=== PATIENT | female | born 1995 | race Caucasian/White ===

== ENCOUNTER 2016-09-07 18:29 | Emergency (ER) | payer SELFPAY ==
[2016-09-07] MEDS ORDERED: Bupivacaine 0.5% 10 ML SDV INJECT ONE (18:42)
[2016-09-07] MEDS ORDERED: Lidocaine 1% 20 ML MDV INJECT ONE (18:42)
[2016-09-07] MEDS ORDERED: Lidocaine 2% Viscous Solution 15 ML Cup PO ONE (18:42)
[2016-09-07] MEDS ORDERED: Benzocaine 20% Topical Spray UD MUCMEM ONE (18:42)
[2016-09-07 18:49] VITALS: BP 163/100
--- NOTE | 2016-09-07 18:58 | EDM.PDOC ---
ED HPI GENERAL MEDICAL PROBLEM - General Chief Complaint: General Stated Complaint: TOOTH PAIN Time Seen by Provider: 09/07/16 18:40 Source of Information: Reports: Patient History Limitations: Reports: No Limitations - History of Present Illness INITIAL COMMENTS - FREE TEXT/NARRATIVE: History of present illness: []Patient's had months of pain in her upper right molar and was at [facility] today when she developed sudden onset of severe pain. He denies any fevers, swelling biting on anything damaged tooth. Review of systems: As per history of present illness and below otherwise all systems reviewed and negative. Past medical history: As per history of present illness and as reviewed below otherwise noncontributory. Surgical history: As per history of present illness and as reviewed below otherwise noncontributory. Social history: No reported history of drug or alcohol abuse. Family history: As per history of present illness and as reviewed below otherwise noncontributory. Physical exam: General: Well developed, well nourished in NAD HEENT: Atraumatic, normocephalic, pupils reactive, negative for conjunctival pallor or scleral icterus, mucous membranes moist, throat clear, neck supple, nontender, trachea midline. Lungs: Clear to auscultation, breath sounds equal bilaterally, chest nontender. Heart: S1S2, regular, negative for clicks, rubs, or JVD. Abdomen: Soft, nondistended, nontender. Negative for masses or hepatosplenomegaly. Negative for costovertebral tenderness. Pelvis: Stable nontender. Genitourinary: Deferred. Rectal: Deferred. Extremities: Atraumatic, negative for cords or calf pain. Neurovascular unremarkable. Neuro: Awake, alert, oriented. Cranial nerves II through XII unremarkable. Cerebellum unremarkable. Motor and sensory unremarkable throughout. Exam nonfocal. Diagnostics: [] Therapeutics: []Dental balls, lidocaine and bupivacaine nerve block Impression: []Dental pain Plan: []Penicillin and tramadol for pain dental balls for pain follow-up with a dentist STEVE Definitive disposition and diagnosis as appropriate pending reevaluation and review of above. Dental Pain Pain Score (Numeric/FACES): 10 - Related Data Allergies Allergy/AdvReac Type Severity Reaction Status Date / Time sumatriptan [From Imitrex] Allergy Rash Verified 09/07/16 18:46 sumatriptan succinate Allergy Rash Verified 09/07/16 18:46 [From Imitrex] Home Meds: Home Meds Penicillin V Potassium 500 mg PO Q6HR #40 tab 09/07/16 [Rx] traMADol [Ultram] 50 mg PO Q8H PRN #12 tablet 09/07/16 [Rx] Past Medical History - Past Surgical History HEENT Surgical History: Reports: Eye Surgery GI Surgical History: Reports: Appendectomy Social & Family History - Family History Family Medical History: Noncontributory - Tobacco Use Smoking Status *Q: Current Every Day Smoker Years of Tobacco use: 11 Packs/Tins Daily: 0.5 Used Tobacco, but Quit: No Second Hand Smoke Exposure: Yes - Caffeine Use Caffeine Use: Reports: None - Recreational Drug Use Recreational Drug Use: No Recreational Drug Type: Reports: Methamphetamine (Unknown last use) ED ROS GENERAL - Review of Systems Review Of Systems: See Below ED EXAM, GENERAL - Physical Exam Exam: See Below (See history of present illness) Course - Vital Signs Last Recorded V/S: Last Vital Signs Temp 36.0 C 09/07/16 18:46 Pulse 109 H 09/07/16 18:46 Resp 16 09/07/16 18:46 BP 163/100 H 09/07/16 18:46 Pulse Ox 96 09/07/16 18:46 - Orders/Labs/Meds Meds: Medications Discontinued Medications Generic Name Dose Route Start Last Admin Trade Name Freq PRN Reason Stop Dose Admin Benzocaine 2 each 09/07/16 18:42 09/07/16 18:48 Hurricaine One 20% MUCMEM 09/07/16 18:43 2 each ONETIME ONE Administration Bupivacaine HCl 10 ml 09/07/16 18:42 09/07/16 18:48 Sensorcaine-Mpf 0.5% INJECT 09/07/16 18:43 10 ml ONETIME ONE Administration Lidocaine HCl 15 ml 09/07/16 18:42 09/07/16 18:48 Xylocaine 2% Viscous PO 09/07/16 18:43 15 ml ONETIME ONE Administration Lidocaine HCl 20 ml 09/07/16 18:42 09/07/16 18:48 Xylocaine 1% INJECT 09/07/16 18:43 20 ml ONETIME ONE Administration Departure - Departure Time of Disposition: 18:57 Disposition: Home, Self-Care 01 Condition: Good Clinical Impression: Pain, dental Clinical Impression: (Ruled Out): Dental implant pain - Discharge Information Prescriptions: Penicillin V Potassium 500 mg PO Q6HR #40 tab traMADol [Ultram] 50 mg PO Q8H PRN #12 tablet PRN Reason: Pain Referrals: PCP,None [Primary Care Provider] - Forms: ED Department Discharge Additional Instructions: The following information is given to patients seen in the emergency department who are being discharged to home. This information is to outline your options for follow-up care. We provide all patients seen in our emergency department with a follow-up referral. The need for follow-up, as well as the timing and circumstances, are variable depending upon the specifics of your emergency department visit. If you don't have a primary care physician on staff, we will provide you with a referral. We always advise you to contact your personal physician following an emergency department visit to inform them of the circumstance of the visit and for follow-up with them and/or the need for any referrals to a consulting specialist. The emergency department will also refer you to a specialist when appropriate. This referral assures that you have the opportunity for follow-up care with a specialist. All of these measure are taken in an effort to provide you with optimal care, which includes your follow-up. Under all circumstances we always encourage you to contact your private physician who remains a resource for coordinating your care. When calling for follow-up care, please make the office aware that this follow-up is from your recent emergency room visit. If for any reason you are refused follow-up, please contact the [facility] Emergency Department at and asked to speak to the emergency department charge nurse. Link to falls one every 3-4 hours as needed for pain, tramadol for pain take penicillin as directed. Follow-up with a dentist as soon as possible
== END 2016-09-07 19:09 | disposition home or self-care (01) ==
LOC: MW.ED 18:29
DX: K08.89 Other specified disorders of teeth and supporting structures (principal); F17.210 Nicotine dependence, cigarettes, uncomplicated; Z88.8 Allergy status to other drugs, medicaments and biological substances; Z90.49 Acquired absence of other specified parts of digestive tract
CPT/HCPCS: 64400; 99282; A9270; 99283

== ENCOUNTER 2018-12-29 09:48 | Emergency (ER) | payer SELFPAY ==
[2018-12-29] MEDS ORDERED: Ibuprofen 400 MG Tab PO ONE (10:11)
--- NOTE | 2018-12-29 10:12 | EDM.PDOC ---
ED HPI GENERAL MEDICAL PROBLEM - General Chief Complaint: Lower Extremity Injury/Pain Stated Complaint: PT FELL, RIGHT FOOT PAIN Time Seen by Provider: 12/29/18 10:07 Source of Information: Reports: Patient History Limitations: Reports: No Limitations - History of Present Illness INITIAL COMMENTS - FREE TEXT/NARRATIVE: pt. is a 23 y/;o female c/p pain to the right foot after slipping on a hardwood floor w/ wet socks while at home <10 hours ago. States the majority of pain is in the right foot around the pinky toe. Having a hard time ambulating. Has not used any OTC medications. Denies any fevers, chills or body aches. Denies any numbness or tingling of the toes. Right Ankle Pain Score (Numeric/FACES): 5 - Related Data Allergies Allergy/AdvReac Type Severity Reaction Status Date / Time sumatriptan [From Imitrex] Allergy Rash Verified 12/29/18 09:52 sumatriptan succinate Allergy Other Verified 12/29/18 09:52 [From Imitrex] Home Meds: Home Meds . 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: - Infectious Disease History Infectious Disease History: Reports: None - Past Surgical History HEENT Surgical History: Reports: Eye Surgery GI Surgical History: Reports: Appendectomy Social & Family History - Family History Family Medical History: Noncontributory - Tobacco Use Smoking Status *Q: Current Every Day Smoker Years of Tobacco use: 12 Packs/Tins Daily: 0.5 - Caffeine Use Caffeine Use: Reports: Coffee - Recreational Drug Use Recreational Drug Use: No Review of Systems - Review of Systems Review Of Systems: See Below Constitutional: Reports: No Symptoms Eyes: Reports: No Symptoms Mouth/Throat: Reports: No Symptoms Respiratory: Reports: No Symptoms Cardiovascular: Reports: No Symptoms GI/Abdominal: Reports: No Symptoms Musculoskeletal: Reports: Foot Pain (right ) Skin: Reports: No Symptoms Neurological: Reports: No Symptoms. Denies: Paresthesia, Tingling ED EXAM, GENERAL - Physical Exam Exam: See Below Exam Limited By: No Limitations General Appearance: Alert, No Apparent Distress Respiratory/Chest: No Respiratory Distress, Lungs Clear, Normal Breath Sounds Cardiovascular: Normal Peripheral Pulses, Regular Rate, Rhythm, No Edema GI/Abdominal: Soft, Non-Tender Extremities: Other (right foot : diffuse tenderness over right foot/right ankle / pain predomiannltly at lateral aspect of foot. no soft tissue swelling and / or other obvious deformity. tenderness at inferior pole of lateral malleoulus. FROM ) Psychiatric: Normal Affect, Anxious Skin Exam: Warm, Dry Course - Vital Signs Text/Narrative:: Right foot/ankle x-ray ordered. Last Recorded V/S: Last Vital Signs Temp 96.5 F 12/29/18 09:52 Pulse 85 12/29/18 09:52 Resp 18 12/29/18 09:52 BP 129/73 12/29/18 09:52 Pulse Ox 97 12/29/18 09:52 - Orders/Labs/Meds Orders: Active Orders 24 hr Category Date Time Status Ankle Min 3V Rt [CR] Stat Exams 12/29/18 10:07 Taken Foot 2V Rt [CR] Stat Exams 12/29/18 10:06 Taken Meds: Medications Discontinued Medications Generic Name Dose Route Start Last Admin Trade Name Chanoq PRN Reason Stop Dose Admin Ibuprofen 400 mg 12/29/18 10:11 12/29/18 10:21 Motrin PO 12/29/18 10:12 400 mg ONETIME ONE Administration - Re-Assessments/Exams Free Text/Narrative Re-Assessment/Exam: Acute fx seen on X-ray; posterior mold splint applied ; Advised to follow up with orthopedics w/in 1-2 days 12/29/18 11:08 Departure - Departure Time of Disposition: 11:08 Disposition: Home, Self-Care 01 Clinical Impression: Metatarsal fracture - Discharge Information Referrals: PCP,None [Primary Care Provider] - Forms: ED Department Discharge Additional Instructions: Patient advised to follow up with Orthopedics within 1-2 days. Continue to use Crutches until seen by orthopedics. Can use OTC ibuprofen and/or tylenol for pain relief. Avoid weight bearing until told otherwise by orthopedics. Follow up with PCP within 1-2 weeks. - My Orders Last 24 Hours: My Active Orders 12/29/18 10:06 Foot 2V Rt [CR] Stat 12/29/18 10:07 Ankle Min 3V Rt [CR] Stat - Assessment/Plan Last 24 Hours: My Active Orders 12/29/18 10:06 Foot 2V Rt [CR] Stat 12/29/18 10:07 Ankle Min 3V Rt [CR] Stat
--- NOTE | 2018-12-29 11:20 | CR ---
EXAM DATE: 12/29/18 PATIENT'S AGE: 23 Right foot: Two views of the right foot were obtained. Comparison: No previous foot exam. Fracture is identified within the distal right fifth metatarsal shaft. Alignment is close to anatomic is seen on this exam. No additional fracture or other bony abnormality is seen. Impression: 1. Fifth metatarsal fracture. 2. No additional abnormality is appreciated. Diagnostic code #3 Report Signed by Proxy. VALENTINA
--- NOTE | 2018-12-29 11:22 | CR ---
EXAM DATE: 12/29/18 PATIENT'S AGE: 23 Right ankle: Three views of the right ankle were obtained. Comparison: No prior right ankle imaging. Findings: Distal fifth metatarsal shaft fracture is again seen. Ankle mortise is symmetric. No additional fracture or other bony abnormality is seen. Impression: 1. Distal fifth metatarsal fracture is again seen. 2. Right ankle study is otherwise unremarkable. Diagnostic code #3 Report Signed by Proxy. [facility] NETWORKNathan
[2018-12-29 11:25] VITALS: BP 124/72; PULSE 78
== END 2018-12-29 11:24 | disposition home or self-care (01) ==
LOC: MW.ED 09:48
DX: S92.351A Displaced fracture of fifth metatarsal bone, right foot, initial encounter for closed fracture (principal); F17.210 Nicotine dependence, cigarettes, uncomplicated; Z88.8 Allergy status to other drugs, medicaments and biological substances; Z90.49 Acquired absence of other specified parts of digestive tract; W01.10XA Fall on same level from slipping, tripping and stumbling with subsequent striking against unspecified object, initial encounter; Y92.009 Unspecified place in unspecified non-institutional (private) residence as the place of occurrence of the external cause
CPT/HCPCS: 29515; 73610; 73620; 99283; A9270

== ENCOUNTER 2019-06-14 23:21 | Emergency (ER) | payer OTHER ==
--- NOTE | 2019-06-14 23:39 | EDM.PDOC ---
ED HPI GENERAL MEDICAL PROBLEM - General Chief Complaint: Lower Extremity Injury/Pain Stated Complaint: LEFT FOOT PROBLEM Time Seen by Provider: 06/14/19 23:33 Source of Information: Reports: Patient History Limitations: Reports: No Limitations - History of Present Illness INITIAL COMMENTS - FREE TEXT/NARRATIVE: 24-year-old female presents to the emergency room chief complaint of swelling to the left lower foot. Has redness for the past 2 days patient has had this for a couple days and now has pain and some draining. Some redness in the area. Onset: Today Duration: Day(s): (2) Severity: Mild Improves with: Reports: None Associated Symptoms: Reports: No Other Symptoms Left Foot Pain Score (Numeric/FACES): 6 - Related Data Allergies Allergy/AdvReac Type Severity Reaction Status Date / Time sumatriptan [From Imitrex] Allergy Rash Verified 06/14/19 23:35 sumatriptan succinate Allergy Other Verified 06/14/19 23:35 [From Imitrex] Home Meds: Home Meds cephALEXin [Keflex] 500 mg PO Q6HR 10 Days #20 capsule 06/15/19 [Rx] Past Medical History HEENT History: Reports: Other (See Below) Other HEENT History: wears glasses Gastrointestinal History: Reports: None 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: - Infectious Disease History Infectious Disease History: Reports: None - Past Surgical History HEENT Surgical History: Reports: Eye Surgery GI Surgical History: Reports: Appendectomy Social & Family History - Family History Family Medical History: Noncontributory - Caffeine Use Caffeine Use: Reports: Coffee Review of Systems - Review of Systems Review Of Systems: See Below Constitutional: Reports: No Symptoms Eyes: Reports: No Symptoms Ears: Reports: No Symptoms Nose: Reports: No Symptoms Mouth/Throat: Reports: No Symptoms Respiratory: Reports: No Symptoms Cardiovascular: Reports: No Symptoms GI/Abdominal: Reports: No Symptoms Genitourinary: Reports: No Symptoms Musculoskeletal: Reports: No Symptoms Skin: Reports: Lumps (Drainage to the foot) Neurological: Reports: No Symptoms Psychiatric: Reports: No Symptoms ED EXAM, GENERAL - Physical Exam Exam: See Below Exam Limited By: No Limitations General Appearance: Alert, WD/WN, No Apparent Distress Eye Exam: Bilateral Eye: Normal Inspection, PERRL Nose: Normal Inspection, Normal Mucosa Throat/Mouth: Normal Inspection, Normal Lips Head: Atraumatic, Normocephalic Respiratory/Chest: No Respiratory Distress, Lungs Clear Cardiovascular: Normal Peripheral Pulses, Regular Rate, Rhythm GI/Abdominal: Normal Bowel Sounds, Soft, Non-Tender (Female) Exam: Normal External Exam, Normal Speculum Exam Rectal (Female) Exam: Normal Exam Back Exam: Normal Inspection Extremities: Normal Inspection Neurological: Alert, Oriented, CN II-XII Intact, Normal Reflexes, No Motor/ Sensory Deficits Psychiatric: Normal Affect, Normal Mood Skin Exam: Warm, Dry, Intact, Normal Color, No Rash Course - Vital Signs Text/Narrative:: 24-year-old female presents to the emergency room with a chief complaint of swelling to her heel that is been going on for years. Patient states that over the past 2 days something ruptured and she has some discharge from her heel. Patient now states she has pain in the area and cannot walk. ER course: EValuation patient has swelling to heel with some redness. Patient has no evidence of significant cellulitis but is tender in the heel area. Normal CBC and electrolyte panel. : Assessment Probable ruptured cyst We will have the patient follow-up with the music autographer and give the patient antibiotics as well as crutches. Last Recorded V/S: Last Vital Signs Temp 97.2 F 06/14/19 23:32 Pulse 96 06/14/19 23:32 Resp 20 06/14/19 23:32 BP 142/77 H 06/14/19 23:32 Pulse Ox 99 06/14/19 23:32 - Orders/Labs/Meds Labs: Laboratory Tests 06/14/19 06/14/19 Range/Units 23:50 23:50 WBC 9.14 (4.0-11.0) K/uL RBC 4.26 L (4.30-5.90) M/uL Hgb 11.8 L (12.0-16.0) g/dL Hct 37.9 (36.0-46.0) % MCV 89.0 (80.0-98.0) fL MCH 27.7 (27.0-32.0) pg MCHC 31.1 (31.0-37.0) g/dL RDW Std Deviation 48.4 (28.0-62.0) fl RDW Coeff of Brenda 15 (11.0-15.0) % Plt Count 331 (150-400) K/uL MPV 9.20 (7.40-12.00) fL Neut % (Auto) 57.2 (48.0-80.0) % Lymph % (Auto) 35.9 (16.0-40.0) % Becker % (Auto) 5.6 (0.0-15.0) % Eos % (Auto) 1.1 (0.0-7.0) % Baso % (Auto) 0.2 (0.0-1.5) % Neut # (Auto) 5.2 (1.4-5.7) K/uL Lymph # (Auto) 3.3 H (0.6-2.4) K/uL Becker # (Auto) 0.5 (0.0-0.8) K/uL Eos # (Auto) 0.1 (0.0-0.7) K/uL Baso # (Auto) 0.0 (0.0-0.1) K/uL Nucleated RBC % 0.0 /100WBC Nucleated RBCs # 0 K/uL Sodium 138 (136-145) mmol/L Potassium 3.5 (3.5-5.1) mmol/L Chloride 103 (98-107) mmol/L Carbon Dioxide 27.0 (21.0-32.0) mmol/L BUN 15 (7.0-18.0) mg/dL Creatinine 0.8 (0.6-1.0) mg/dL Est Cr Clr Drug Dosing TNP Estimated GFR (MDRD) > 60.0 ml/min Glucose 99 (74-106) mg/dL Calcium 8.3 L (8.5-10.1) mg/dL Total Bilirubin 0.2 (0.2-1.0) mg/dL AST 16 (15-37) IU/L ALT 33 (14-63) IU/L Alkaline Phosphatase 91 (46-116) U/L Total Protein 7.3 (6.4-8.2) g/dL Albumin 3.6 (3.4-5.0) g/dL Globulin 3.7 (2.6-4.0) g/dL Albumin/Globulin Ratio 1.0 (0.9-1.6) Departure - Departure Time of Disposition: 00:12 Disposition: Home, Self-Care 01 Condition: Good Clinical Impression: Sebaceous cyst - Discharge Information Instructions: Crutch Use, Adult, [id number] Referrals: PCP,None [Primary Care Provider] - Forms: ED Department Discharge Additional Instructions: 1. Patient is to follow-up with the music autographer 2. Patient to take the antibiotics as prescribed . Patient to use crutches for ambulation Sepsis Event Note - Focused Exam Vital Signs: Vital Signs Temp Pulse Resp BP Pulse Ox 06/14/19 23:32 97.2 F 96 20 142/77 H 99 Date Exam was Performed: 06/15/19 Time Exam was Performed: 00:08
[2019-06-15 00:07] LABS: BLOOD UREA NITROGEN,BUN 15 mg/dL (7.0-18.0); CHLORIDE,CL 103 mmol/L (98-107); GLUCOSE RANDOM 99 mg/dL (74-106); POTASSIUM,K 3.5 mmol/L (3.5-5.1); SODIUM,NA 138 mmol/L (136-145)
[2019-06-15 02:46] VITALS: BP 133/76; PULSE 73
== END 2019-06-15 00:25 | disposition home or self-care (01) ==
LOC: MW.ED 23:21
DX: L72.3 Sebaceous cyst (principal); Z88.8 Allergy status to other drugs, medicaments and biological substances
CPT/HCPCS: 36415; 80053; 85025; 99282; 99283

== ENCOUNTER 2019-07-08 09:56 | Inpatient (IN) | payer SELFPAY ==
[2019-07-08] MEDS ORDERED: Ondansetron 4 MG/2 ML SDV IVPUSH PRN (10:00)
[2019-07-08] MEDS ORDERED: Sodium Chloride 0.9% 2.5 ML Syringe FLUSH PRN (10:00)
[2019-07-08] MEDS ORDERED: Acetaminophen 325 MG Tab PO PRN (10:00)
[2019-07-08] MEDS: oxyCODONE 5 MG Tab PO PRN ×2 (11:12→19:56)
[2019-07-08 12:14] LABS: BLOOD UREA NITROGEN,BUN 17 mg/dL (7.0-18.0); CARBON DIOXIDE,CO2 25.3 mmol/L (21.0-32.0); CHLORIDE,CL 105 mmol/L (98-107); GLUCOSE RANDOM 97 mg/dL (74-106); POTASSIUM,K 3.7 mmol/L (3.5-5.1); SODIUM,NA 141 mmol/L (136-145)
--- NOTE | 2019-07-08 12:15 | PCM.HP.2 ---
H&P History of Present Illness - General Date of Service: 07/08/19 Admit Problem/Dx: Admission Diagnosis/Problem Admission Diagnosis/Problem Cellulitis - History of Present Illness Initial Comments - Free Text/Narative: The patient is a 24 year old female who was directly admitted from Dr. Armas's clinic. Patient was seen in the ER on 06/14/19 with pain and swelling on left heel, labs at that time were wnl. She was discharged on Keflex which she finished and was referred to podiatry. She had an appt with Dr. Armas on 07/03, at that he switched her antibiotics but she is unsure which antibiotic she was on. She was seen again yesterday by Dr. Armas and the patient states he drained an abscess from the bottom of her foot. She is unsure how she developed this, denies injury or trauma. Denies hx of anything like this. Denies any past medical history. Denies fever/chills, chest pain, shortness of breath, or abdominal pain. - Related Data Allergies/Adverse Reactions: Allergies Allergy/AdvReac Type Severity Reaction Status Date / Time sumatriptan [From Imitrex] Allergy Rash Verified 07/08/19 10:05 sumatriptan succinate Allergy Other Verified 07/08/19 10:05 [From Imitrex] Home Medications: Home Meds . 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: Musculoskeletal History: Reports: Other (See Below) Other Musculoskeletal History: broken right foot Neurological History: Reports: None Psychiatric History: Reports: None Endocrine/Metabolic History: Reports: None Hematologic History: Reports: None Immunologic History: Reports: None Oncologic (Cancer) History: Reports: None Dermatologic History: Reports: None - Infectious Disease History Infectious Disease History: Reports: None - Past Surgical History HEENT Surgical History: Reports: Eye Surgery GI Surgical History: Reports: Appendectomy Social & Family History - Family History Family Medical History: Noncontributory - Tobacco Use Smoking Status *Q: Current Every Day Smoker Years of Tobacco use: 13 Packs/Tins Daily: 0.5 - Caffeine Use Caffeine Use: Reports: Coffee, Energy Drinks - Recreational Drug Use Recreational Drug Use: Yes Recreational Drug Type: Reports: Marijuana/Hashish Recreational Drug Use Frequency: Rarely H&P Review of Systems - Review of Systems: Review Of Systems: See Below General: Reports: No Symptoms HEENT: Reports: No Symptoms Pulmonary: Reports: No Symptoms Cardiovascular: Reports: No Symptoms Gastrointestinal: Reports: No Symptoms Genitourinary: Reports: No Symptoms Musculoskeletal: Reports: Foot Pain Skin: Reports: Erythema, Wound Psychiatric: Reports: No Symptoms Neurological: Reports: No Symptoms Hematologic/Lymphatic: Reports: No Symptoms Immunologic: Reports: No Symptoms Exam - Exam Exam: See Below - Vital Signs Vital Signs: Last Vital Signs Temp 98.5 F 07/08/19 10:24 Pulse 106 H 07/08/19 10:24 Resp 18 07/08/19 10:24 BP 107/66 07/08/19 10:24 Pulse Ox 98 07/08/19 10:42 Weight: 104.326 kg - Exam General: Alert, Oriented, Cooperative HEENT: Conjunctiva Clear, EOMI, Mucosa Moist & [place], Posterior Pharynx Clear, Pupils Equal, Pupils Reactive Lungs: Clear to Auscultation, Normal Respiratory Effort Cardiovascular: Regular Rate, Regular Rhythm GI/Abdominal Exam: Normal Bowel Sounds, Soft, Non-Tender, No Distention Extremities: No Pedal Edema Skin: Wound Psychiatric: Alert, Normal Affect, Normal Mood - Patient Data Lab Results Last 24 hrs: Laboratory Results - last 24 hr 07/08/19 Range/Units 10:44 WBC 6.18 (4.0-11.0) K/uL RBC 4.10 L (4.30-5.90) M/uL Hgb 11.5 L (12.0-16.0) g/dL Hct 36.1 (36.0-46.0) % MCV 88.0 (80.0-98.0) fL MCH 28.0 (27.0-32.0) pg MCHC 31.9 (31.0-37.0) g/dL RDW Std Deviation 48.1 (28.0-62.0) fl RDW Coeff of Brenda 15 (11.0-15.0) % Plt Count 332 (150-400) K/uL MPV 9.60 (7.40-12.00) fL Neut % (Auto) 58.3 (48.0-80.0) % Lymph % (Auto) 33.7 (16.0-40.0) % [place] % (Auto) 6.0 (0.0-15.0) % Eos % (Auto) 1.8 (0.0-7.0) % Baso % (Auto) 0.2 (0.0-1.5) % Neut # (Auto) 3.6 (1.4-5.7) K/uL Lymph # (Auto) 2.1 (0.6-2.4) K/uL [place] # (Auto) 0.4 (0.0-0.8) K/uL Eos # (Auto) 0.1 (0.0-0.7) K/uL Baso # (Auto) 0.0 (0.0-0.1) K/uL Nucleated RBC % 0.0 /100WBC Nucleated RBCs # 0 K/uL Result Diagrams: 07/08/19 10:44 07/08/19 10:44 Sepsis Event Note - Evaluation Sepsis Screening Result: No Definite Risk - Focused Exam Vital Signs: Vital Signs Temp Pulse Resp BP Pulse Ox Pulse Ox 07/08/19 10:42 98 07/08/19 10:24 98.5 F 106 H 18 107/66 97 Date Exam was Performed: 07/08/19 Time Exam was Performed: 13:09 Problem List Initiated/Reviewed/Updated: Yes Orders Last 24hrs: Active Orders 24 hr Category Date Time Status Patient Status [ADT] Routine ADT 07/08/19 10:00 Active Antiembolic Devices [RC] PER UNIT ROUTINE Care 07/08/19 10:01 Active Intake and Output [RC] Q12H Care 07/08/19 10:01 Active Notify Provider Consults [RC] ASDIRECTED Care 07/08/19 10:42 Active Oxygen Therapy [RC] PRN Care 07/08/19 10:00 Active Up With Assistance [RC] ASDIRECTED Care 07/08/19 10:00 Active VTE/DVT Education [RC] PER UNIT ROUTINE Care 07/08/19 10:00 Active Vital Signs [RC] Q4H Care 07/08/19 10:00 Active Consult to Physician [CONS] Routine Cons 07/08/19 10:41 Active Regular Diet [DIET] Diet 07/08/19 Lunch Active Foot w wo Cont Lt [MR] Urgent Exams 07/08/19 10:02 Ordered Tibia Fibula w wo Cont Lt [MR] Urgent Exams 07/08/19 10:43 Ordered COMPREHENSIVE METABOLIC PN,CMP [CHEM] Routine Lab 07/08/19 10:44 Received CULTURE BLOOD [BC] Stat Lab 07/08/19 10:44 Received CULTURE BLOOD [BC] Stat Lab 07/08/19 11:00 Received CULTURE WOUND [RM] Routine Lab 07/08/19 11:40 Received HCG QUALITATIVE,SERUM [CHEM] Routine Lab 07/08/19 10:44 Received Acetaminophen [Tylenol] Med 07/08/19 10:00 Active 650 mg PO Q4H PRN Ondansetron [Zofran] Med 07/08/19 10:00 Active 4 mg IVPUSH Q4H PRN Pharmacy to Dose - Vancomycin Med 07/08/19 10:15 Active 1 dose .XX ASDIRECTED Sodium Chloride 0.9% [Saline Flush] Med 07/08/19 10:00 Active 2.5 ml FLUSH ASDIRECTED PRN VANCOmycin/Water for INJ (PEG) [VANCOmycin 1.5 GM/300 Med 07/08/19 10:45 Active ML Premix] 1.5 gm Premix Bag 1 bag IV ONETIME oxyCODONE Med 07/08/19 10:00 Active 5 mg PO Q4H PRN Blood Culture x2 Reflex Set [OM.PC] Stat Oth 07/08/19 10:00 Ordered Saline Lock Insert [OM.PC] Routine Oth 07/08/19 10:00 Ordered Sequential Compression Device [OM.PC] Per Unit Routine Oth 07/08/19 10:01 Ordered Resuscitation Status Routine Resus Stat 07/08/19 10:00 Ordered Medication Orders Acetaminophen (Tylenol) 650 mg PO Q4H PRN PRN Reason: Pain (Mild 1-3)/fever Vancomycin HCl 1.5 gm/ Premix 300 mls @ 200 mls/hr IV ONETIME ONE Stop: 07/08/19 12:14 Ondansetron HCl (Zofran) 4 mg IVPUSH Q4H PRN PRN Reason: Nausea Oxycodone HCl (Oxycodone) 5 mg PO Q4H PRN PRN Reason: Pain (moderate 4-6) Last Admin: 07/08/19 11:12 Dose: 5 mg Sodium Chloride (Saline Flush) 2.5 ml FLUSH ASDIRECTED PRN PRN Reason: Keep Vein Open Vancomycin HCl (Pharmacy To Dose - Vancomycin) 1 dose .XX ASDIRECTED NUNU Assessment/Plan Comment:: 1. Admit as inpatient 2. Code status- full 3. Vitals per routine 4. I/Os per routine 5. Diet- regular 6. DVT prophylaxis with SCDs 7. Foot ulcer with cellulitis- CBC and CMP wnl. Wound culture and blood cultures pending. MRI of foot and leg pending. Start on Vancomycin and IVF. Dr. Armas, podiatry consulted
--- NOTE | 2019-07-08 13:05 | PCM.SN.2 ---
- Free Text/Narrative Note: Called to medical surgical unit for an IV start. Patient identified. Verbal consent obtained. Tourniquet applied to right arm. Site cleansed with alcohol wipes. 22g IV catheter on first attempt. Flushes well. Saline locked and taped in place.
[2019-07-08] MEDS ORDERED: Gadobenate Dimeglumine 529 MG/ML 20 ML SDV IVPUSH STA (15:53)
[2019-07-08] MEDS: Sodium Chloride 0.9% 1,000 ML IV SCH (17:00)
--- NOTE | 2019-07-08 17:25 | MR ---
MRI left foot (without and with intravenous contrast) Limitations: Rather marked motion artifact is seen throughout the study which limits details. Comparison: Previous left foot exam is not available. Findings: Diffuse soft tissue swelling is seen within the foot. No definite bone marrow edema is identified to indicate osteomyelitis. No definite abnormal bony enhancement is seen to indicate definite osteomyelitis. Mild enhancement is seen of the subcutaneous tissues compatible with cellulitis. No focal fluid collections are appreciated to indicate definite soft tissue abscess. Slight cystic change is noted within the talar neck believed to be incidental. Impression: 1. Suboptimal exam due to motion. 2. Diffuse cellulitis. 3. No definite findings of osteomyelitis are appreciated. Diagnostic code #3 This report was dictated in MDT
--- NOTE | 2019-07-08 17:25 | MR ---
MRI left tibia and fibula (without and with intravenous contrast) Technique: T2 fat suppressed and T1 weighted axial; T2 fat suppressed coronal; post contrast T1 fat-suppressed axial and coronal images were obtained. Findings: Diffuse subcutaneous edema is seen throughout the lower extremity. Fluid is seen at the interface of the muscle and subcutaneous fat. No focal fluid collections of abscess are seen. No definite areas of abnormal enhancement are seen. No marrow abnormalities are seen. Normal low signal cortex is seen within the tibia and fibula. Impression: 1. Diffuse subcutaneous edema as well as fluid at the subcutaneous fat and muscle interface. No significant enhancement is seen. Findings may represent minimal cellulitis but poor enhancement would indicate low level infection if present. 2. No soft tissue abscess is seen. No acute bony finding is seen. Diagnostic code #3 This report was dictated in MDT
--- NOTE | 2019-07-08 20:10 | PCM.CONS ---
H&P History of Present Illness - General Date of Service: 07/08/19 Admit Problem/Dx: Admission Diagnosis/Problem Admission Diagnosis/Problem Cellulitis Source of Information: Patient, Provider History Limitations: Reports: No Limitations - History of Present Illness Initial Comments - Free Text/Narative: Patient was seen by me for the first time on July 06, 2019. She was seen only on that date in my office. Today is the first time I have seen patient since her first and only visit to my office - this is stated to clarify/correct the other provider note/notes today. Yesterday, I did have 2 video calls and one phone call with patient and based on what I was able to see on Facetime I determined patient requires MRI and admission. I coordinated with Sherice Arnold who was very helpful in arranging for admission, and MRI of left lower extremity. The patient contacted my office approximately 4 weeks ago and was instructed to go to [place] or elsewhere for treatment as my office was closed with no date of reopening known at that time. Patient did not manage to do this , she states because she was told she could not be seen without a referral. In any event, the patient stated that she has had this problem for years on her left heel but it blew up in the last month. I performed an incision and drainage of a pus filled abscess on left plantar heel at her July 06, 2019 visit in my office. I prescribed Bactrim DS bid and due patient's high pain level I deferred getting a deep culture at that time and planned to see her on July 09, 2019. However after the video and audio calls I had with her on the evening of July 06, yesterday, I noted proximal erythema on posterior left leg and directed patient to present for direct admission by Dr. Arnold at 9 a.m. today. Patient stated on first video call with me yesterday that she was going to pickup the antibiotic prescribed on July 05, and therefore had not started it. She eventually took her first dose last night. I requested and Dr. Arnold agreed to direct admit and MRI today. Onset of Symptoms: Reports: Gradual Duration of Symptoms: Reports: Week(s): (at least 4 weeks) Location: Reports: Lower Extremity, Left Quality: Reports: Pressure, Sharp, Throbbing Severity: Severe Improves with: Reports: Other (patient reported relief the day after the I&D at her initial office visit) - Related Data Allergies/Adverse Reactions: Allergies Allergy/AdvReac Type Severity Reaction Status Date / Time sumatriptan [From Imitrex] Allergy Rash Verified 07/08/19 10:05 sumatriptan succinate Allergy Other Verified 07/08/19 10:05 [From Imitrex] Home Medications: Home Meds . 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: Musculoskeletal History: Reports: Other (See Below) Other Musculoskeletal History: broken right foot Neurological History: Reports: None Psychiatric History: Reports: None Endocrine/Metabolic History: Reports: None Hematologic History: Reports: None Immunologic History: Reports: None Oncologic (Cancer) History: Reports: None Dermatologic History: Reports: None - Infectious Disease History Infectious Disease History: Reports: None - Past Surgical History HEENT Surgical History: Reports: Eye Surgery GI Surgical History: Reports: Appendectomy Social & Family History - Family History Family Medical History: Noncontributory - Tobacco Use Smoking Status *Q: Current Every Day Smoker Years of Tobacco use: 13 Packs/Tins Daily: 0.5 - Caffeine Use Caffeine Use: Reports: Coffee, Energy Drinks - Recreational Drug Use Recreational Drug Use: Yes Recreational Drug Type: Reports: Marijuana/Hashish Recreational Drug Use Frequency: Rarely H&P Review of Systems - Review of Systems: Review Of Systems: Comprehensive ROS is negative, except as noted in HPI. Exam - Exam Exam: See Below - Vital Signs Vital Signs: Last Vital Signs Temp 36.7 C 07/08/19 17:05 Pulse 61 07/08/19 17:05 Resp 16 07/08/19 17:05 BP 102/53 L 07/08/19 17:05 Pulse Ox 98 07/08/19 17:05 Weight: 104.326 kg - Exam Extremities: Increased Warmth, Redness, Other (significant improvement following 07/05 I&D left foot. There is a 2 cm diameter ulcer at least to level of tendon in center of drained abscess.) Peripheral Pulses: 2+: Posterior Tibial (L), Posterior Tibial (R), Dorsalis Pedis (L), Dorsalis Pedis (R) Skin: Warm Neuro Extensive - Mental Status: Alert, Oriented x3, Normal Mood/Affect, Normal Cognition, Memory Intact - Patient Data Lab Results Last 24 hrs: Laboratory Results - last 24 hr 07/08/19 07/08/19 07/08/19 Range/Units 10:44 10:44 10:44 WBC 6.18 (4.0-11.0) K/uL RBC 4.10 L (4.30-5.90) M/uL Hgb 11.5 L (12.0-16.0) g/dL Hct 36.1 (36.0-46.0) % MCV 88.0 (80.0-98.0) fL MCH 28.0 (27.0-32.0) pg MCHC 31.9 (31.0-37.0) g/dL RDW Std Deviation 48.1 (28.0-62.0) fl RDW Coeff of Brenda 15 (11.0-15.0) % Plt Count 332 (150-400) K/uL MPV 9.60 (7.40-12.00) fL Neut % (Auto) 58.3 (48.0-80.0) % Lymph % (Auto) 33.7 (16.0-40.0) % [place] % (Auto) 6.0 (0.0-15.0) % Eos % (Auto) 1.8 (0.0-7.0) % Baso % (Auto) 0.2 (0.0-1.5) % Neut # (Auto) 3.6 (1.4-5.7) K/uL Lymph # (Auto) 2.1 (0.6-2.4) K/uL [place] # (Auto) 0.4 (0.0-0.8) K/uL Eos # (Auto) 0.1 (0.0-0.7) K/uL Baso # (Auto) 0.0 (0.0-0.1) K/uL Nucleated RBC % 0.0 /100WBC Nucleated RBCs # 0 K/uL Sodium 141 (136-145) mmol/L Potassium 3.7 (3.5-5.1) mmol/L Chloride 105 (98-107) mmol/L Carbon Dioxide 25.3 (21.0-32.0) mmol/L BUN 17 (7.0-18.0) mg/dL Creatinine 0.7 (0.6-1.0) mg/dL Est Cr Clr Drug Dosing 96.32 mL/min Estimated GFR (MDRD) > 60.0 ml/min Glucose 97 (74-106) mg/dL Calcium 8.3 L (8.5-10.1) mg/dL Total Bilirubin 0.1 L (0.2-1.0) mg/dL AST 23 (15-37) IU/L ALT 29 (14-63) IU/L Alkaline Phosphatase 79 (46-116) U/L Total Protein 6.7 (6.4-8.2) g/dL Albumin 3.2 L (3.4-5.0) g/dL Globulin 3.5 (2.6-4.0) g/dL Albumin/Globulin Ratio 0.9 (0.9-1.6) HCG, Qual NEGATIVE (NEG) Result Diagrams: 07/08/19 10:44 07/08/19 10:44 Sepsis Event Note - Evaluation Sepsis Screening Result: No Definite Risk - Focused Exam Vital Signs: Vital Signs Temp Pulse Resp BP Pulse Ox Pulse Ox 07/08/19 17:05 36.7 C 61 16 102/53 L 98 07/08/19 10:42 98 07/08/19 10:24 36.9 C 106 H 18 107/66 97 Date Exam was Performed: 07/08/19 Time Exam was Performed: 19:59 *Q Meaningful Use (ADM) - VTE Risk Assess *Q Each Risk Factor Represents 1 Point: Minor Surgery Planned Total Score 1 Point Risk Factors: 1 Consult PN Assessment/Plan Procedures: Procedures APPLICATION LOWER LEG SPLINT (12/29/18) ASSAY OF BLOOD/URIC ACID (07/08/13) ASSAY OF FIBRONECTIN (05/31/13) ASSAY OF MAGNESIUM (07/09/13) ASSAY OF PROLACTIN (10/27/15) ASSAY THYROID STIM HORMONE (12/22/17) BLOOD TYPING SEROLOGIC ABO (07/09/13) BLOOD TYPING SEROLOGIC RH(D) (07/09/13) CHORIONIC GONADOTROPIN ASSAY (09/13/17) CHYLMD TRACH DNA AMP PROBE (02/10/14) COMPLETE CBC AUTOMATED (07/09/13) COMPLETE CBC W/AUTO DIFF WBC (06/14/19) COMPREHEN METABOLIC PANEL (06/14/19) CT HEAD/BRAIN W/O DYE (09/13/17) CULTURE OTHR SPECIMN AEROBIC (08/13/13) CULTURE SCREEN ONLY (06/19/13) DRUG SCRN 1+ CLASS NONCHROMO (05/31/13) ELECTROCARDIOGRAM TRACING (12/22/17) EMERGENCY DEPT VISIT (06/14/19) EMERGENCY DEPT VISIT (12/22/17) EMERGENCY DEPT VISIT (09/17/17) EMERGENCY DEPT VISIT (09/13/17) EMERGENCY DEPT VISIT (09/07/16) EMERGENCY DEPT VISIT (01/27/14) NON-STRESS TEST (05/31/13) HYDRATE IV INFUSION ADD-ON (05/31/13) HYDRATION IV INFUSION INIT (05/31/13) N.GONORRHOEAE DNA AMP PROB (02/10/14) NJX AA&/STRD TRIGEMINAL NRV (09/07/16) RBC ANTIBODY SCREEN (07/09/13) ROUTINE VENIPUNCTURE (06/14/19) SMEAR WET MOUNT SALINE/INK (02/10/14) TRANSVAGINAL US NON-OB (02/25/14) URINALYSIS AUTO W/O SCOPE (07/08/13) URINALYSIS AUTO W/SCOPE (05/31/13) URINALYSIS VOLUME MEASURE (07/09/13) X-RAY EXAM OF ANKLE (12/29/18) X-RAY EXAM OF FOOT (12/29/18) (1) Foot ulcer with fat layer exposed SNOMED Code(s): 35942442, 36237064 Code(s): L97.502 - NON-PRS CHRONIC ULCER OTH PRT UNSP FOOT W FAT LAYER EXPOSED Current Visit: Yes Problem List Initiated/Reviewed/Updated: Yes Plan: 1. Patient examined and evaluated. 2. OR I&D of left foot ulcer planned in next day or two pending OR availability. 3. Every other day dressing changes will be done at a minimum. I will do the dressing changes unless I place wound care orders. 4. MRI of left lower extremity does not indicate that infection reached bone, however, further debridement of necrotic tissue is required and true depth of ulcer will be determined in the OR. 5. Culture was taken earlier today and is pending. 6. Continue IV antibiotics. 7. Dressing change done this evening. I flushed left foot ulcer with saline mixed with betadine. 8. Will follow.
[2019-07-09] MEDS: Sodium Chloride 0.9% 1,000 ML IV SCH ×2 (03:06→13:15)
[2019-07-09 06:08] LABS: BLOOD UREA NITROGEN,BUN 12 mg/dL (7.0-18.0); CARBON DIOXIDE,CO2 26.7 mmol/L (21.0-32.0); CHLORIDE,CL 107 mmol/L (98-107); GLUCOSE RANDOM 95 mg/dL (74-106); POTASSIUM,K 3.5 mmol/L (3.5-5.1); SODIUM,NA 139 mmol/L (136-145)
[2019-07-09] MEDS: oxyCODONE 5 MG Tab PO PRN ×2 (07:58→22:01)
--- NOTE | 2019-07-09 11:13 | PCM.PN ---
- General Info Date of Service: 07/09/19 Subjective Update: Patient still reports foot pain but states the pain and redness is improving on the leg. Denies any other issues. Tolerating oral diet. - Review of Systems General: Reports: No Symptoms HEENT: Reports: No Symptoms Pulmonary: Reports: No Symptoms Cardiovascular: Reports: No Symptoms Gastrointestinal: Reports: No Symptoms Genitourinary: Reports: No Symptoms Musculoskeletal: Reports: Foot Pain Skin: Reports: Other (erythema) Neurological: Reports: No Symptoms Psychiatric: Reports: No Symptoms - Patient Data Vitals - Most Recent: Last Vital Signs Temp 98.1 F 07/09/19 08:00 Pulse 64 07/09/19 08:00 Resp 20 07/09/19 08:00 BP 110/47 L 07/09/19 08:00 Pulse Ox 97 07/09/19 08:00 Weight - Most Recent: 104.326 kg I&O - Last 24 Hours: Intake & Output 07/08/19 07/09/19 07/09/19 22:59 06:59 14:59 Intake Total 1250 500 Output Total 400 600 Balance 850 -100 Lab Results Last 24 Hours: Laboratory Results - last 24 hr 07/08/19 07/08/19 07/08/19 Range/Units 10:44 10:44 10:44 WBC 6.18 (4.0-11.0) K/uL RBC 4.10 L (4.30-5.90) M/uL Hgb 11.5 L (12.0-16.0) g/dL Hct 36.1 (36.0-46.0) % MCV 88.0 (80.0-98.0) fL MCH 28.0 (27.0-32.0) pg MCHC 31.9 (31.0-37.0) g/dL RDW Std Deviation 48.1 (28.0-62.0) fl RDW Coeff of Brenda 15 (11.0-15.0) % Plt Count 332 (150-400) K/uL MPV 9.60 (7.40-12.00) fL Neut % (Auto) 58.3 (48.0-80.0) % Lymph % (Auto) 33.7 (16.0-40.0) % [place] % (Auto) 6.0 (0.0-15.0) % Eos % (Auto) 1.8 (0.0-7.0) % Baso % (Auto) 0.2 (0.0-1.5) % Neut # (Auto) 3.6 (1.4-5.7) K/uL Lymph # (Auto) 2.1 (0.6-2.4) K/uL [place] # (Auto) 0.4 (0.0-0.8) K/uL Eos # (Auto) 0.1 (0.0-0.7) K/uL Baso # (Auto) 0.0 (0.0-0.1) K/uL Nucleated RBC % 0.0 /100WBC Nucleated RBCs # 0 K/uL Sodium 141 (136-145) mmol/L Potassium 3.7 (3.5-5.1) mmol/L Chloride 105 (98-107) mmol/L Carbon Dioxide 25.3 (21.0-32.0) mmol/L BUN 17 (7.0-18.0) mg/dL Creatinine 0.7 (0.6-1.0) mg/dL Est Cr Clr Drug Dosing 96.32 mL/min Estimated GFR (MDRD) > 60.0 ml/min Glucose 97 (74-106) mg/dL Calcium 8.3 L (8.5-10.1) mg/dL Total Bilirubin 0.1 L (0.2-1.0) mg/dL AST 23 (15-37) IU/L ALT 29 (14-63) IU/L Alkaline Phosphatase 79 (46-116) U/L Total Protein 6.7 (6.4-8.2) g/dL Albumin 3.2 L (3.4-5.0) g/dL Globulin 3.5 (2.6-4.0) g/dL Albumin/Globulin Ratio 0.9 (0.9-1.6) HCG, Qual NEGATIVE (NEG) 07/09/19 07/09/19 Range/Units 05:23 05:23 WBC 7.01 (4.0-11.0) K/uL RBC 3.80 L (4.30-5.90) M/uL Hgb 10.7 L (12.0-16.0) g/dL Hct 33.5 L (36.0-46.0) % MCV 88.2 (80.0-98.0) fL MCH 28.2 (27.0-32.0) pg MCHC 31.9 (31.0-37.0) g/dL RDW Std Deviation 47.7 (28.0-62.0) fl RDW Coeff of Brenda 15 (11.0-15.0) % Plt Count 317 (150-400) K/uL MPV 9.40 (7.40-12.00) fL Neut % (Auto) 51.6 (48.0-80.0) % Lymph % (Auto) 39.2 (16.0-40.0) % [place] % (Auto) 5.8 (0.0-15.0) % Eos % (Auto) 3.1 (0.0-7.0) % Baso % (Auto) 0.3 (0.0-1.5) % Neut # (Auto) 3.6 (1.4-5.7) K/uL Lymph # (Auto) 2.8 H (0.6-2.4) K/uL [place] # (Auto) 0.4 (0.0-0.8) K/uL Eos # (Auto) 0.2 (0.0-0.7) K/uL Baso # (Auto) 0.0 (0.0-0.1) K/uL Nucleated RBC % 0.0 /100WBC Nucleated RBCs # 0 K/uL Sodium 139 (136-145) mmol/L Potassium 3.5 (3.5-5.1) mmol/L Chloride 107 (98-107) mmol/L Carbon Dioxide 26.7 (21.0-32.0) mmol/L BUN 12 (7.0-18.0) mg/dL Creatinine 0.6 (0.6-1.0) mg/dL Est Cr Clr Drug Dosing 112.38 mL/min Estimated GFR (MDRD) > 60.0 ml/min Glucose 95 (74-106) mg/dL Calcium 7.6 L (8.5-10.1) mg/dL Total Bilirubin (0.2-1.0) mg/dL AST (15-37) IU/L ALT (14-63) IU/L Alkaline Phosphatase (46-116) U/L Total Protein (6.4-8.2) g/dL Albumin (3.4-5.0) g/dL Globulin (2.6-4.0) g/dL Albumin/Globulin Ratio (0.9-1.6) HCG, Qual (NEG) Med Orders - Current: Current Medications Acetaminophen (Tylenol) 650 mg PO Q4H PRN PRN Reason: Pain (Mild 1-3)/fever Last Admin: 07/08/19 14:29 Dose: 650 mg Vancomycin HCl 1.25 gm/ Sodium (Chloride) 250 mls @ 125 mls/hr IV Q8H NUNU Last Admin: 07/09/19 05:02 Dose: 250 mls/hr Sodium Chloride (Normal Saline) 1,000 mls @ 125 mls/hr IV ASDIRECTED NUNU Last Admin: 07/09/19 03:06 Dose: 125 mls/hr Ondansetron HCl (Zofran) 4 mg IVPUSH Q4H PRN PRN Reason: Nausea Oxycodone HCl (Oxycodone) 5 mg PO Q4H PRN PRN Reason: Pain (moderate 4-6) Last Admin: 07/09/19 07:58 Dose: 5 mg Sodium Chloride (Saline Flush) 2.5 ml FLUSH ASDIRECTED PRN PRN Reason: Keep Vein Open Vancomycin HCl (Pharmacy To Dose - Vancomycin) 1 dose .XX ASDIRECTED NUNU Discontinued Medications Gadobenate Dimeglumine (Multihance) 20 ml IVPUSH ONETIME STA Stop: 07/08/19 15:54 Last Admin: 07/08/19 16:16 Dose: 20 ml - Exam General: Alert, Oriented, Cooperative Lungs: Clear to Auscultation, Normal Respiratory Effort Cardiovascular: Regular Rate, Regular Rhythm GI/Abdominal Exam: Normal Bowel Sounds, Soft, Non-Tender, No Distention Extremities: No Pedal Edema Wound/Incisions: Erythema Improving Neurological: No New Focal Deficit Psy/Mental Status: Alert, Normal Affect, Normal Mood Sepsis Event Note - Evaluation Sepsis Screening Result: No Definite Risk - Focused Exam Vital Signs: Vital Signs Temp Pulse Resp BP Pulse Ox 07/09/19 08:00 98.1 F 64 20 110/47 L 97 07/09/19 03:49 97.6 F 68 16 120/58 L 98 07/08/19 23:48 97.1 F 76 18 129/76 98 Date Exam was Performed: 07/09/19 Time Exam was Performed: 11:10 - Problem List Review Problem List Initiated/Reviewed/Updated: Yes - My Orders Last 24 Hours: My Active Orders 07/08/19 12:04 Consult to Physician [CONS] Routine 07/08/19 12:06 Notify Provider Consults [RC] ASDIRECTED 07/08/19 15:00 Sodium Chloride 0.9% [Normal Saline] 1,000 ml IV ASDIRECTED 07/10/19 05:11 BASIC METABOLIC PANEL,BMP [CHEM] AM CBC WITH AUTO DIFF [HEME] AM 07/11/19 05:11 BASIC METABOLIC PANEL,BMP [CHEM] AM CBC WITH AUTO DIFF [HEME] AM - Plan Plan:: 1. Foot ulcer with cellulitis- Improving. Wound culture and blood cultures pending. MRI of foot and leg did not show osteomyelitis. Continue Vancomycin and IVF. Dr. Armas, podiatry, plans to take patient to OR today for debridement. Dr. Armas doing dressing changes. Now NPO.
--- NOTE | 2019-07-09 11:31 | PCM.PREANE ---
Preanesthetic Assessment - Anesthesia/Transfusion/Family Hx Anesthesia History: Prior Anesthesia Without Reaction Family History of Anesthesia Reaction: No Transfusion History: No Prior Transfusion(s) Intubation History: Unknown - Review of Systems General: No Symptoms Pulmonary: No Symptoms Cardiovascular: No Symptoms Gastrointestinal: No Symptoms Neurological: No Symptoms Other: Reports: None - Physical Assessment Vital Signs: Last Vital Signs Temp 36.7 C 07/09/19 08:00 Pulse 64 07/09/19 08:00 Resp 20 07/09/19 08:00 BP 110/47 L 07/09/19 08:00 Pulse Ox 97 07/09/19 08:00 Height: 5 ft 2 in Weight: 104.326 kg ASA Class: 2E Mental Status: Alert & Oriented x3 Airway Class: Mallampati = 2 Dentition: Reports: Normal Dentition Thyro-Mental Finger Breadths: 3 Mouth Opening Finger Breadths: 2 (very small mouth) ROM/Head Extension: Full Lungs: Clear to Auscultation, Normal Respiratory Effort Cardiovascular: Regular Rate, Regular Rhythm - Lab Values: Laboratory Last Values WBC 7.01 K/uL (4.0-11.0) 07/09/19 05:23 RBC 3.80 M/uL (4.30-5.90) L 07/09/19 05:23 Hgb 10.7 g/dL (12.0-16.0) L 07/09/19 05:23 Hct 33.5 % (36.0-46.0) L 07/09/19 05:23 MCV 88.2 fL (80.0-98.0) 07/09/19 05:23 MCH 28.2 pg (27.0-32.0) 07/09/19 05:23 MCHC 31.9 g/dL (31.0-37.0) 07/09/19 05:23 RDW Std Deviation 47.7 fl (28.0-62.0) 07/09/19 05:23 RDW Coeff of Brenda 15 % (11.0-15.0) 07/09/19 05:23 Plt Count 317 K/uL (150-400) 07/09/19 05:23 MPV 9.40 fL (7.40-12.00) 07/09/19 05:23 Neut % (Auto) 51.6 % (48.0-80.0) 07/09/19 05:23 Lymph % (Auto) 39.2 % (16.0-40.0) 07/09/19 05:23 [place] % (Auto) 5.8 % (0.0-15.0) 07/09/19 05:23 Eos % (Auto) 3.1 % (0.0-7.0) 07/09/19 05:23 Baso % (Auto) 0.3 % (0.0-1.5) 07/09/19 05:23 Neut # (Auto) 3.6 K/uL (1.4-5.7) 07/09/19 05:23 Lymph # (Auto) 2.8 K/uL (0.6-2.4) H 07/09/19 05:23 [place] # (Auto) 0.4 K/uL (0.0-0.8) 07/09/19 05:23 Eos # (Auto) 0.2 K/uL (0.0-0.7) 07/09/19 05:23 Baso # (Auto) 0.0 K/uL (0.0-0.1) 07/09/19 05:23 Nucleated RBC % 0.0 /100WBC 07/09/19 05:23 Nucleated RBCs # 0 K/uL 07/09/19 05:23 Sodium 139 mmol/L (136-145) 07/09/19 05:23 Potassium 3.5 mmol/L (3.5-5.1) 07/09/19 05:23 Chloride 107 mmol/L (98-107) 07/09/19 05:23 Carbon Dioxide 26.7 mmol/L (21.0-32.0) 07/09/19 05:23 BUN 12 mg/dL (7.0-18.0) 07/09/19 05:23 Creatinine 0.6 mg/dL (0.6-1.0) 07/09/19 05:23 Est Cr Clr Drug Dosing 112.38 mL/min 07/09/19 05:23 Estimated GFR (MDRD) > 60.0 ml/min 07/09/19 05:23 Glucose 95 mg/dL (74-106) 07/09/19 05:23 Calcium 7.6 mg/dL (8.5-10.1) L 07/09/19 05:23 Total Bilirubin 0.1 mg/dL (0.2-1.0) L 07/08/19 10:44 AST 23 IU/L (15-37) 07/08/19 10:44 ALT 29 IU/L (14-63) 07/08/19 10:44 Alkaline Phosphatase 79 U/L (46-116) 07/08/19 10:44 Total Protein 6.7 g/dL (6.4-8.2) 07/08/19 10:44 Albumin 3.2 g/dL (3.4-5.0) L 07/08/19 10:44 Globulin 3.5 g/dL (2.6-4.0) 07/08/19 10:44 Albumin/Globulin Ratio 0.9 (0.9-1.6) 07/08/19 10:44 HCG, Qual NEGATIVE (NEG) 07/08/19 10:44 - Allergies Allergies/Adverse Reactions: Allergies Allergy/AdvReac Type Severity Reaction Status Date / Time sumatriptan [From Imitrex] Allergy Rash Verified 07/08/19 10:05 sumatriptan succinate Allergy Other Verified 07/08/19 10:05 [From Imitrex] - Blood Blood Available: No - Anesthesia Plan Pre-Op Medication Ordered: None - Acknowledgements Anesthesia Type Planned: General Anesthesia Pt an Appropriate Candidate for the Planned Anesthesia: Yes Alternatives and Risks of Anesthesia Discussed w Pt/Guardian: Yes Pt/Guardian Understands and Agrees with Anesthesia Plan: Yes PreAnesthesia Questionnaire - Past Health History Medical/Surgical History: Denies Medical/Surgical History HEENT History: Reports: Other (See Below) Other HEENT History: wears glasses Cardiovascular History: Reports: None Respiratory History: Reports: None Gastrointestinal History: Reports: None Genitourinary History: Reports: None 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: Musculoskeletal History: Reports: Other (See Below) Other Musculoskeletal History: broken right foot Neurological History: Reports: None Psychiatric History: Reports: None Endocrine/Metabolic History: Reports: None (BMI 42.1) Hematologic History: Reports: None Immunologic History: Reports: None Oncologic (Cancer) History: Reports: None Dermatologic History: Reports: None - Infectious Disease History Infectious Disease History: Reports: None - Past Surgical History HEENT Surgical History: Reports: Eye Surgery GI Surgical History: Reports: Appendectomy - SUBSTANCE USE Smoking Status *Q: Current Every Day Smoker Recreational Drug Use History: Yes Recreational Drug Type: Reports: Marijuana/Hashish - HOME MEDS Home Medications: Home Meds . [No Known Home Meds] 07/08/19 [History] - CURRENT (IN HOUSE) MEDS Current Meds: Current Medications Acetaminophen (Tylenol) 650 mg PO Q4H PRN PRN Reason: Pain (Mild 1-3)/fever Last Admin: 07/08/19 14:29 Dose: 650 mg Vancomycin HCl 1.25 gm/ Sodium (Chloride) 250 mls @ 125 mls/hr IV Q8H NUNU Last Admin: 07/09/19 05:02 Dose: 250 mls/hr Sodium Chloride (Normal Saline) 1,000 mls @ 125 mls/hr IV ASDIRECTED NUNU Last Admin: 07/09/19 03:06 Dose: 125 mls/hr Ondansetron HCl (Zofran) 4 mg IVPUSH Q4H PRN PRN Reason: Nausea Oxycodone HCl (Oxycodone) 5 mg PO Q4H PRN PRN Reason: Pain (moderate 4-6) Last Admin: 07/09/19 07:58 Dose: 5 mg Sodium Chloride (Saline Flush) 2.5 ml FLUSH ASDIRECTED PRN PRN Reason: Keep Vein Open Vancomycin HCl (Pharmacy To Dose - Vancomycin) 1 dose .XX ASDIRECTED NUNU Discontinued Medications Gadobenate Dimeglumine (Multihance) 20 ml IVPUSH ONETIME STA Stop: 07/08/19 15:54 Last Admin: 07/08/19 16:16 Dose: 20 ml
[2019-07-09] MEDS ORDERED: Ondansetron 4 MG/2 ML SDV ONE (14:40)
[2019-07-09] MEDS ORDERED: Midazolam 1 MG/ML 2 ML SDV ONE (14:41)
[2019-07-09] MEDS ORDERED: Lidocaine 2% 5 ML SDV ONE (14:41)
[2019-07-09] MEDS ORDERED: fentaNYL 100 MCG/2 ML SDV ONE (14:41)
[2019-07-09] MEDS ORDERED: Propofol 200 MG/20 ML SDV ONE ×2 (14:41→17:27)
[2019-07-09] MEDS ORDERED: ceFAZolin 1 GM Vial ONE (15:40)
[2019-07-09] MEDS ORDERED: Bupivacaine 0.5% 30 ML SDV ONE (15:40)
[2019-07-09] MEDS ORDERED: Bupivacaine 0.5% 10 ML SDV ONE (15:42)
--- NOTE | 2019-07-09 18:04 | PCM.POSTAN ---
POST ANESTHESIA ASSESSMENT - MENTAL STATUS Mental Status: Alert - VITAL SIGNS Vital Signs: Last Vital Signs Temp 36.2 C 07/09/19 17:46 Pulse 52 L 07/09/19 17:57 Resp 10 L 07/09/19 17:57 BP 129/58 L 07/09/19 17:57 Pulse Ox 99 07/09/19 17:57 - RESPIRATORY Respiratory Status: Respiratory Rate WNL - CARDIOVASCULAR CV Status: Pulse Rate WNL - GASTROINTESTINAL GI Status: No Symptoms - PAIN Pain Score: 0 - POST OP HYDRATION Hydration Status: Adequate & Stable - OBSERVATIONS Free Text/Narrative:: Doing well. SAB regressing. VSS. Ready for transfer back to floor.
--- NOTE | 2019-07-09 21:49 | PCM.OPNOTE ---
- General Post-Op/Procedure Note Date of Surgery/Procedure: 07/09/19 Operative Procedure(s): debridement of ulcer left foot Findings: consistent with diagnosis Pre Op Diagnosis: ulcer left foot Post-Op Diagnosis: ulcer left foot Anesthesia Technique: Spinal Primary Surgeon: Leo Armas Anesthesia Provider: Shorty Lepe Pathology: none EBL in mLs: 40 Complications: none Condition: Good Free Text/Narrative:: Intake & Output 07/09/19 07/09/19 07/09/19 06:59 14:59 22:59 Intake Total 500 1250 Output Total 600 Balance -100 1250 materials: half inch iodoform packing
--- NOTE | 2019-07-10 01:17 | OR ---
SURGEON: Leo Armas DPM DATE OF PROCEDURE: 07/09/2019 PRIMARY SURGEON: Leo Armas DPM. PREOPERATIVE DIAGNOSIS: Ulcer, left foot. POSTOPERATIVE DIAGNOSIS: Ulcer, left foot. OPERATIVE PROCEDURE: Debridement of ulcer, left foot. ANESTHESIA: Spinal. HEMOSTASIS: None. ESTIMATED BLOOD LOSS: 40 mL. PATHOLOGY: None. CONDITION: The patient tolerated the procedure and anesthesia well. There were no complications noted. JUSTIFICATION FOR THE PROCEDURE: The patient presented as a new patient to my office on July 06, 2019, with an extremely painful and extremely large abscess on the plantar left heel. She underwent incision and drainage of this abscess in my office. I estimate approximately 50 mL of purulent drainage was removed from her, and she was flushed with saline and placed on antibiotics, which she did not begin to take for over 24 hours, at which time she had contacted me still not having begun her antibiotics with report of ascending redness representing ascending cellulitis on her posterior aspect of her left leg. I confirmed this with FaceTime video conversation with the patient and eventually determined that she needed to be admitted and undergo MRI of the left lower extremity. Then coordinating with Dr. Arnold, this was done. The patient presented as planned at 9:00 a.m. yesterday morning, July 08, 2019. She was admitted and underwent MRI, which did not indicate that the infection had reached bone and there was no indication of osteomyelitis. Despite the significant amount of drainage removed from the foot when the abscess was opened up in my office on July 05, there is a central area of approximately 2 to 3 cm in diameter where the patient is extremely painful to the touch. There is fluid palpated underneath. It is clear that further debridement and drainage needs to be done. There is also necrotic tissue. Consented for debridement of the ulcer in the operating room today. The patient understands, no guarantees are expressed or implied, and all her questions have been answered and her written consent has been obtained. PROCEDURE IN DETAIL: The patient was brought to the operating room and placed on the operating table in a supine position. Aseptic scrub and drape were performed of the patient's left lower extremity following administration of spinal anesthesia. Time-out was performed and correct surgical site was confirmed as well as the procedure. Procedure began by trimming necrotic and devitalized skin and soft tissue with a #15 blade on a #3 handle. An incision made completing the partial separation that existed in the ulcerated area and allowing for easier probing with a curved hemostat. Further it was found a minimal amount of purulent drainage was included in the otherwise serosanguineous drainage. Necrotic tissue was excised using a pickup and blade. The wound was flushed with normal sterile saline. A total of 3 L of pulse lavage normal sterile saline was used to flush out the area. Further probing was conducted and once all identifiable purulent drainage was removed, 1/2 inch iodoform packing was placed into the wound. The wound was not closed, no sutures were used. It was covered with nonadherent gauze, 4x4 fluff gauze, Kerlix roll, and secured with an Radhames bandage. The patient tolerated the procedure and anesthesia well. Packing the wound, 10 mL of 0.5% Marcaine plain was infiltrated into the tissues within the surgical site. The patient was then transferred back to her room for recovery and will remain in-house overnight. Swab culture was taken at the beginning of the procedure for aerobic, anaerobic, and Gram stain. If stable tomorrow, however, return on an outpatient basis to the OR cannot be ruled out and if any complications develop, readmission may be required. ALEXY AMADOR /[id number] [place]
[2019-07-10] MEDS: oxyCODONE 5 MG Tab PO PRN ×2 (01:46→05:55)
[2019-07-10] MEDS: Sodium Chloride 0.9% 1,000 ML IV SCH (03:19)
[2019-07-10 06:17] LABS: BLOOD UREA NITROGEN,BUN 5 mg/dL (7.0-18.0); CARBON DIOXIDE,CO2 26.6 mmol/L (21.0-32.0); CHLORIDE,CL 105 mmol/L (98-107); GLUCOSE RANDOM 94 mg/dL (74-106); POTASSIUM,K 3.6 mmol/L (3.5-5.1); SODIUM,NA 139 mmol/L (136-145)
--- NOTE | 2019-07-10 07:17 | PCM48HPAN ---
Post Anesthesia Note - EVALUATION WITHIN 48HRS OF ANESTHETIC Vital Signs in Normal Range: Yes Patient Participated in Evaluation: Yes Respiratory Function Stable: Yes Airway Patent: Yes Cardiovascular Function Stable: Yes Hydration Status Stable: Yes Pain Control Satisfactory: Yes (1-slight soreness.) Nausea and Vomiting Control Satisfactory: Yes Mental Status Recovered: Yes Vital Signs: Last Vital Signs Temp 36.5 C 07/10/19 04:00 Pulse 82 07/10/19 04:00 Resp 16 07/10/19 04:00 BP 132/82 07/10/19 04:00 Pulse Ox 96 07/10/19 04:00 - COMMENTS/OBSERVATIONS Free Text/Narrative:: Doing well.
--- NOTE | 2019-07-10 08:24 | PN ---
The patient is a 24-year-old female who was admitted on the morning of July 08, 2019, yesterday, for left foot ulcer with cellulitis. She was last seen by me on July 05, in my office. This was her first visit as a patient to my office, at which time, I drained a large abscess filled with purulent drainage from her left heel. The planned procedure is debridement of ulcer, left foot. The patient has allergies to sumatriptan from Imitrex and sumatriptan succinate. No home medications. No past medical history. Does have a recent history of a broken right foot. LABORATORY DATA: White blood cell 7.01, red blood cell 3.80, hemoglobin 10.7, hematocrit 33.5, platelets 317,000. Sodium 139, potassium 3.5, chloride 107, carbon dioxide 26.7, BUN 12, creatinine 0.6, glucose 95. Albumin is low at 3.2. The patient has been cleared for surgery by Dr. Arnold, and all of the patient's questions have been asked and answered. The patient has consented in writing for debridement of ulcer on the left foot in the operating room today. No guarantees have been expressed or implied. LAEXY / MARJORIE /[id number]
--- NOTE | 2019-07-10 11:37 | PCM.DCSUM1 ---
<Juany Souza - Last Filed: 07/10/19 11:45> Discharge Summary - Hospital Course HPI Initial Comments: Admission Date: 07/08/19 Discharge Date: 07/10/19 Admission Diagnosis: 1. Left foot cellulitis Discharge Diagnosis: 1. Left foot ulcer and cellulitis s/p debridement Procedures: Debridement Consults: Dr. Armas- podiatry Hospital Course: The patient is a 24 year old female who was directly admitted from Dr. Armas's clinic for left foot cellulitis. Dr. Armas and drained an abscess from the area per the patient the day before admission. She was admitted to the medical floor. Lab work revealed no leukocytosis or abn with CMP. MRI of the foot and leg found no evidence of osteomyelitis. She was started on IV Vancomycin. Dr. Armas was consulted and took the patient to the OR for debridement of the ulcer. Her first wound culture grew out streptococcus Agalactiae Group B. Dr. Armas also obtained a deeper culture in the OR. It was growing gram positive cocci in pairs. By day of discharge, her cellulitis had improved and she was requesting discharge. Disposition: Home Discharge Condition: vitals stable, tolerating oral diet, ambulating without difficulty, symptom improvement Discharge Instructions: regular diet as tolerated, non weight bearing, take medications as prescribed. Symptoms to report to physician include fever/chills , chest pain, shortness of breath, abdominal pain, erythema, drainage/discharge , or not improving as expected. Discharge Medications: Clindamycin HCl 450 mg PO TID oxyCODONE 5 mg PO Q6HR Follow-up: 1. PCP 2. Dr. Armas podiatry - Discharge Data Discharge Date: 07/10/19 Discharge Disposition: Home, Self-Care 01 Condition: Good - Referral to Home Health Primary Care Physician: Leo Armas DPM - Patient Summary/Data Operative Procedure(s) Performed: debridement of ulcer left foot Consults: Consultations 07/08/19 10:41 Consult to Physician [CONS] Routine 07/08/19 12:04 Consult to Physician [CONS] Routine - Patient Instructions Diet: Usual Diet as Tolerated Activity: Non Weight Bearing Notify Provider of: Fever, Increased Pain, Swelling and Redness, Drainage, Nausea and/or Vomiting Other/Special Instructions: Additional symptoms include chest pain, shortness of breath, or abdominal pain. Follow up with Dr. Armas on 07/11/19 at 12 PM. Bring packing- iodoform with you. Do not put weight on your foot. - Discharge Plan *PRESCRIPTION DRUG MONITORING PROGRAM REVIEWED*: No *COPY OF PRESCRIPTION DRUG MONITORING REPORT IN PATIENT ROBERT: No Prescriptions/Med Rec: oxyCODONE 5 mg PO Q6HR #8 tab Clindamycin HCl 450 mg PO TID #72 capsule Home Medications: Home Meds Clindamycin HCl 450 mg PO TID #72 capsule 07/10/19 [Rx] oxyCODONE 5 mg PO Q6HR #8 tab 07/10/19 [Rx] Patient Handouts: Oxycodone tablets or capsules, Clindamycin capsules, Cellulitis, Adult, [id number], Incision and Drainage, Care After Referrals: [facility] [employer] [Nurse Practitioner] - 07/15/19 10:30 am Leo Armas, DPM [Primary Care Provider] - 07/11/19 12:00 pm - Discharge Summary/Plan Comment DC Time >30 min.: No - Patient Data Vitals - Most Recent: Last Vital Signs Temp 97.8 F 07/10/19 08:00 Pulse 73 07/10/19 08:00 Resp 18 07/10/19 08:00 BP 128/58 L 07/10/19 08:00 Pulse Ox 96 07/10/19 08:00 Weight - Most Recent: 104.326 kg I&O - Last 24 hours: Intake & Output 07/09/19 07/10/19 07/10/19 22:59 06:59 14:59 Intake Total 1250 1892 250 Output Total 2900 Balance 1250 -1008 250 Lab Results - Last 24 hrs: Laboratory Results - last 24 hr 07/09/19 07/09/19 07/10/19 Range/Units 11:08 12:15 05:12 WBC 6.36 (4.0-11.0) K/uL RBC 3.82 L (4.30-5.90) M/uL Hgb 10.7 L (12.0-16.0) g/dL Hct 33.5 L (36.0-46.0) % MCV 87.7 (80.0-98.0) fL MCH 28.0 (27.0-32.0) pg MCHC 31.9 (31.0-37.0) g/dL RDW Std Deviation 45.7 (28.0-62.0) fl RDW Coeff of Brenda 14 (11.0-15.0) % Plt Count 311 (150-400) K/uL MPV 9.40 (7.40-12.00) fL Neut % (Auto) 61.1 (48.0-80.0) % Lymph % (Auto) 32.1 (16.0-40.0) % [place] % (Auto) 5.0 (0.0-15.0) % Eos % (Auto) 1.6 (0.0-7.0) % Baso % (Auto) 0.2 (0.0-1.5) % Neut # (Auto) 3.9 (1.4-5.7) K/uL Lymph # (Auto) 2.0 (0.6-2.4) K/uL [place] # (Auto) 0.3 (0.0-0.8) K/uL Eos # (Auto) 0.1 (0.0-0.7) K/uL Baso # (Auto) 0.0 (0.0-0.1) K/uL Nucleated RBC % 0.0 /100WBC Nucleated RBCs # 0 K/uL Sodium (136-145) mmol/L Potassium (3.5-5.1) mmol/L Chloride (98-107) mmol/L Carbon Dioxide (21.0-32.0) mmol/L BUN (7.0-18.0) mg/dL Creatinine (0.6-1.0) mg/dL Est Cr Clr Drug Dosing mL/min Estimated GFR (MDRD) ml/min Glucose (74-106) mg/dL Calcium (8.5-10.1) mg/dL Vancomycin Trough 11.7 H (5.0-10.0) ug/mL SARS-CoV-2 RNA (RT-PCR) NEGATIVE (NEGATIVE) 07/10/19 Range/Units 05:12 WBC (4.0-11.0) K/uL RBC (4.30-5.90) M/uL Hgb (12.0-16.0) g/dL Hct (36.0-46.0) % MCV (80.0-98.0) fL MCH (27.0-32.0) pg MCHC (31.0-37.0) g/dL RDW Std Deviation (28.0-62.0) fl RDW Coeff of Brenda (11.0-15.0) % Plt Count (150-400) K/uL MPV (7.40-12.00) fL Neut % (Auto) (48.0-80.0) % Lymph % (Auto) (16.0-40.0) % [place] % (Auto) (0.0-15.0) % Eos % (Auto) (0.0-7.0) % Baso % (Auto) (0.0-1.5) % Neut # (Auto) (1.4-5.7) K/uL Lymph # (Auto) (0.6-2.4) K/uL [place] # (Auto) (0.0-0.8) K/uL Eos # (Auto) (0.0-0.7) K/uL Baso # (Auto) (0.0-0.1) K/uL Nucleated RBC % /100WBC Nucleated RBCs # K/uL Sodium 139 (136-145) mmol/L Potassium 3.6 (3.5-5.1) mmol/L Chloride 105 (98-107) mmol/L Carbon Dioxide 26.6 (21.0-32.0) mmol/L BUN 5 L (7.0-18.0) mg/dL Creatinine 0.6 (0.6-1.0) mg/dL Est Cr Clr Drug Dosing 112.38 mL/min Estimated GFR (MDRD) > 60.0 ml/min Glucose 94 (74-106) mg/dL Calcium 8.0 L (8.5-10.1) mg/dL Vancomycin Trough (5.0-10.0) ug/mL SARS-CoV-2 RNA (RT-PCR) (NEGATIVE) MICHELINE Results - Last 24 hrs: Microbiology 07/09/19 17:19 Gram Stain - Final Foot, Left Wound Culture - Preliminary 07/08/19 11:40 Wound Culture - Final Foot, Left Streptococcus Agalactiae Grp B Skin Virginie 07/08/19 11:00 Aerobic Blood Culture - Preliminary Blood - Venous - Lab Draw NO GROWTH AFTER 1 DAY Anaerobic Blood Culture - Preliminary NO GROWTH AFTER 1 DAY 07/08/19 10:44 Aerobic Blood Culture - Preliminary Blood - Venous NO GROWTH AFTER 1 DAY Anaerobic Blood Culture - Preliminary NO GROWTH AFTER 1 DAY Med Orders - Current: Current Medications Acetaminophen (Tylenol) 650 mg PO Q4H PRN PRN Reason: Pain (Mild 1-3)/fever Last Admin: 07/08/19 14:29 Dose: 650 mg Vancomycin HCl 1.25 gm/ Sodium (Chloride) 250 mls @ 125 mls/hr IV Q8H NUNU Last Admin: 07/10/19 04:41 Dose: 125 mls/hr Sodium Chloride (Normal Saline) 1,000 mls @ 125 mls/hr IV ASDIRECTED [facility] Last Admin: 07/10/19 03:19 Dose: 125 mls/hr Ondansetron HCl (Zofran) 4 mg IVPUSH Q4H PRN PRN Reason: Nausea Oxycodone HCl (Oxycodone) 5 mg PO Q4H PRN PRN Reason: Pain (moderate 4-6) Last Admin: 07/10/19 05:55 Dose: 5 mg Sodium Chloride (Saline Flush) 2.5 ml FLUSH ASDIRECTED PRN PRN Reason: Keep Vein Open Vancomycin HCl (Pharmacy To Dose - Vancomycin) 1 dose .XX ASDIRECTED [facility] Discontinued Medications Bupivacaine HCl (Marcaine 0.5%) Confirm Administered Dose 30 ml .ROUTE .STK-MED ONE Stop: 07/09/19 15:41 Bupivacaine HCl (Sensorcaine-Mpf 0.5%) Confirm Administered Dose 10 ml .ROUTE .STK-MED ONE Stop: 07/09/19 15:43 Cefazolin Sodium (Ancef) Confirm Administered Dose 1 gm .ROUTE .STK-MED ONE Stop: 07/09/19 15:41 Fentanyl (Sublimaze) Confirm Administered Dose 100 mcg .ROUTE .STK-MED ONE Stop: 07/09/19 14:42 Gadobenate Dimeglumine (Multihance) 20 ml IVPUSH ONETIME STA Stop: 07/08/19 15:54 Last Admin: 07/08/19 16:16 Dose: 20 ml Lidocaine (Xylocaine-Mpf 2%) Confirm Administered Dose 5 ml .ROUTE .STK-MED ONE Stop: 07/09/19 14:42 Midazolam HCl (Versed 1 Mg/Ml) Confirm Administered Dose 2 mg .ROUTE .STK-MED ONE Stop: 07/09/19 14:42 Ondansetron HCl (Zofran) Confirm Administered Dose 4 mg .ROUTE .STK-MED ONE Stop: 07/09/19 14:41 Propofol (Diprivan 20 Ml) Confirm Administered Dose 200 mg .ROUTE .STK-MED ONE Stop: 07/09/19 14:42 Propofol (Diprivan 20 Ml) Confirm Administered Dose 200 mg .ROUTE .STK-MED ONE Stop: 07/09/19 17:28 <David Read - Last Filed: 07/10/19 23:04> Discharge Summary - Referral to [facility] Primary Care Physician: Leo Armas DPM - Patient Summary/Data Consults: Consultations 07/08/19 10:41 Consult to Physician [CONS] Routine 07/08/19 12:04 Consult to Physician [CONS] Routine - Patient Data Vitals - Most Recent: Last Vital Signs Temp 36.5 C 07/10/19 12:00 Pulse 86 07/10/19 12:00 Resp 18 07/10/19 12:00 BP 134/77 07/10/19 12:00 Pulse Ox 97 07/10/19 12:00 I&O - Last 24 hours: Intake & Output 07/10/19 07/10/19 07/11/19 14:59 22:59 06:59 Intake Total 250 Balance 250 Lab Results - Last 24 hrs: Laboratory Results - last 24 hr 07/10/19 07/10/19 Range/Units 05:12 05:12 WBC 6.36 (4.0-11.0) K/uL RBC 3.82 L (4.30-5.90) M/uL Hgb 10.7 L (12.0-16.0) g/dL Hct 33.5 L (36.0-46.0) % MCV 87.7 (80.0-98.0) fL MCH 28.0 (27.0-32.0) pg MCHC 31.9 (31.0-37.0) g/dL RDW Std Deviation 45.7 (28.0-62.0) fl RDW Coeff of Brenda 14 (11.0-15.0) % Plt Count 311 (150-400) K/uL MPV 9.40 (7.40-12.00) fL Neut % (Auto) 61.1 (48.0-80.0) % Lymph % (Auto) 32.1 (16.0-40.0) % [place] % (Auto) 5.0 (0.0-15.0) % Eos % (Auto) 1.6 (0.0-7.0) % Baso % (Auto) 0.2 (0.0-1.5) % Neut # (Auto) 3.9 (1.4-5.7) K/uL Lymph # (Auto) 2.0 (0.6-2.4) K/uL [place] # (Auto) 0.3 (0.0-0.8) K/uL Eos # (Auto) 0.1 (0.0-0.7) K/uL Baso # (Auto) 0.0 (0.0-0.1) K/uL Nucleated RBC % 0.0 /100WBC Nucleated RBCs # 0 K/uL Sodium 139 (136-145) mmol/L Potassium 3.6 (3.5-5.1) mmol/L Chloride 105 (98-107) mmol/L Carbon Dioxide 26.6 (21.0-32.0) mmol/L BUN 5 L (7.0-18.0) mg/dL Creatinine 0.6 (0.6-1.0) mg/dL Est Cr Clr Drug Dosing 112.38 mL/min Estimated GFR (MDRD) > 60.0 ml/min Glucose 94 (74-106) mg/dL Calcium 8.0 L (8.5-10.1) mg/dL MICHELINE Results - Last 24 hrs: Microbiology 07/09/19 17:19 Gram Stain - Final Foot, Left Wound Culture - Preliminary 07/08/19 11:00 Aerobic Blood Culture - Preliminary Blood - Venous - Lab Draw NO GROWTH AFTER 2 DAYS Anaerobic Blood Culture - Preliminary NO GROWTH AFTER 2 DAYS 07/08/19 10:44 Aerobic Blood Culture - Preliminary Blood - Venous NO GROWTH AFTER 2 DAYS Anaerobic Blood Culture - Preliminary NO GROWTH AFTER 2 DAYS 07/08/19 11:40 Wound Culture - Final Foot, Left Streptococcus Agalactiae Grp B Skin Virginie Med Orders - Current: Current Medications Discontinued Medications Acetaminophen (Tylenol) 650 mg PO Q4H PRN PRN Reason: Pain (Mild 1-3)/fever Last Admin: 07/08/19 14:29 Dose: 650 mg Bupivacaine HCl (Marcaine 0.5%) Confirm Administered Dose 30 ml .ROUTE .STK-MED ONE Stop: 07/09/19 15:41 Bupivacaine HCl (Sensorcaine-Mpf 0.5%) Confirm Administered Dose 10 ml .ROUTE .STK-MED ONE Stop: 07/09/19 15:43 Cefazolin Sodium (Ancef) Confirm Administered Dose 1 gm .ROUTE .STK-MED ONE Stop: 07/09/19 15:41 Fentanyl (Sublimaze) Confirm Administered Dose 100 mcg .ROUTE .STK-MED ONE Stop: 07/09/19 14:42 Gadobenate Dimeglumine (Multihance) 20 ml IVPUSH ONETIME STA Stop: 07/08/19 15:54 Last Admin: 07/08/19 16:16 Dose: 20 ml Vancomycin HCl 1.25 gm/ Sodium (Chloride) 250 mls @ 125 mls/hr IV Q8H NUNU Last Admin: 07/10/19 12:28 Dose: 125 mls/hr Sodium Chloride (Normal Saline) 1,000 mls @ 125 mls/hr IV ASDIRECTED NUNU Last Admin: 07/10/19 03:19 Dose: 125 mls/hr Lidocaine (Xylocaine-Mpf 2%) Confirm Administered Dose 5 ml .ROUTE .STK-MED ONE Stop: 07/09/19 14:42 Midazolam HCl (Versed 1 Mg/Ml) Confirm Administered Dose 2 mg .ROUTE .STK-MED ONE Stop: 07/09/19 14:42 Ondansetron HCl (Zofran) 4 mg IVPUSH Q4H PRN PRN Reason: Nausea Ondansetron HCl (Zofran) Confirm Administered Dose 4 mg .ROUTE .STK-MED ONE Stop: 07/09/19 14:41 Oxycodone HCl (Oxycodone) 5 mg PO Q4H PRN PRN Reason: Pain (moderate 4-6) Last Admin: 07/10/19 05:55 Dose: 5 mg Propofol (Diprivan 20 Ml) Confirm Administered Dose 200 mg .ROUTE .STK-MED ONE Stop: 07/09/19 14:42 Propofol (Diprivan 20 Ml) Confirm Administered Dose 200 mg .ROUTE .STK-MED ONE Stop: 07/09/19 17:28 Sodium Chloride (Saline Flush) 2.5 ml FLUSH ASDIRECTED PRN PRN Reason: Keep Vein Open Vancomycin HCl (Pharmacy To Dose - Vancomycin) 1 dose .XX ASDIRECTED NUNU - Free Text/Narrative Note: I have seen and examined the patient. I have discussed findings and treatment plan with resident. I agree with the assessment and plan as outlined in the following note.
[2019-07-10 12:50] VITALS: BP 134/77; PULSE 86
== END 2019-07-10 16:00 | disposition home or self-care (01) | DRG 571 ==
LOC: MW.MS 09:56
PROVIDERS: ADMIT Student in an Organized Health Care Education/Training Program; ATTEND Student in an Organized Health Care Education/Training Program
PROC: 0JBR0ZZ Excision of Left Foot Subcutaneous Tissue and Fascia, Open Approach (ICD-10-PCS; principal; 2019-07-08)
DX: L03.116 Cellulitis of left lower limb (principal); I96 Gangrene, not elsewhere classified; B95.1 Streptococcus, group B, as the cause of diseases classified elsewhere; L97.522 Non-pressure chronic ulcer of other part of left foot with fat layer exposed; F17.200 Nicotine dependence, unspecified, uncomplicated; Z88.8 Allergy status to other drugs, medicaments and biological substances; Z90.49 Acquired absence of other specified parts of digestive tract
CPT/HCPCS: 36410; 36415; 73720-26-LT; 73720-LT; 80048; 80053; 80202; 84703; 85025; 87040; 87070; 87075; 87077; 87186; 87205; A9270-GY; A9577; J0690; J2001; J2250; J2405; J2704; J3010; J3370; J3490; J7030; J7050; U0002

== ENCOUNTER 2020-01-02 13:13 | Observation (INO) | payer MEDICAID ==
[2020-01-02] MEDS ORDERED: Sodium Chloride 0.9% 1,000 ML IV ONE ×2 (13:20→13:21)
[2020-01-02] MEDS ORDERED: Sodium Chloride 0.9% 2.5 ML Syringe FLUSH PRN (13:20)
[2020-01-02] MEDS ORDERED: Sodium Chloride 0.9% 10 ML Syringe FLUSH PRN (13:20)
--- NOTE | 2020-01-02 13:24 | EDM.PDOCBH ---
ED HPI GENERAL MEDICAL PROBLEM - General Chief Complaint: Behavioral/Psych Stated Complaint: EMS Time Seen by Provider: 01/02/20 13:22 Source of Information: Reports: Patient History Limitations: Reports: No Limitations - History of Present Illness INITIAL COMMENTS - FREE TEXT/NARRATIVE: HISTORY AND PHYSICAL: History of present illness: Patient is a 24-year-old female who presents to the emergency room by EMS after an intentional overdose. Law enforcement has accompanied the patient as the have had recent run-ins with her (alcohol, drug, and child related). Law enforcement states that they recently took her child away as she failed to pick him up from school on Saturday. When law enforcement arrived at the patient's house she was intoxicated and had unsuitable living conditions. The patient states she has been drinking, although states she only had "one beer" today. She reportedly took her mother's Seroquel, #30 tablets of 300 mg with intent for self-harm. Law enforcement states there were 11 tablets left in the bottle and believes there was only 30 dispensed in the bottle itself (written on bottle). Patient denies taking any other [id number] or prescribed medications. Upon arrival she is answering questions although does appear drowsy. Vital signs are stable. Denies any other form of self-harm. Review of systems: As per history of present illness and below otherwise all systems reviewed and negative. Past medical history: As per history of present illness and as reviewed below otherwise noncontr ibutory. Surgical history: As per history of present illness and as reviewed below otherwise noncontributory. Social history: See social history for further information Family history: As per history of present illness and as reviewed below otherwise noncontributory. Physical exam: General: Well developed and well nourished 24 year old white female. Drowsy, but alert and orientated x 3. Nontoxic in appearance and in no acute distress. Vital signs have been reviewed by me. Nursing notes were reviewed. HEENT: Atraumatic, normocephalic, pupils equal and reactive bilaterally, negative for conjunctival pallor or scleral icterus, mucous membranes dry/tachy, throat clear, neck supple, nontender, trachea midline. No drooling or trismus noted. No meningeal signs. No hot potato voice noted. Lungs: Clear to auscultation, breath sounds equal bilaterally, chest nontender. Normal work of breathing, no accessory muscles used. Heart: S1S2, regular rate and rhythm without overt murmur Abdomen: Soft, nondistended, nontender. Negative for masses or hepatosplenomegaly. Negative for costovertebral tenderness. Pelvis: Stable nontender. Skin: Intact, warm, dry. No lesions or rashes noted. Hematologic: No petechiae or purpra. Mucosa appropriate color and normal nail bed color and refill. Extremities: Atraumatic, moves all extremities per self without difficulty or deficits, negative for cords or calf pain. Neurovascular unremarkable. Neuro: Awake, alert, oriented. Cranial nerves II through XII unremarkable. Cerebellum unremarkable. Motor and sensory unremarkable throughout. Exam nonfocal. Psychiatric: Mood and affect are appropriate. Normal thought process. Answering questions appropriately. Notes: A note was left on scene stating "Nash, I love you. I'm sorry for everything- please forgive me. (Heart) Marry. Make sure B gets this". 1315: Poison Control was contacted about patient. Recommended no charcoal. Monitor for QTC prolongation. Patient has increased seizure risk. Recheck a Tylenol level after 4 hours. Potassium 3.0 (L). Lab work is otherwise unremarkable with the exception of positive amphetamines and methamphetamines. Negative COVID. 1305: [facility]: Spoke with Dr Norman - they do not have any medical beds available for medical clearance before psych admission. 1315: [facility], spoke with the admission roll out manager. She is requesting that the patient be medically cleared/observed at our facility before they would be willing to take patient for behavioral health. 1325: Dr Read was consulted on this case. He is agreeable to keeping this mai ent for medical management, with the intent that patient will then be transferred tomorrow for mental health evaluation. 1600: [facility]) [facility] has agreed to keep a bed available once patient is medically cleared at our facility. Would like to be called and have Jacek talk with the psychiatrist available at that time. Diagnostics: CBC, CMP, UA, HCGU, Drug Screen, Acetaminophen, Salicylate, TSH, EKG, CXR, COVID Therapeutics: IV fluids, Magnesium, Potassium Impression: Hypokalemia Polysubstance Abuse Suicidal Ideation Intentional Overdose Plan: ICU observation admission for close observation. Definitive disposition and diagnosis as appropriate pending reevaluation and review of above. - Related Data Allergies Allergy/AdvReac Type Severity Reaction Status Date / Time sumatriptan [From Imitrex] Allergy Rash Verified 01/02/20 13:18 sumatriptan succinate Allergy Other Verified 01/02/20 13:18 [From Imitrex] Home Meds: Home Meds . 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: Musculoskeletal History: Reports: Other (See Below) Other Musculoskeletal History: broken right foot Neurological History: Reports: None Psychiatric History: Reports: None Endocrine/Metabolic History: Reports: None Hematologic History: Reports: None Immunologic History: Reports: None Oncologic (Cancer) History: Reports: None Dermatologic History: Reports: None - Infectious Disease History Infectious Disease History: Reports: None - Past Surgical History HEENT Surgical History: Reports: Eye Surgery GI Surgical History: Reports: Appendectomy Social & Family History - Family History Family Medical History: No Pertinent Family History - Tobacco Use Tobacco Use Status *Q: Current Every Day Tobacco User Years of Tobacco use: 10 Packs/Tins Daily: 1 - Caffeine Use Caffeine Use: Reports: Coffee, Energy Drinks - Recreational Drug Use Recreational Drug Use: No ED ROS GENERAL - Review of Systems Review Of Systems: Comprehensive ROS is negative, except as noted in HPI. ED EXAM, BEHAVIORAL HEALTH - Physical Exam Exam: See Below (See dictation) COURSE, BEHAVIORAL HEALTH COMP - Course Vital Signs: Last Vital Signs Temp 96.5 F L 01/02/20 13:15 Pulse 101 H 01/02/20 15:00 Resp 17 01/02/20 15:00 BP 114/62 01/02/20 15:00 Pulse Ox 97 01/02/20 15:00 Orders, Labs, Meds: Active Orders 24 hr Category Date Time Status Communication Order [RC] STAT Care 01/02/20 13:22 Active EKG Documentation Completion [RC] STAT Care 01/02/20 13:20 Active ACETAMINOPHEN [CHEM] Stat Lab 01/02/20 17:00 Ordered CORONAVIRUS COVID-19 PCR PHL Stat Lab 01/02/20 14:30 Received SALICYLATE [CHEM] Stat Lab 01/02/20 17:00 Ordered Potassium Chloride 40 meq Med 01/02/20 14:30 Active Dextrose 5%-Lactated Ringers 1,000 ml IV ASDIRECTED Sodium Chloride 0.9% [Normal Saline] 1,000 ml Med 01/02/20 13:21 Active IV STAT Sodium Chloride 0.9% [Saline Flush] Med 01/02/20 13:20 Active 10 ml FLUSH ASDIRECTED PRN Sodium Chloride 0.9% [Saline Flush] Med 01/02/20 13:20 Active 2.5 ml FLUSH ASDIRECTED PRN Saline Lock Insert [OM.PC] Stat Oth 01/02/20 13:20 Ordered Medication Orders Sodium Chloride (Normal Saline) 1,000 mls @ 150 mls/hr IV STAT ONE Stop: 01/02/20 20:00 Last Admin: 01/02/20 15:52 Dose: 150 mls/hr Documented by: URSULA Potassium Chloride 40 meq/ (Dextrose/Lactated Ringer's) 1,020 mls @ 200 mls/hr IV ASDIRECTED NUNU Sodium Chloride (Saline Flush) 10 ml FLUSH ASDIRECTED PRN PRN Reason: Keep Vein Open Last Admin: 01/02/20 13:26 Dose: 10 ml Documented by: URSULA Sodium Chloride (Saline Flush) 2.5 ml FLUSH ASDIRECTED PRN PRN Reason: Keep Vein Open Last Admin: 01/02/20 13:26 Dose: 2.5 ml Documented by: URSULA Laboratory Tests 01/02/20 01/02/20 01/02/20 Range/Units 13:18 13:18 13:47 WBC 6.52 (4.0-11.0) K/uL RBC 4.37 (4.30-5.90) M/uL Hgb 12.2 (12.0-16.0) g/dL Hct 38.8 (36.0-46.0) % MCV 88.8 (80.0-98.0) fL MCH 27.9 (27.0-32.0) pg MCHC 31.4 (31.0-37.0) g/dL RDW Std Deviation 47.0 (28.0-62.0) fl RDW Coeff of Brenda 15 (11.0-15.0) % Plt Count 282 (150-400) K/uL MPV 9.80 (7.40-12.00) fL Neut % (Auto) 61.3 (48.0-80.0) % Lymph % (Auto) 32.4 (16.0-40.0) % [place] % (Auto) 5.2 (0.0-15.0) % Eos % (Auto) 0.9 (0.0-7.0) % Baso % (Auto) 0.2 (0.0-1.5) % Neut # (Auto) 4.0 (1.4-5.7) K/uL Lymph # (Auto) 2.1 (0.6-2.4) K/uL [place] # (Auto) 0.3 (0.0-0.8) K/uL Eos # (Auto) 0.1 (0.0-0.7) K/uL Baso # (Auto) 0.0 (0.0-0.1) K/uL Nucleated RBC % 0.0 /100WBC Nucleated RBCs # 0 K/uL Sodium 141 (136-145) mmol/L Potassium 3.0 L (3.5-5.1) mmol/L Chloride 106 (98-107) mmol/L Carbon Dioxide 24.3 (21.0-32.0) mmol/L BUN 11 (7.0-18.0) mg/dL Creatinine 0.8 (0.6-1.0) mg/dL Est Cr Clr Drug Dosing 103.63 mL/min Estimated GFR (MDRD) > 60.0 ml/min Glucose 96 (74-106) mg/dL Calcium 8.8 (8.5-10.1) mg/dL Total Bilirubin 0.3 (0.2-1.0) mg/dL AST 16 (15-37) IU/L ALT 32 (14-63) IU/L Alkaline Phosphatase 89 (46-116) U/L Total Protein 7.4 (6.4-8.2) g/dL Albumin 3.6 (3.4-5.0) g/dL Globulin 3.8 (2.6-4.0) g/dL Albumin/Globulin Ratio 0.9 (0.9-1.6) TSH 3rd Generation 2.54 (0.36-3.74) uIU/mL Urine Color YELLOW Urine Appearance CLEAR Urine pH 6.0 (5.0-8.0) Ur Specific [place] >= 1.030 (1.001-1.035) Urine Protein NEGATIVE (NEGATIVE) mg/dL Urine Glucose (UA) NEGATIVE (NEGATIVE) mg/dL Urine Ketones 15 H (NEGATIVE) mg/dL Urine Occult Blood NEGATIVE (NEGATIVE) Urine Nitrite NEGATIVE (NEGATIVE) Urine Bilirubin NEGATIVE (NEGATIVE) Urine Urobilinogen 1.0 (<2.0) EU/dL Ur Leukocyte Esterase NEGATIVE (NEGATIVE) Urine HCG, Qual (NEGATIVE) Salicylates 4.1 (0-20) mg/dL Urine Opiates Screen (NEGATIVE) Ur Oxycodone Screen (NEGATIVE) Urine Methadone Screen (NEGATIVE) Acetaminophen <2.0 ug/mL Ur Barbiturates Screen (NEGATIVE) Ur Phencyclidine Scrn (NEGATIVE) Ur Amphetamine Screen (NEGATIVE) U Methamphetamines Scrn (NEGATIVE) U Benzodiazepines Scrn (NEGATIVE) U Cocaine Metab Screen (NEGATIVE) U Marijuana (THC) Screen (NEGATIVE) Ethyl Alcohol 5 mg/dL SARS CoV-2 RNA Rapid SRINIVAS (NEGATIVE) 01/02/20 01/02/20 01/02/20 Range/Units 13:47 13:47 14:30 WBC (4.0-11.0) K/uL RBC (4.30-5.90) M/uL Hgb (12.0-16.0) g/dL Hct (36.0-46.0) % MCV (80.0-98.0) fL MCH (27.0-32.0) pg MCHC (31.0-37.0) g/dL RDW Std Deviation (28.0-62.0) fl RDW Coeff of Brenda (11.0-15.0) % Plt Count (150-400) K/uL MPV (7.40-12.00) fL Neut % (Auto) (48.0-80.0) % Lymph % (Auto) (16.0-40.0) % [place] % (Auto) (0.0-15.0) % Eos % (Auto) (0.0-7.0) % Baso % (Auto) (0.0-1.5) % Neut # (Auto) (1.4-5.7) K/uL Lymph # (Auto) (0.6-2.4) K/uL [place] # (Auto) (0.0-0.8) K/uL Eos # (Auto) (0.0-0.7) K/uL Baso # (Auto) (0.0-0.1) K/uL Nucleated RBC % /100WBC Nucleated RBCs # K/uL Sodium (136-145) mmol/L Potassium (3.5-5.1) mmol/L Chloride (98-107) mmol/L Carbon Dioxide (21.0-32.0) mmol/L BUN (7.0-18.0) mg/dL Creatinine (0.6-1.0) mg/dL Est Cr Clr Drug Dosing mL/min Estimated GFR (MDRD) ml/min Glucose (74-106) mg/dL Calcium (8.5-10.1) mg/dL Total Bilirubin (0.2-1.0) mg/dL AST (15-37) IU/L ALT (14-63) IU/L Alkaline Phosphatase (46-116) U/L Total Protein (6.4-8.2) g/dL Albumin (3.4-5.0) g/dL Globulin (2.6-4.0) g/dL Albumin/Globulin Ratio (0.9-1.6) TSH 3rd Generation (0.36-3.74) uIU/mL Urine Color Urine Appearance Urine pH (5.0-8.0) Ur Specific [place] (1.001-1.035) Urine Protein (NEGATIVE) mg/dL Urine Glucose (UA) (NEGATIVE) mg/dL Urine Ketones (NEGATIVE) mg/dL Urine Occult Blood (NEGATIVE) Urine Nitrite (NEGATIVE) Urine Bilirubin (NEGATIVE) Urine Urobilinogen (<2.0) EU/dL Ur Leukocyte Esterase (NEGATIVE) Urine HCG, Qual NEGATIVE (NEGATIVE) Salicylates (0-20) mg/dL Urine Opiates Screen NEGATIVE (NEGATIVE) Ur Oxycodone Screen NEGATIVE (NEGATIVE) Urine Methadone Screen NEGATIVE (NEGATIVE) Acetaminophen ug/mL Ur Barbiturates Screen NEGATIVE (NEGATIVE) Ur Phencyclidine Scrn NEGATIVE (NEGATIVE) Ur Amphetamine Screen POSITIVE (NEGATIVE) U Methamphetamines Scrn POSITIVE (NEGATIVE) U Benzodiazepines Scrn NEGATIVE (NEGATIVE) U Cocaine Metab Screen NEGATIVE (NEGATIVE) U Marijuana (THC) Screen NEGATIVE (NEGATIVE) Ethyl Alcohol mg/dL SARS CoV-2 RNA Rapid SRINIVAS NEGATIVE (NEGATIVE) Medications Generic Name Dose Route Start Last Admin Trade Name Freq PRN Reason Stop Dose Admin Sodium Chloride 1,000 mls @ 150 mls/hr 01/02/20 13:21 01/02/20 15:52 Normal Saline IV 01/02/20 20:00 150 mls/hr STAT ONE Administration Potassium Chloride 40 meq/ 1,020 mls @ 200 mls/hr 01/02/20 14:30 Dextrose/Lactated Ringer's IV ASDIRECTED NUNU Sodium Chloride 10 ml 01/02/20 13:20 01/02/20 13:26 Saline Flush FLUSH 10 ml ASDIRECTED PRN Administration Keep Vein Open Sodium Chloride 2.5 ml 01/02/20 13:20 01/02/20 13:26 Saline Flush FLUSH 2.5 ml ASDIRECTED PRN Administration Keep Vein Open Discontinued Medications Generic Name Dose Route Start Last Admin Trade Name Chanoq PRN Reason Stop Dose Admin Sodium Chloride 1,000 mls @ 999 mls/hr 01/02/20 13:20 01/02/20 13:26 Normal Saline IV 01/02/20 14:20 999 mls/hr STAT ONE Administration Magnesium Sulfate 2 gm 01/02/20 14:20 01/02/20 14:53 Magnesium Sulfate In Water Premix IV 01/02/20 14:21 2 gm NOW STA Administration Departure - Departure Time of Disposition: 16:12 Disposition: Refer to Observation Clinical Impression: Polysubstance abuse, Hypokalemia, Suicidal ideation Intentional drug overdose Qualifiers: Encounter type: initial encounter Qualified Code(s): T50.902A - Poisoning by unspecified drugs, medicaments and biological substances, intentional self-harm, initial encounter - Discharge Information Critical Care Note - Critical Care Note Total Time (mins): 61 Comments: Critical care time is exclusive of billable procedures and the time to perform these procedures. Critical care time was used to prevent vital system organ failure and deterioration. Critical care time includes bedside management and high-complexity decision making requiring my highest level of mental preparedness and attention. This includes reviewing the patient's chart and prior medical records, ordering and reviewing interpreting laboratory studies and imaging results, interpretation of vital signs and EKG, pulse oximetry, and discussion with the admitting team along with EMS and nursing staff. 61 minutes were used assessing, reassessing patient. Reviewing lab values, vital signs and finding placement for patient. Sepsis Event Note (ED) - Evaluation Sepsis Screening Result: No Definite Risk - Focused Exam Vital Signs: Vital Signs Temp Pulse Resp BP Pulse Ox 01/02/20 15:00 101 H 17 114/62 97 01/02/20 14:30 101 H 17 104/58 L 96 01/02/20 14:00 102 H 17 113/64 98 01/02/20 13:30 99 17 114/62 99 01/02/20 13:15 96.5 F L 116 H 16 110/76 99 - My Orders Last 24 Hours: My Active Orders 01/02/20 13:20 EKG Documentation Completion [RC] STAT Sodium Chloride 0.9% [Saline Flush] 10 ml FLUSH ASDIRECTED PRN Sodium Chloride 0.9% [Saline Flush] 2.5 ml FLUSH ASDIRECTED PRN Saline Lock Insert [OM.PC] Stat 01/02/20 13:21 Sodium Chloride 0.9% [Normal Saline] 1,000 ml IV STAT 01/02/20 13:22 Communication Order [RC] STAT 01/02/20 14:30 CORONAVIRUS COVID-19 PCR PHL Stat Potassium Chloride 40 meq Dextrose 5%-Lactated Ringers 1,000 ml IV ASDIRECTED 01/02/20 17:00 ACETAMINOPHEN [CHEM] Stat SALICYLATE [CHEM] Stat - Assessment/Plan Last 24 Hours: My Active Orders 01/02/20 13:20 EKG Documentation Completion [RC] STAT Sodium Chloride 0.9% [Saline Flush] 10 ml FLUSH ASDIRECTED PRN Sodium Chloride 0.9% [Saline Flush] 2.5 ml FLUSH ASDIRECTED PRN Saline Lock Insert [OM.PC] Stat 01/02/20 13:21 Sodium Chloride 0.9% [Normal Saline] 1,000 ml IV STAT 01/02/20 13:22 Communication Order [RC] STAT 01/02/20 14:30 CORONAVIRUS COVID-19 PCR PHL Stat Potassium Chloride 40 meq Dextrose 5%-Lactated Ringers 1,000 ml IV ASDIRECTED 01/02/20 17:00 ACETAMINOPHEN [CHEM] Stat SALICYLATE [CHEM] Stat
--- NOTE | 2020-01-02 13:26 | PCM.SN.2 ---
- Free Text/Narrative Note: The patient was presented to me by the mid-level provider, who sees patients independently as a licensed independent practitioner by [facility] byla and [facility] law. Up until the time that I was consulted and assumed supervision, the mid-level provider had been solely and independently caring for this patient and they were responsible for all aspects of care including performing the history and physical, formulating medical decision making, ordering medications, and ordering and evaluating testing. I have personally and independently seen and evaluated the patient at bedside and, if available, have spoken with the with the family. I agree with the history, physical, medical decision making, and plan of treatment as documented by the mid-level provider. I have performed the medical decision making for this patient, including assessing the results of all diagnostic testing and I have instructed the mid-level provider to document the results and carry through with the treatment plan that I deemed appropriate. If needed, any other comments, a focused physical examination, or my own medical decision making are documented below. In brief, this is a 24-year-old female with a past medical history of migraines presenting with medication overdose. Patient reportedly took 30 tablets of her mother's quetiapine about 20 minutes prior to calling an ambulance. She also reportedly had some beer. She voices active suicidal ideations. Was upset about the loss of her child by child protective services. On triage, she is tachycardic and somewhat drowsy but answers questions and follows commands. She is maintaining her airway adequately. Narrow-complex sinus tachycardia on the environmental monitoring technician. Normal blood pressure. We will plan for broad toxicology work-up including twelve-lead EKG, acetaminophen, salicylates, urine drug screen, ethanol, serial cardiac monitoring. [facility] poison control system was contacted by [facility]. Likely overnight observation admission for cardiac monitoring and neurologic status monitoring, medical clearance, then psychiatric evaluation. 1418: Chest x-ray is clear. Twelve-lead EKG shows normal sinus rhythm, normal intervals, no QT prolongation or QRS widening. Labs show mild hypokalemia at 3.0. TSH is within normal limits. LFTs are reassuring. Urinalysis shows small ketones, no evidence of infection. test negative. Urine drug screen positive for amphetamines. Salicylate 4.1 which is detectable but within normal limits. Acetaminophen and ethyl alcohol are negative. Patient is receiving some IV fluids and had a COVID test is pending. Ordered magnesium sulfate and potassium IV for hypokalemia. Patient is mildly drowsy and intermittently tachycardic. She will need to be admitted for at least 24 hours of observation with telemetry and close neurologic monitoring. She will need to be admitted for medical clearance prior to psychiatric evaluation. We did attempt to place the patient at [facility] facilities that have attached psychiatric services, but they recommended admission in our facility due to bed shortage. [facility] spoke with the hospitalist Dr. David Read who agrees to admit to observation for medical clearance. Repeat salicylates and acetaminophen level reassuring. Transferred to observation unit.
--- NOTE | 2020-01-02 13:35 | PCM.SN.2 ---
- Free Text/Narrative Note: 12-Lead ECG Interpretation Acquired: 1:31 PM Rhythm: Sinus rhythm Rate: 95 bpm [place]: Normal Intervals: Normal Ectopy: None RV Strain: No obvious RV strain pattern. ST Segments/T-Waves: No notable changes Acute Ischemic Changes: None apparent Interpretation: No STEMI
[2020-01-02 13:53] LABS: ACETAMINOPHEN <2.0 ug/mL
[2020-01-02 14:04] LABS: BLOOD UREA NITROGEN,BUN 11 mg/dL (7.0-18.0); CARBON DIOXIDE,CO2 24.3 mmol/L (21.0-32.0); CHLORIDE,CL 106 mmol/L (98-107); GLUCOSE RANDOM 96 mg/dL (74-106); SODIUM,NA 141 mmol/L (136-145)
--- NOTE | 2020-01-02 14:05 | CR ---
Indication: Overdose. Technique: AP portable view of the chest. Comparison: July 21, 2008. Findings: The heart is normal in size. The left hemidiaphragm is mildly elevated. No infiltrate, pleural effusion, or pneumothorax is identified. Impression: No acute cardiopulmonary process. Dictated by Deandra Mitchell MD @ Jan 02 2020 2:04PM Signed by Dr. Deandra Mitchell @ Jan 02 2020 2:05PM
[2020-01-02] MEDS ORDERED: Magnesium Sulfate/Water 2 GM/50 ML Premix Bag IV STA (14:20)
[2020-01-02] MEDS ORDERED: Potassium Chloride 40 MEQ in Dextrose 5%-Lactated Ringers 1,000 ML IV SCH (14:30)
[2020-01-02 18:16] LABS: POTASSIUM,K 3.6 mmol/L (3.5-5.1)
[2020-01-02 18:24] LABS: ACETAMINOPHEN < 2.0 ug/mL
[2020-01-02] MEDS ORDERED: LORazepam 2 MG/ML SDV IVPUSH PRN (20:03)
--- NOTE | 2020-01-02 20:13 | PCM.HP.2 ---
H&P History of Present Illness - General Date of Service: 01/02/20 Admit Problem/Dx: Admission Diagnosis/Problem Admission Diagnosis/Problem Drug overdose - History of Present Illness Initial Comments - Free Text/Narative: 24 yo female who presents to the ED after intentional overdose. Patient has recently lost custody of her child. She was found intoxicated in unsuitable living conditions at home. She reportedly took her mother's Seroquel. there were 11 tablets left in the bottle of a prescription of #30 tabs of 300mg. Patient had suicidal ideation in the ED. She is now somnolescent on the floor. States she just wanted out of the house but did not intend to kill herself. - Related Data Allergies/Adverse Reactions: Allergies Allergy/AdvReac Type Severity Reaction Status Date / Time sumatriptan [From Imitrex] Allergy Rash Verified 01/02/20 13:18 sumatriptan succinate Allergy Other Verified 01/02/20 13:18 [From Imitrex] Home Medications: Home Meds . [No Known Home Meds] 01/02/20 [History] Past Medical History - Past Health History Medical/Surgical History: Denies Medical/Surgical History HEENT History: Reports: Other (See Below) Other HEENT History: wears glasses Cardiovascular History: Reports: None Respiratory History: Reports: None Gastrointestinal History: Reports: None Genitourinary History: Reports: None [employer] History: Reports: Musculoskeletal History: Reports: Other (See Below) Other Musculoskeletal History: broken right foot Neurological History: Reports: None Psychiatric History: Reports: None Endocrine/Metabolic History: Reports: None Hematologic History: Reports: None Immunologic History: Reports: None Oncologic (Cancer) History: Reports: None Dermatologic History: Reports: None - Infectious Disease History Infectious Disease History: Reports: None - Past Surgical History HEENT Surgical History: Reports: Eye Surgery GI Surgical History: Reports: Appendectomy Social & Family History - Family History Family Medical History: No Pertinent Family History - Tobacco Use Tobacco Use Status *Q: Current Every Day Tobacco User Years of Tobacco use: 10 Packs/Tins Daily: 1 - Caffeine Use Caffeine Use: Reports: Coffee, Energy Drinks - Recreational Drug Use Recreational Drug Use: No H&P Review of Systems - Review of Systems: Review Of Systems: Comprehensive ROS is negative, except as noted in HPI. Exam - Exam Exam: See Below - Vital Signs Vital Signs: Last Vital Signs Temp 35.8 C L 01/02/20 13:15 Pulse 97 01/02/20 18:32 Resp 20 01/02/20 18:32 BP 91/72 01/02/20 19:52 Pulse Ox 96 01/02/20 18:32 Weight: 99.79 kg - Exam General: Cooperative, Sedated. No: Mild Distress HEENT: Mucosa Moist & [place] Lungs: Clear to Auscultation, Normal Respiratory Effort Cardiovascular: Regular Rate, Regular Rhythm GI/Abdominal Exam: Normal Bowel Sounds, Soft, Non-Tender Extremities: Non-Tender, No Pedal Edema Skin: Warm, Dry, Intact Neurological: Cranial Nerves Intact. No: Focal Deficit - Patient Data Lab Results Last 24 hrs: Laboratory Results - last 24 hr 01/02/20 01/02/20 01/02/20 Range/Units 13:18 13:18 13:18 WBC 6.52 (4.0-11.0) K/uL RBC 4.37 (4.30-5.90) M/uL Hgb 12.2 (12.0-16.0) g/dL Hct 38.8 (36.0-46.0) % MCV 88.8 (80.0-98.0) fL MCH 27.9 (27.0-32.0) pg MCHC 31.4 (31.0-37.0) g/dL RDW Std Deviation 47.0 (28.0-62.0) fl RDW Coeff of Brenda 15 (11.0-15.0) % Plt Count 282 (150-400) K/uL MPV 9.80 (7.40-12.00) fL Neut % (Auto) 61.3 (48.0-80.0) % Lymph % (Auto) 32.4 (16.0-40.0) % [place] % (Auto) 5.2 (0.0-15.0) % Eos % (Auto) 0.9 (0.0-7.0) % Baso % (Auto) 0.2 (0.0-1.5) % Neut # (Auto) 4.0 (1.4-5.7) K/uL Lymph # (Auto) 2.1 (0.6-2.4) K/uL Sargent # (Auto) 0.3 (0.0-0.8) K/uL Eos # (Auto) 0.1 (0.0-0.7) K/uL Baso # (Auto) 0.0 (0.0-0.1) K/uL Nucleated RBC % 0.0 /100WBC Nucleated RBCs # 0 K/uL Sodium 141 (136-145) mmol/L Potassium 3.0 L (3.5-5.1) mmol/L Chloride 106 (98-107) mmol/L Carbon Dioxide 24.3 (21.0-32.0) mmol/L BUN 11 (7.0-18.0) mg/dL Creatinine 0.8 (0.6-1.0) mg/dL Est Cr Clr Drug Dosing 103.63 mL/min Estimated GFR (MDRD) > 60.0 ml/min Glucose 96 (74-106) mg/dL Calcium 8.8 (8.5-10.1) mg/dL Magnesium 2.1 (1.8-2.4) mg/dL Total Bilirubin 0.3 (0.2-1.0) mg/dL AST 16 (15-37) IU/L ALT 32 (14-63) IU/L Alkaline Phosphatase 89 (46-116) U/L Total Protein 7.4 (6.4-8.2) g/dL Albumin 3.6 (3.4-5.0) g/dL Globulin 3.8 (2.6-4.0) g/dL Albumin/Globulin Ratio 0.9 (0.9-1.6) TSH 3rd Generation 2.54 (0.36-3.74) uIU/mL Urine Color Urine Appearance Urine pH (5.0-8.0) Ur Specific [place] (1.001-1.035) Urine Protein (NEGATIVE) mg/dL Urine Glucose (UA) (NEGATIVE) mg/dL Urine Ketones (NEGATIVE) mg/dL Urine Occult Blood (NEGATIVE) Urine Nitrite (NEGATIVE) Urine Bilirubin (NEGATIVE) Urine Urobilinogen (<2.0) EU/dL Ur Leukocyte Esterase (NEGATIVE) Urine HCG, Qual (NEGATIVE) Salicylates 4.1 (0-20) mg/dL Urine Opiates Screen (NEGATIVE) Ur Oxycodone Screen (NEGATIVE) Urine Methadone Screen (NEGATIVE) Acetaminophen <2.0 ug/mL Ur Barbiturates Screen (NEGATIVE) Ur Phencyclidine Scrn (NEGATIVE) Ur Amphetamine Screen (NEGATIVE) U Methamphetamines Scrn (NEGATIVE) U Benzodiazepines Scrn (NEGATIVE) U Cocaine Metab Screen (NEGATIVE) U Marijuana (THC) Screen (NEGATIVE) Ethyl Alcohol 5 mg/dL SARS CoV-2 RNA Rapid SRINIVAS (NEGATIVE) 01/02/20 01/02/20 01/02/20 Range/Units 13:47 13:47 13:47 WBC (4.0-11.0) K/uL RBC (4.30-5.90) M/uL Hgb (12.0-16.0) g/dL Hct (36.0-46.0) % MCV (80.0-98.0) fL MCH (27.0-32.0) pg MCHC (31.0-37.0) g/dL RDW Std Deviation (28.0-62.0) fl RDW Coeff of Brenda (11.0-15.0) % Plt Count (150-400) K/uL MPV (7.40-12.00) fL Neut % (Auto) (48.0-80.0) % Lymph % (Auto) (16.0-40.0) % Sargent % (Auto) (0.0-15.0) % Eos % (Auto) (0.0-7.0) % Baso % (Auto) (0.0-1.5) % Neut # (Auto) (1.4-5.7) K/uL Lymph # (Auto) (0.6-2.4) K/uL Sargent # (Auto) (0.0-0.8) K/uL Eos # (Auto) (0.0-0.7) K/uL Baso # (Auto) (0.0-0.1) K/uL Nucleated RBC % /100WBC Nucleated RBCs # K/uL Sodium (136-145) mmol/L Potassium (3.5-5.1) mmol/L Chloride (98-107) mmol/L Carbon Dioxide (21.0-32.0) mmol/L BUN (7.0-18.0) mg/dL Creatinine (0.6-1.0) mg/dL Est Cr Clr Drug Dosing mL/min Estimated GFR (MDRD) ml/min Glucose (74-106) mg/dL Calcium (8.5-10.1) mg/dL Magnesium (1.8-2.4) mg/dL Total Bilirubin (0.2-1.0) mg/dL AST (15-37) IU/L ALT (14-63) IU/L Alkaline Phosphatase (46-116) U/L Total Protein (6.4-8.2) g/dL Albumin (3.4-5.0) g/dL Globulin (2.6-4.0) g/dL Albumin/Globulin Ratio (0.9-1.6) TSH 3rd Generation (0.36-3.74) uIU/mL Urine Color YELLOW Urine Appearance CLEAR Urine pH 6.0 (5.0-8.0) Ur Specific [place] >= 1.030 (1.001-1.035) Urine Protein NEGATIVE (NEGATIVE) mg/dL Urine Glucose (UA) NEGATIVE (NEGATIVE) mg/dL Urine Ketones 15 H (NEGATIVE) mg/dL Urine Occult Blood NEGATIVE (NEGATIVE) Urine Nitrite NEGATIVE (NEGATIVE) Urine Bilirubin NEGATIVE (NEGATIVE) Urine Urobilinogen 1.0 (<2.0) EU/dL Ur Leukocyte Esterase NEGATIVE (NEGATIVE) Urine HCG, Qual NEGATIVE (NEGATIVE) Salicylates (0-20) mg/dL Urine Opiates Screen NEGATIVE (NEGATIVE) Ur Oxycodone Screen NEGATIVE (NEGATIVE) Urine Methadone Screen NEGATIVE (NEGATIVE) Acetaminophen ug/mL Ur Barbiturates Screen NEGATIVE (NEGATIVE) Ur Phencyclidine Scrn NEGATIVE (NEGATIVE) Ur Amphetamine Screen POSITIVE (NEGATIVE) U Methamphetamines Scrn POSITIVE (NEGATIVE) U Benzodiazepines Scrn NEGATIVE (NEGATIVE) U Cocaine Metab Screen NEGATIVE (NEGATIVE) U Marijuana (THC) Screen NEGATIVE (NEGATIVE) Ethyl Alcohol mg/dL SARS CoV-2 RNA Rapid SRINIVAS (NEGATIVE) 01/02/20 01/02/20 Range/Units 14:30 17:36 WBC (4.0-11.0) K/uL RBC (4.30-5.90) M/uL Hgb (12.0-16.0) g/dL Hct (36.0-46.0) % MCV (80.0-98.0) fL MCH (27.0-32.0) pg MCHC (31.0-37.0) g/dL RDW Std Deviation (28.0-62.0) fl RDW Coeff of Brenda (11.0-15.0) % Plt Count (150-400) K/uL MPV (7.40-12.00) fL Neut % (Auto) (48.0-80.0) % Lymph % (Auto) (16.0-40.0) % Sargent % (Auto) (0.0-15.0) % Eos % (Auto) (0.0-7.0) % Baso % (Auto) (0.0-1.5) % Neut # (Auto) (1.4-5.7) K/uL Lymph # (Auto) (0.6-2.4) K/uL Sargent # (Auto) (0.0-0.8) K/uL Eos # (Auto) (0.0-0.7) K/uL Baso # (Auto) (0.0-0.1) K/uL Nucleated RBC % /100WBC Nucleated RBCs # K/uL Sodium (136-145) mmol/L Potassium 3.6 (3.5-5.1) mmol/L Chloride (98-107) mmol/L Carbon Dioxide (21.0-32.0) mmol/L BUN (7.0-18.0) mg/dL Creatinine (0.6-1.0) mg/dL Est Cr Clr Drug Dosing mL/min Estimated GFR (MDRD) ml/min Glucose (74-106) mg/dL Calcium (8.5-10.1) mg/dL Magnesium (1.8-2.4) mg/dL Total Bilirubin (0.2-1.0) mg/dL AST (15-37) IU/L ALT (14-63) IU/L Alkaline Phosphatase (46-116) U/L Total Protein (6.4-8.2) g/dL Albumin (3.4-5.0) g/dL Globulin (2.6-4.0) g/dL Albumin/Globulin Ratio (0.9-1.6) TSH 3rd Generation (0.36-3.74) uIU/mL Urine Color Urine Appearance Urine pH (5.0-8.0) Ur Specific [place] (1.001-1.035) Urine Protein (NEGATIVE) mg/dL Urine Glucose (UA) (NEGATIVE) mg/dL Urine Ketones (NEGATIVE) mg/dL Urine Occult Blood (NEGATIVE) Urine Nitrite (NEGATIVE) Urine Bilirubin (NEGATIVE) Urine Urobilinogen (<2.0) EU/dL Ur Leukocyte Esterase (NEGATIVE) Urine HCG, Qual (NEGATIVE) Salicylates 3.0 (0-20) mg/dL Urine Opiates Screen (NEGATIVE) Ur Oxycodone Screen (NEGATIVE) Urine Methadone Screen (NEGATIVE) Acetaminophen < 2.0 ug/mL Ur Barbiturates Screen (NEGATIVE) Ur Phencyclidine Scrn (NEGATIVE) Ur Amphetamine Screen (NEGATIVE) U Methamphetamines Scrn (NEGATIVE) U Benzodiazepines Scrn (NEGATIVE) U Cocaine Metab Screen (NEGATIVE) U Marijuana (THC) Screen (NEGATIVE) Ethyl Alcohol mg/dL SARS CoV-2 RNA Rapid SRINIVAS NEGATIVE (NEGATIVE) Result Diagrams: 01/03/20 05:50 01/03/20 05:50 Sepsis Event Note - Evaluation Sepsis Screening Result: No Definite Risk - Focused Exam Vital Signs: Vital Signs Temp Pulse Pulse Resp BP Pulse Ox 01/02/20 19:52 91/72 01/02/20 18:32 97 20 122/69 96 01/02/20 15:00 101 H 17 114/62 97 01/02/20 14:30 101 H 17 104/58 L 96 01/02/20 14:00 102 H 17 113/64 98 01/02/20 13:30 99 17 114/62 99 01/02/20 13:15 35.8 C L 116 H 16 110/76 99 Problem List Initiated/Reviewed/Updated: Yes Orders Last 24hrs: Active Orders 24 hr Category Date Time Status Admission Status [Patient Status] [ADT] Stat ADT 01/02/20 15:32 Active Antiembolic Devices [RC] PER UNIT ROUTINE Care 01/02/20 20:05 Ordered Communication Order [RC] STAT Care 01/02/20 13:22 Active EKG Documentation Completion [RC] STAT Care 01/02/20 13:20 Active Oxygen Therapy [RC] PRN Care 01/02/20 20:04 Ordered Up ad Tess [RC] ASDIRECTED Care 01/02/20 20:04 Ordered VTE/DVT Education [RC] PER UNIT ROUTINE Care 01/02/20 20:04 Ordered Vital Signs [RC] Q4H Care 01/02/20 20:04 Ordered Regular Diet [DIET] Diet 01/02/20 Breakfast Ordered CBC W/O DIFF,HEMOGRAM [HEME] AM Lab 01/03/20 05:11 Ordered COMPREHENSIVE METABOLIC PN,CMP [CHEM] AM Lab 01/03/20 05:11 Ordered CORONAVIRUS COVID-19 PCR PHL Stat Lab 01/02/20 14:30 Received Folic Acid Med 01/02/20 20:15 Ordered 1 mg SUBCUT DAILY LORazepam [Ativan] Med 01/02/20 20:03 Ordered See Protocol IVPUSH Q4H PRN Sodium Chloride 0.9% [Saline Flush] Med 01/02/20 13:20 Active 10 ml FLUSH ASDIRECTED PRN Sodium Chloride 0.9% [Saline Flush] Med 01/02/20 13:20 Active 2.5 ml FLUSH ASDIRECTED PRN Sodium Chloride 0.9% with KCl [Normal Saline with 40 Med 01/02/20 16:45 Active mEq KCl] 1,000 ml IV ASDIRECTED Thiamine [Vitamin B-1] 100 mg Med 01/02/20 20:15 Ordered Sodium Chloride 0.9% [Normal Saline] 100 ml IV DAILY Saline Lock Insert [OM.PC] Stat Oth 01/02/20 13:20 Ordered Sequential Compression Device [OM.PC] Per Unit Routine Oth 01/02/20 20:05 Ordered Resuscitation Status Routine Resus Stat 01/02/20 20:04 Ordered Medication Orders Folic Acid (Folic Acid) 1 mg SUBCUT DAILY NUNU Potassium Chloride/Sodium Chloride (Normal Saline With 40 Meq Kcl) 1,000 mls @ 200 mls/hr IV ASDIRECTED NUNU Thiamine HCl 100 mg/ Sodium (Chloride) 101 mls @ 202 mls/hr IV DAILY NUNU Lorazepam (Ativan) 0 mg IVPUSH Q4H PRN; Protocol PRN Reason: CIWAA Sodium Chloride (Saline Flush) 10 ml FLUSH ASDIRECTED PRN PRN Reason: Keep Vein Open Last Admin: 01/02/20 13:26 Dose: 10 ml Documented by: URSULA Sodium Chloride (Saline Flush) 2.5 ml FLUSH ASDIRECTED PRN PRN Reason: Keep Vein Open Last Admin: 01/02/20 13:26 Dose: 2.5 ml Documented by: URSULA Assessment/Plan Comment:: 24 yo female admitted for cardiac monitoring after seroquel overdose. [facility] is holding a psychiatric bed for her. Plan on transferring in morning once medically cleared.
[2020-01-02] MEDS: Sodium Chloride 0.9% with KCl 1,000 ML IV SCH (20:17)
[2020-01-02] MEDS: Folic Acid 50 MG/10 ML MDV SUBCUT SCH (20:45)
[2020-01-02] MEDS: Thiamine 100 MG in Sodium Chloride 0.9% 100 ML IV SCH (21:14)
[2020-01-03] MEDS: Sodium Chloride 0.9% with KCl 1,000 ML IV SCH (02:28)
[2020-01-03 06:59] LABS: BLOOD UREA NITROGEN,BUN 7 mg/dL (7.0-18.0); CHLORIDE,CL 115 mmol/L (98-107); GLUCOSE RANDOM 87 mg/dL (74-106); POTASSIUM,K 4.1 mmol/L (3.5-5.1); SODIUM,NA 145 mmol/L (136-145)
[2020-01-03] MEDS: Sodium Chloride 0.9% 1,000 ML IV SCH ×3 (07:32→22:15)
[2020-01-03] MEDS: Thiamine 100 MG in Sodium Chloride 0.9% 100 ML IV SCH (08:43)
[2020-01-03] MEDS: Folic Acid 50 MG/10 ML MDV SUBCUT SCH (08:56)
--- NOTE | 2020-01-03 12:14 | PCM.PN ---
- General Info Date of Service: 01/03/20 Admission Dx/Problem (Free Text): Admission Diagnosis/Problem Admission Diagnosis/Problem Drug overdose Subjective Update: Pt is a 24 y/o F admitted for medication overdose, upon admission was found to have overdosed on Seroquel. Since admission last night has been sleeping, but arousable to sternal rub and responsive to pain; but no able to communicate. Pt was seen and examined at bedside does not appear to be in pain and is very lethargic. There were no overnight events, continues to be monitored on Tele and is on the [facility] protocol. Per nursing pt has not urinated, with bladder scan found to have more than 500cc of urine. Were unable to straight cath therefore inserted Salcido catheter. - Review of Systems General: Reports: No Symptoms HEENT: Reports: No Symptoms Pulmonary: Reports: No Symptoms Cardiovascular: Reports: No Symptoms Gastrointestinal: Reports: No Symptoms Genitourinary: Reports: No Symptoms Musculoskeletal: Reports: No Symptoms Skin: Reports: No Symptoms Neurological: Reports: No Symptoms Psychiatric: Reports: No Symptoms - Patient Data Vitals - Most Recent: Last Vital Signs Temp 98.5 F 01/03/20 08:00 Pulse 86 01/03/20 08:00 Resp 18 01/03/20 08:00 BP 111/73 01/03/20 08:00 Pulse Ox 96 01/03/20 08:00 Weight - Most Recent: 220 lb I&O - Last 24 Hours: Intake & Output 01/02/20 01/03/20 01/03/20 22:59 06:59 14:59 Output Total 580 Balance -580 Lab Results Last 24 Hours: Laboratory Results - last 24 hr 01/02/20 01/02/20 01/02/20 Range/Units 13:18 13:18 13:18 WBC 6.52 (4.0-11.0) K/uL RBC 4.37 (4.30-5.90) M/uL Hgb 12.2 (12.0-16.0) g/dL Hct 38.8 (36.0-46.0) % MCV 88.8 (80.0-98.0) fL MCH 27.9 (27.0-32.0) pg MCHC 31.4 (31.0-37.0) g/dL RDW Std Deviation 47.0 (28.0-62.0) fl RDW Coeff of Brenda 15 (11.0-15.0) % Plt Count 282 (150-400) K/uL MPV 9.80 (7.40-12.00) fL Neut % (Auto) 61.3 (48.0-80.0) % Lymph % (Auto) 32.4 (16.0-40.0) % Gregory % (Auto) 5.2 (0.0-15.0) % Eos % (Auto) 0.9 (0.0-7.0) % Baso % (Auto) 0.2 (0.0-1.5) % Neut # (Auto) 4.0 (1.4-5.7) K/uL Lymph # (Auto) 2.1 (0.6-2.4) K/uL Gregory # (Auto) 0.3 (0.0-0.8) K/uL Eos # (Auto) 0.1 (0.0-0.7) K/uL Baso # (Auto) 0.0 (0.0-0.1) K/uL Nucleated RBC % 0.0 /100WBC Nucleated RBCs # 0 K/uL Sodium 141 (136-145) mmol/L Potassium 3.0 L (3.5-5.1) mmol/L Chloride 106 (98-107) mmol/L Carbon Dioxide 24.3 (21.0-32.0) mmol/L BUN 11 (7.0-18.0) mg/dL Creatinine 0.8 (0.6-1.0) mg/dL Est Cr Clr Drug Dosing 103.63 mL/min Estimated GFR (MDRD) > 60.0 ml/min Glucose 96 (74-106) mg/dL Calcium 8.8 (8.5-10.1) mg/dL Magnesium 2.1 (1.8-2.4) mg/dL Total Bilirubin 0.3 (0.2-1.0) mg/dL AST 16 (15-37) IU/L ALT 32 (14-63) IU/L Alkaline Phosphatase 89 (46-116) U/L Total Protein 7.4 (6.4-8.2) g/dL Albumin 3.6 (3.4-5.0) g/dL Globulin 3.8 (2.6-4.0) g/dL Albumin/Globulin Ratio 0.9 (0.9-1.6) TSH 3rd Generation 2.54 (0.36-3.74) uIU/mL Urine Color Urine Appearance Urine pH (5.0-8.0) Ur Specific [place] (1.001-1.035) Urine Protein (NEGATIVE) mg/dL Urine Glucose (UA) (NEGATIVE) mg/dL Urine Ketones (NEGATIVE) mg/dL Urine Occult Blood (NEGATIVE) Urine Nitrite (NEGATIVE) Urine Bilirubin (NEGATIVE) Urine Urobilinogen (<2.0) EU/dL Ur Leukocyte Esterase (NEGATIVE) Urine HCG, Qual (NEGATIVE) Salicylates 4.1 (0-20) mg/dL Urine Opiates Screen (NEGATIVE) Ur Oxycodone Screen (NEGATIVE) Urine Methadone Screen (NEGATIVE) Acetaminophen <2.0 ug/mL Ur Barbiturates Screen (NEGATIVE) Ur Phencyclidine Scrn (NEGATIVE) Ur Amphetamine Screen (NEGATIVE) U Methamphetamines Scrn (NEGATIVE) U Benzodiazepines Scrn (NEGATIVE) U Cocaine Metab Screen (NEGATIVE) U Marijuana (THC) Screen (NEGATIVE) Ethyl Alcohol 5 mg/dL SARS CoV-2 RNA Rapid SRINIVAS (NEGATIVE) 01/02/20 01/02/20 01/02/20 Range/Units 13:47 13:47 13:47 WBC (4.0-11.0) K/uL RBC (4.30-5.90) M/uL Hgb (12.0-16.0) g/dL Hct (36.0-46.0) % MCV (80.0-98.0) fL MCH (27.0-32.0) pg MCHC (31.0-37.0) g/dL RDW Std Deviation (28.0-62.0) fl RDW Coeff of Brenda (11.0-15.0) % Plt Count (150-400) K/uL MPV (7.40-12.00) fL Neut % (Auto) (48.0-80.0) % Lymph % (Auto) (16.0-40.0) % Gregory % (Auto) (0.0-15.0) % Eos % (Auto) (0.0-7.0) % Baso % (Auto) (0.0-1.5) % Neut # (Auto) (1.4-5.7) K/uL Lymph # (Auto) (0.6-2.4) K/uL Gregory # (Auto) (0.0-0.8) K/uL Eos # (Auto) (0.0-0.7) K/uL Baso # (Auto) (0.0-0.1) K/uL Nucleated RBC % /100WBC Nucleated RBCs # K/uL Sodium (136-145) mmol/L Potassium (3.5-5.1) mmol/L Chloride (98-107) mmol/L Carbon Dioxide (21.0-32.0) mmol/L BUN (7.0-18.0) mg/dL Creatinine (0.6-1.0) mg/dL Est Cr Clr Drug Dosing mL/min Estimated GFR (MDRD) ml/min Glucose (74-106) mg/dL Calcium (8.5-10.1) mg/dL Magnesium (1.8-2.4) mg/dL Total Bilirubin (0.2-1.0) mg/dL AST (15-37) IU/L ALT (14-63) IU/L Alkaline Phosphatase (46-116) U/L Total Protein (6.4-8.2) g/dL Albumin (3.4-5.0) g/dL Globulin (2.6-4.0) g/dL Albumin/Globulin Ratio (0.9-1.6) TSH 3rd Generation (0.36-3.74) uIU/mL Urine Color YELLOW Urine Appearance CLEAR Urine pH 6.0 (5.0-8.0) Ur Specific [place] >= 1.030 (1.001-1.035) Urine Protein NEGATIVE (NEGATIVE) mg/dL Urine Glucose (UA) NEGATIVE (NEGATIVE) mg/dL Urine Ketones 15 H (NEGATIVE) mg/dL Urine Occult Blood NEGATIVE (NEGATIVE) Urine Nitrite NEGATIVE (NEGATIVE) Urine Bilirubin NEGATIVE (NEGATIVE) Urine Urobilinogen 1.0 (<2.0) EU/dL Ur Leukocyte Esterase NEGATIVE (NEGATIVE) Urine HCG, Qual NEGATIVE (NEGATIVE) Salicylates (0-20) mg/dL Urine Opiates Screen NEGATIVE (NEGATIVE) Ur Oxycodone Screen NEGATIVE (NEGATIVE) Urine Methadone Screen NEGATIVE (NEGATIVE) Acetaminophen ug/mL Ur Barbiturates Screen NEGATIVE (NEGATIVE) Ur Phencyclidine Scrn NEGATIVE (NEGATIVE) Ur Amphetamine Screen POSITIVE (NEGATIVE) U Methamphetamines Scrn POSITIVE (NEGATIVE) U Benzodiazepines Scrn NEGATIVE (NEGATIVE) U Cocaine Metab Screen NEGATIVE (NEGATIVE) U Marijuana (THC) Screen NEGATIVE (NEGATIVE) Ethyl Alcohol mg/dL SARS CoV-2 RNA Rapid SRINIVAS (NEGATIVE) 01/02/20 01/02/20 01/03/20 Range/Units 14:30 17:36 05:50 WBC 7.69 (4.0-11.0) K/uL RBC 3.77 L (4.30-5.90) M/uL Hgb 10.6 L (12.0-16.0) g/dL Hct 34.1 L (36.0-46.0) % MCV 90.5 (80.0-98.0) fL MCH 28.1 (27.0-32.0) pg MCHC 31.1 (31.0-37.0) g/dL RDW Std Deviation 48.7 (28.0-62.0) fl RDW Coeff of Brenda 15 (11.0-15.0) % Plt Count 244 (150-400) K/uL MPV 10.00 (7.40-12.00) fL Neut % (Auto) (48.0-80.0) % Lymph % (Auto) (16.0-40.0) % Gregory % (Auto) (0.0-15.0) % Eos % (Auto) (0.0-7.0) % Baso % (Auto) (0.0-1.5) % Neut # (Auto) (1.4-5.7) K/uL Lymph # (Auto) (0.6-2.4) K/uL Gregory # (Auto) (0.0-0.8) K/uL Eos # (Auto) (0.0-0.7) K/uL Baso # (Auto) (0.0-0.1) K/uL Nucleated RBC % 0.0 /100WBC Nucleated RBCs # 0 K/uL Sodium (136-145) mmol/L Potassium 3.6 (3.5-5.1) mmol/L Chloride (98-107) mmol/L Carbon Dioxide (21.0-32.0) mmol/L BUN (7.0-18.0) mg/dL Creatinine (0.6-1.0) mg/dL Est Cr Clr Drug Dosing mL/min Estimated GFR (MDRD) ml/min Glucose (74-106) mg/dL Calcium (8.5-10.1) mg/dL Magnesium (1.8-2.4) mg/dL Total Bilirubin (0.2-1.0) mg/dL AST (15-37) IU/L ALT (14-63) IU/L Alkaline Phosphatase (46-116) U/L Total Protein (6.4-8.2) g/dL Albumin (3.4-5.0) g/dL Globulin (2.6-4.0) g/dL Albumin/Globulin Ratio (0.9-1.6) TSH 3rd Generation (0.36-3.74) uIU/mL Urine Color Urine Appearance Urine pH (5.0-8.0) Ur Specific [place] (1.001-1.035) Urine Protein (NEGATIVE) mg/dL Urine Glucose (UA) (NEGATIVE) mg/dL Urine Ketones (NEGATIVE) mg/dL Urine Occult Blood (NEGATIVE) Urine Nitrite (NEGATIVE) Urine Bilirubin (NEGATIVE) Urine Urobilinogen (<2.0) EU/dL Ur Leukocyte Esterase (NEGATIVE) Urine HCG, Qual (NEGATIVE) Salicylates 3.0 (0-20) mg/dL Urine Opiates Screen (NEGATIVE) Ur Oxycodone Screen (NEGATIVE) Urine Methadone Screen (NEGATIVE) Acetaminophen < 2.0 ug/mL Ur Barbiturates Screen (NEGATIVE) Ur Phencyclidine Scrn (NEGATIVE) Ur Amphetamine Screen (NEGATIVE) U Methamphetamines Scrn (NEGATIVE) U Benzodiazepines Scrn (NEGATIVE) U Cocaine Metab Screen (NEGATIVE) U Marijuana (THC) Screen (NEGATIVE) Ethyl Alcohol mg/dL SARS CoV-2 RNA Rapid SRINIVAS NEGATIVE (NEGATIVE) 01/03/20 Range/Units 05:50 WBC (4.0-11.0) K/uL RBC (4.30-5.90) M/uL Hgb (12.0-16.0) g/dL Hct (36.0-46.0) % MCV (80.0-98.0) fL MCH (27.0-32.0) pg MCHC (31.0-37.0) g/dL RDW Std Deviation (28.0-62.0) fl RDW Coeff of Brenda (11.0-15.0) % Plt Count (150-400) K/uL MPV (7.40-12.00) fL Neut % (Auto) (48.0-80.0) % Lymph % (Auto) (16.0-40.0) % Gregory % (Auto) (0.0-15.0) % Eos % (Auto) (0.0-7.0) % Baso % (Auto) (0.0-1.5) % Neut # (Auto) (1.4-5.7) K/uL Lymph # (Auto) (0.6-2.4) K/uL Gregory # (Auto) (0.0-0.8) K/uL Eos # (Auto) (0.0-0.7) K/uL Baso # (Auto) (0.0-0.1) K/uL Nucleated RBC % /100WBC Nucleated RBCs # K/uL Sodium 145 (136-145) mmol/L Potassium 4.1 (3.5-5.1) mmol/L Chloride 115 H (98-107) mmol/L Carbon Dioxide 24.0 (21.0-32.0) mmol/L BUN 7 (7.0-18.0) mg/dL Creatinine 0.6 (0.6-1.0) mg/dL Est Cr Clr Drug Dosing 138.17 mL/min Estimated GFR (MDRD) > 60.0 ml/min Glucose 87 (74-106) mg/dL Calcium 7.7 L (8.5-10.1) mg/dL Magnesium (1.8-2.4) mg/dL Total Bilirubin 0.4 (0.2-1.0) mg/dL AST 13 L (15-37) IU/L ALT 28 (14-63) IU/L Alkaline Phosphatase 69 (46-116) U/L Total Protein 5.6 L (6.4-8.2) g/dL Albumin 2.6 L (3.4-5.0) g/dL Globulin 3.0 (2.6-4.0) g/dL Albumin/Globulin Ratio 0.9 (0.9-1.6) TSH 3rd Generation (0.36-3.74) uIU/mL Urine Color Urine Appearance Urine pH (5.0-8.0) Ur Specific [place] (1.001-1.035) Urine Protein (NEGATIVE) mg/dL Urine Glucose (UA) (NEGATIVE) mg/dL Urine Ketones (NEGATIVE) mg/dL Urine Occult Blood (NEGATIVE) Urine Nitrite (NEGATIVE) Urine Bilirubin (NEGATIVE) Urine Urobilinogen (<2.0) EU/dL Ur Leukocyte Esterase (NEGATIVE) Urine HCG, Qual (NEGATIVE) Salicylates (0-20) mg/dL Urine Opiates Screen (NEGATIVE) Ur Oxycodone Screen (NEGATIVE) Urine Methadone Screen (NEGATIVE) Acetaminophen ug/mL Ur Barbiturates Screen (NEGATIVE) Ur Phencyclidine Scrn (NEGATIVE) Ur Amphetamine Screen (NEGATIVE) U Methamphetamines Scrn (NEGATIVE) U Benzodiazepines Scrn (NEGATIVE) U Cocaine Metab Screen (NEGATIVE) U Marijuana (THC) Screen (NEGATIVE) Ethyl Alcohol mg/dL SARS CoV-2 RNA Rapid SRINIVAS (NEGATIVE) Med Orders - Current: Current Medications Folic Acid (Folic Acid) 1 mg SUBCUT DAILY [facility] Last Admin: 01/03/20 08:56 Dose: 1 mg Documented by: Thiamine HCl 100 mg/ Sodium (Chloride) 101 mls @ 202 mls/hr IV DAILY [facility] Last Admin: 01/03/20 08:43 Dose: 202 mls/hr Documented by: Sodium Chloride (Normal Saline) 1,000 mls @ 150 mls/hr IV ASDIRECTED [facility] Last Admin: 01/03/20 07:32 Dose: 150 mls/hr Documented by: Lorazepam (Ativan) 1 - 3 mg IVPUSH Q4H PRN; Protocol PRN Reason: CIWAA Sodium Chloride (Saline Flush) 10 ml FLUSH ASDIRECTED PRN PRN Reason: Keep Vein Open Last Admin: 01/02/20 13:26 Dose: 10 ml Documented by: Sodium Chloride (Saline Flush) 2.5 ml FLUSH ASDIRECTED PRN PRN Reason: Keep Vein Open Last Admin: 01/02/20 13:26 Dose: 2.5 ml Documented by: Discontinued Medications Sodium Chloride (Normal Saline) 1,000 mls @ 999 mls/hr IV STAT ONE Stop: 01/02/20 14:20 Last Admin: 01/02/20 13:26 Dose: 999 mls/hr Documented by: Sodium Chloride (Normal Saline) 1,000 mls @ 150 mls/hr IV STAT ONE Stop: 01/02/20 20:00 Last Admin: 01/02/20 15:52 Dose: 150 mls/hr Documented by: Potassium Chloride 40 meq/ (Dextrose/Lactated Ringer's) 1,020 mls @ 200 mls/hr IV ASDIRECTED [facility] Potassium Chloride/Sodium Chloride (Normal Saline With 40 Meq Kcl) 1,000 mls @ 200 mls/hr IV ASDIRECTED [facility] Last Admin: 01/03/20 02:28 Dose: 200 mls/hr Documented by: Magnesium Sulfate (Magnesium Sulfate In Water Premix) 2 gm IV NOW STA Stop: 01/02/20 14:21 Last Admin: 01/02/20 14:53 Dose: 2 gm Documented by: - Exam Quality Assessment: DVT Prophylaxis General: No Acute Distress, Lethargic HEENT: Pupils Equal, Pupils Reactive, EOMI, Mucous Membr. Moist/[place]ason Neck: Supple, Trachea Midline, No JVD Lungs: Clear to Auscultation, Normal Respiratory Effort Cardiovascular: Regular Rate, Regular Rhythm, No Murmurs GI/Abdominal Exam: Normal Bowel Sounds, Soft, Non-Tender, No Organomegaly, No Distention, Pelvis Stable Extremities: Normal Inspection, No Pedal Edema, Normal Capillary Refill Peripheral Pulses: 2+: Radial (L), Radial (R), Dorsalis Pedis (L), Dorsalis Pedis (R) Skin: Warm, Dry, Intact Neurological: Sensation Intact, Other (unable to assess due to lethargy) Sepsis Event Note - Evaluation Sepsis Screening Result: No Definite Risk - Focused Exam Vital Signs: Vital Signs Temp Pulse Resp BP Pulse Ox 01/03/20 08:00 98.5 F 86 18 111/73 96 01/03/20 03:39 98.1 F 103 H 20 95/53 L 93 L - Problem List & Annotations (1) Hypokalemia SNOMED Code(s): 72427193 Code(s): E87.6 - HYPOKALEMIA Status: Acute Current Visit: Yes (2) Intentional drug overdose SNOMED Code(s): 59149614 Code(s): T50.902A - POISONING BY UNSP DRUG/MEDS/BIOL SUBST, SELF-HARM, INIT Status: Acute Current Visit: Yes Qualifiers: Encounter type: initial encounter Qualified Code(s): T50.902A - Poisoning by unspecified drugs, medicaments and biological substances, intentional self- harm, initial encounter (3) Suicidal ideation SNOMED Code(s): 8763964 Code(s): R45.851 - SUICIDAL IDEATIONS Status: Acute Current Visit: Yes - Problem List Review Problem List Initiated/Reviewed/Updated: Yes - My Orders Last 24 Hours: My Active Orders 01/03/20 07:00 Insert Salcido Catheter [Insert Urinary Catheter] [OM.PC] Q24H 01/03/20 09:35 Urinary Catheter Assessment [RC] Q12H 01/03/20 11:08 EKG 12 Lead [EKG Documentation Completion] [RC] URGENT - Plan Plan:: Pt is a 24 yo female admitted for cardiac monitoring after Seroquel overdose. 1. Overdose with SI on admission: -[facility] is holding a psychiatric bed for her. Pt is currently lethargic and unable to communicate. Repeat EKG to rule out any Q-T prolongation or changes. Continuous CR monitoring; remains in sinus rhythm with no ectopy. Close monitoring with 1:1 sitter. -If patient wakes up will consult Dr. Curtis in Psychiatry for his evaluation and recommendations prior to considering transfer to [facility] 2. Hypokalemia: resolved, today 4.1, continue to monitor with morning CMP daily. 3. Hx. 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
--- NOTE | 2020-01-03 17:36 | CT ---
Indication: Change in mental status patient overdose to yesterday Technique: Noncontrast head CT. FINDINGS: Axial noncontrast images through the brain parenchyma demonstrates no acute intracranial hemorrhage or mass. No midline shift no abnormal extra-axial air fluid collections are seen. Paranasal sinuses mastoid air cells skull and scalp appear unremarkable aside from mucosal thickening maxillary sinuses and ethmoid air cells. Impression: No acute intracranial hemorrhage or mass. Please note that all CT scans at this facility use dose modulation, iterative reconstruction, and/or weight-based dosing when appropriate to reduce radiation dose to as low as reasonably achievable. Dictated by Moraima Ford MD @ Jan 03 2020 5:29PM Signed by Dr. Moraima Ford @ Jan 03 2020 5:34PM
[2020-01-04] MEDS: Sodium Chloride 0.9% 1,000 ML IV SCH ×3 (04:41→18:17)
[2020-01-04 06:21] LABS: BLOOD UREA NITROGEN,BUN 4 mg/dL (7.0-18.0); CARBON DIOXIDE,CO2 23.9 mmol/L (21.0-32.0); CHLORIDE,CL 108 mmol/L (98-107); GLUCOSE RANDOM 88 mg/dL (74-106); POTASSIUM,K 3.8 mmol/L (3.5-5.1); SODIUM,NA 141 mmol/L (136-145)
[2020-01-04] MEDS: Folic Acid 50 MG/10 ML MDV SUBCUT SCH (09:48)
[2020-01-04] MEDS: Thiamine 100 MG in Sodium Chloride 0.9% 100 ML IV SCH (09:49)
--- NOTE | 2020-01-04 15:26 | PCM.PN ---
<Eb Rincon - Last Filed: 01/04/20 15:19> - General Info Date of Service: 01/04/20 Admission Dx/Problem (Free Text): Patient was lethargic and sleepy at time of examination. Patient does however respond to verbal command. Patient was agitated on questioning and stated that she wants to be left alone and sleep. She denied any medical concerns. - Review of Systems General: Reports: Weakness, Other (Lethargic). Denies: Fever Pulmonary: Denies: Shortness of Breath Cardiovascular: Denies: Chest Pain Gastrointestinal: Denies: Abdominal Pain Neurological: Reports: Confusion Psychiatric: Reports: Confusion - Patient Data Vitals - Most Recent: Last Vital Signs Temp 98.3 F 01/04/20 12:00 Pulse 104 H 01/04/20 04:00 Resp 18 01/04/20 12:00 BP 118/71 01/04/20 12:00 Pulse Ox 96 01/04/20 12:00 Weight - Most Recent: 99.79 kg I&O - Last 24 Hours: Intake & Output 01/04/20 01/04/20 01/04/20 06:59 14:59 22:59 Intake Total 1760 Output Total 1360 Balance 400 Lab Results Last 24 Hours: Laboratory Results - last 24 hr 01/03/20 01/04/20 01/04/20 Range/Units 16:15 01:38 05:15 WBC 13.46 H (4.0-11.0) K/uL RBC 4.09 L (4.30-5.90) M/uL Hgb 11.8 L (12.0-16.0) g/dL Hct 36.8 (36.0-46.0) % MCV 90.0 (80.0-98.0) fL MCH 28.9 (27.0-32.0) pg MCHC 32.1 (31.0-37.0) g/dL RDW Std Deviation 49.2 (28.0-62.0) fl RDW Coeff of Brenda 15 (11.0-15.0) % Plt Count 248 (150-400) K/uL MPV 10.30 (7.40-12.00) fL Neut % (Auto) 86.1 H (48.0-80.0) % Lymph % (Auto) 7.7 L (16.0-40.0) % Norman % (Auto) 5.9 (0.0-15.0) % Eos % (Auto) 0.2 (0.0-7.0) % Baso % (Auto) 0.1 (0.0-1.5) % Neut # (Auto) 11.6 H (1.4-5.7) K/uL Lymph # (Auto) 1.0 (0.6-2.4) K/uL Norman # (Auto) 0.8 (0.0-0.8) K/uL Eos # (Auto) 0.0 (0.0-0.7) K/uL Baso # (Auto) 0.0 (0.0-0.1) K/uL Nucleated RBC % 0.0 /100WBC Nucleated RBCs # 0 K/uL Sodium (136-145) mmol/L Potassium (3.5-5.1) mmol/L Chloride (98-107) mmol/L Carbon Dioxide (21.0-32.0) mmol/L BUN (7.0-18.0) mg/dL Creatinine (0.6-1.0) mg/dL Est Cr Clr Drug Dosing mL/min Estimated GFR (MDRD) ml/min Glucose (74-106) mg/dL POC Glucose 84 74 (60-110) mg/dL Calcium (8.5-10.1) mg/dL Phosphorus (2.6-4.7) mg/dL Magnesium (1.8-2.4) mg/dL Total Bilirubin (0.2-1.0) mg/dL AST (15-37) IU/L ALT (14-63) IU/L Alkaline Phosphatase (46-116) U/L Total Protein (6.4-8.2) g/dL Albumin (3.4-5.0) g/dL Globulin (2.6-4.0) g/dL Albumin/Globulin Ratio (0.9-1.6) 01/04/20 01/04/20 01/04/20 Range/Units 05:15 06:35 11:57 WBC (4.0-11.0) K/uL RBC (4.30-5.90) M/uL Hgb (12.0-16.0) g/dL Hct (36.0-46.0) % MCV (80.0-98.0) fL MCH (27.0-32.0) pg MCHC (31.0-37.0) g/dL RDW Std Deviation (28.0-62.0) fl RDW Coeff of Brenda (11.0-15.0) % Plt Count (150-400) K/uL MPV (7.40-12.00) fL Neut % (Auto) (48.0-80.0) % Lymph % (Auto) (16.0-40.0) % Norman % (Auto) (0.0-15.0) % Eos % (Auto) (0.0-7.0) % Baso % (Auto) (0.0-1.5) % Neut # (Auto) (1.4-5.7) K/uL Lymph # (Auto) (0.6-2.4) K/uL Norman # (Auto) (0.0-0.8) K/uL Eos # (Auto) (0.0-0.7) K/uL Baso # (Auto) (0.0-0.1) K/uL Nucleated RBC % /100WBC Nucleated RBCs # K/uL Sodium 141 (136-145) mmol/L Potassium 3.8 (3.5-5.1) mmol/L Chloride 108 H (98-107) mmol/L Carbon Dioxide 23.9 (21.0-32.0) mmol/L BUN 4 L (7.0-18.0) mg/dL Creatinine 0.6 (0.6-1.0) mg/dL Est Cr Clr Drug Dosing 138.17 mL/min Estimated GFR (MDRD) > 60.0 ml/min Glucose 88 (74-106) mg/dL POC Glucose 86 74 (60-110) mg/dL Calcium 8.4 L (8.5-10.1) mg/dL Phosphorus 2.7 (2.6-4.7) mg/dL Magnesium 1.9 (1.8-2.4) mg/dL Total Bilirubin 0.5 (0.2-1.0) mg/dL AST 12 L (15-37) IU/L ALT 27 (14-63) IU/L Alkaline Phosphatase 77 (46-116) U/L Total Protein 6.4 (6.4-8.2) g/dL Albumin 2.8 L (3.4-5.0) g/dL Globulin 3.6 (2.6-4.0) g/dL Albumin/Globulin Ratio 0.8 L (0.9-1.6) Med Orders - Current: Current Medications Folic Acid (Folic Acid) 1 mg SUBCUT DAILY [facility] Last Admin: 01/04/20 09:48 Dose: 1 mg Documented by: Thiamine HCl 100 mg/ Sodium (Chloride) 101 mls @ 202 mls/hr IV DAILY [facility] Last Admin: 01/04/20 09:49 Dose: 202 mls/hr Documented by: Sodium Chloride (Normal Saline) 1,000 mls @ 150 mls/hr IV ASDIRECTED [facility] Last Admin: 01/04/20 11:53 Dose: 150 mls/hr Documented by: Lorazepam (Ativan) 1 - 3 mg IVPUSH Q4H PRN; Protocol PRN Reason: CIWAA Last Admin: 01/04/20 00:15 Dose: 1 mg Documented by: Sodium Chloride (Saline Flush) 10 ml FLUSH ASDIRECTED PRN PRN Reason: Keep Vein Open Last Admin: 01/02/20 13:26 Dose: 10 ml Documented by: Sodium Chloride (Saline Flush) 2.5 ml FLUSH ASDIRECTED PRN PRN Reason: Keep Vein Open Last Admin: 01/02/20 13:26 Dose: 2.5 ml Documented by: Discontinued Medications Sodium Chloride (Normal Saline) 1,000 mls @ 999 mls/hr IV STAT ONE Stop: 01/02/20 14:20 Last Admin: 01/02/20 13:26 Dose: 999 mls/hr Documented by: Sodium Chloride (Normal Saline) 1,000 mls @ 150 mls/hr IV STAT ONE Stop: 01/02/20 20:00 Last Admin: 01/02/20 15:52 Dose: 150 mls/hr Documented by: Potassium Chloride 40 meq/ (Dextrose/Lactated Ringer's) 1,020 mls @ 200 mls/hr IV ASDIRECTED [facility]U Potassium Chloride/Sodium Chloride (Normal Saline With 40 Meq Kcl) 1,000 mls @ 200 mls/hr IV ASDIRECTED NUNU Last Admin: 01/03/20 02:28 Dose: 200 mls/hr Documented by: Magnesium Sulfate (Magnesium Sulfate In Water Premix) 2 gm IV NOW STA Stop: 01/02/20 14:21 Last Admin: 01/02/20 14:53 Dose: 2 gm Documented by: - Exam General: Sedated, Lethargic. No: Cooperative, No Acute Distress Lungs: Clear to Auscultation, Normal Respiratory Effort Cardiovascular: Regular Rate, Regular Rhythm GI/Abdominal Exam: Normal Bowel Sounds, Soft, Non-Tender Psy/Mental Status: Agitated. No: Alert, Normal Affect Sepsis Event Note - Evaluation Sepsis Screening Result: No Definite Risk - Focused Exam Vital Signs: Vital Signs Temp Pulse Resp BP Pulse Ox 01/04/20 12:00 98.3 F 18 118/71 96 01/04/20 09:16 18 108/60 95 01/04/20 08:00 98.9 F 16 96/58 L 95 01/04/20 04:00 98.6 F 104 H 18 107/65 94 L - Problem List Review Problem List Initiated/Reviewed/Updated: Yes - My Orders Last 24 Hours: My Active Orders 01/04/20 11:42 Communication Order [RC] ROUTINE - Plan Plan:: Drug overdose due to intentional ingestion of Seroquel. Patient will be evaluated by psychiatry when she is more alert and then hospice office coordinator to a psychiatric facility, [facility]. Continuous CR monitoring, patient has a regular rate and remains in sinus rhythm. Patient being monitored via camera. Leukocytosis- Possibly due to Seroquel overdose. Patient has been afebrile. Will monitor with AM CBC <Kushal Arnold - Last Filed: 01/07/20 12:35> - Patient Data Vitals - Most Recent: Last Vital Signs Temp 37.0 C 01/05/20 18:00 Pulse 103 H 01/05/20 18:00 Resp 16 01/05/20 18:00 BP 144/86 H 01/05/20 18:00 Pulse Ox 93 L 01/05/20 13:00 Med Orders - Current: Current Medications Discontinued Medications Diphenhydramine HCl (Benadryl) 50 mg IM ONETIME PRN PRN Reason: Agitation Folic Acid (Folic Acid) 1 mg SUBCUT DAILY [facility] Last Admin: 01/05/20 09:32 Dose: 1 mg Documented by: Haloperidol Lactate (Haldol) 5 mg IM ONETIME PRN PRN Reason: Agitation Sodium Chloride (Normal Saline) 1,000 mls @ 999 mls/hr IV STAT ONE Stop: 01/02/20 14:20 Last Admin: 01/02/20 13:26 Dose: 999 mls/hr Documented by: Sodium Chloride (Normal Saline) 1,000 mls @ 150 mls/hr IV STAT ONE Stop: 01/02/20 20:00 Last Admin: 01/02/20 15:52 Dose: 150 mls/hr Documented by: Potassium Chloride 40 meq/ (Dextrose/Lactated Ringer's) 1,020 mls @ 200 mls/hr IV ASDIRECTED NUNU Potassium Chloride/Sodium Chloride (Normal Saline With 40 Meq Kcl) 1,000 mls @ 200 mls/hr IV ASDIRECTED NUNU Last Admin: 01/03/20 02:28 Dose: 200 mls/hr Documented by: Thiamine HCl 100 mg/ Sodium (Chloride) 101 mls @ 202 mls/hr IV DAILY NUNU Last Admin: 01/05/20 09:34 Dose: 202 mls/hr Documented by: Sodium Chloride (Normal Saline) 1,000 mls @ 150 mls/hr IV ASDIRECTED NUNU Last Admin: 01/05/20 07:28 Dose: 150 mls/hr Documented by: Lorazepam (Ativan) 1 - 3 mg IVPUSH Q4H PRN; Protocol PRN Reason: CIWAA Last Admin: 01/04/20 00:15 Dose: 1 mg Documented by: Lorazepam (Ativan) 2 mg IVPUSH ONETIME PRN PRN Reason: Agitation Magnesium Sulfate (Magnesium Sulfate In Water Premix) 2 gm IV NOW STA Stop: 01/02/20 14:21 Last Admin: 01/02/20 14:53 Dose: 2 gm Documented by: Sodium Chloride (Saline Flush) 10 ml FLUSH ASDIRECTED PRN PRN Reason: Keep Vein Open Last Admin: 01/02/20 13:26 Dose: 10 ml Documented by: Sodium Chloride (Saline Flush) 2.5 ml FLUSH ASDIRECTED PRN PRN Reason: Keep Vein Open Last Admin: 01/02/20 13:26 Dose: 2.5 ml Documented by: - Plan Plan:: I have seen and evaluated the patient and agree with the residents note unless specified in my note
[2020-01-05] MEDS: Sodium Chloride 0.9% 1,000 ML IV SCH ×2 (00:52→07:28)
[2020-01-05 07:09] LABS: BLOOD UREA NITROGEN,BUN 4 mg/dL (7.0-18.0); CARBON DIOXIDE,CO2 23.2 mmol/L (21.0-32.0); CHLORIDE,CL 109 mmol/L (98-107); GLUCOSE RANDOM 70 mg/dL (74-106); POTASSIUM,K 3.8 mmol/L (3.5-5.1); SODIUM,NA 141 mmol/L (136-145)
[2020-01-05] MEDS: Folic Acid 50 MG/10 ML MDV SUBCUT SCH (09:32)
[2020-01-05] MEDS: Thiamine 100 MG in Sodium Chloride 0.9% 100 ML IV SCH (09:34)
[2020-01-05] MEDS ORDERED: Haloperidol Lactate 5 MG/ML SDV IM PRN (14:53)
--- NOTE | 2020-01-05 14:53 | PCM.SN.2 ---
- Free Text/Narrative Note: Dr Curtis, via our tele-psychiatry service assessed the patient, he states that patient is not safe to go home as she poses a risk to herself. Based on his assessment he recommends to place her on hold and transfer to inpatient psych facility for further care. Will get an accepting facility, likely in [place], and initiate the transfer.
[2020-01-05] MEDS ORDERED: LORazepam 2 MG/ML SDV IVPUSH PRN (14:54)
[2020-01-05] MEDS ORDERED: diphenhydrAMINE 50 MG/ML SDV IM PRN (14:54)
--- NOTE | 2020-01-05 15:45 | PCM.DCSUM1 ---
Discharge Summary - Hospital Course Free Text/Narrative:: Patient is a 24-year-old female with a past medical history of migraines, Marijuana and methamphetamine, use presenting with medication overdose. Patient reportedly took 30 tablets of her mother's quetiapine about 20 minutes prior to calling an ambulance. She also reportedly had some beer. She voices active suicidal ideations. Was upset about the loss of her child by child protective services. Broad toxicology work-up was done including twelve-lead EKG, acetaminophen, salicylates, urine drug screen, ethanol, serial cardiac monitoring. [facility] poison control system was contacted as well. Chest x-ray was clear. Twelve-lead EKG shows normal sinus rhythm, normal intervals, no QT prolongation or QRS widening. Labs show mild hypokalemia at 3.0. TSH is within normal limits. LFTs are reassuring. Urinalysis shows small ketones, no evidence of infection. test negative. Urine drug screen positive for amphetamines. Salicylate 4.1 which is detectable but within normal limits. Acetaminophen and ethyl alcohol are negative. Patient received IV fluids and had a COVID test was negative, her electrolytes were repleted, Patient was drowsy and intermittently tachycardic. ED did attempt to place the patient at several regional facilities that have attached psychiatric services, but they recommended admission in our facility due to bed shortage. Repeat salicylates and acetaminophen level reassuring. She was eventually admitted for observation with telemetry and close neurologic monitoring till she gets medically cleared for psychiatry assessment. Patients Qtc was monitored, she was very lethargic and drowsy and in between had episodes of agitation. It took her 48 hours to be more awake and alert, today she was assessed by tele psychiatry service who recommended inpatient psychiatry admission as patient appears to have impaired judgement and impulsivity at this point of time and is not safe to be discharged yet from psychiatric point of view. Patient is being transferred for further management. Diagnosis: Stroke: No - Discharge Data Discharge Date: 01/05/20 Discharge Disposition: DC/Tfer to Psych Hosp/Unit 65 Condition: Fair - Referral to Home Health Primary Care Physician: PCP None - Patient Summary/Data Consults: Consultations 01/05/20 14:57 Consult to Physician [CONS] Urgent - Patient Instructions Diet: Usual Diet as Tolerated Activity: As Tolerated Driving: Do Not Drive Showering/Bathing: May Shower Notify Provider of: Fever, Increased Pain, Swelling and Redness, Nausea and/or Vomiting - Discharge Plan Home Medications: Home Meds . [No Known Home Meds] 01/02/20 [History] Forms: ED Department Discharge Referrals: PCP,None [Primary Care Provider] - - Discharge Summary/Plan Comment DC Time >30 min.: Yes (arranging accepting facility, arranging transport ) - Patient Data Vitals - Most Recent: Last Vital Signs Temp 36.7 C 01/05/20 13:00 Pulse 92 01/05/20 13:00 Resp 14 01/05/20 13:00 BP 128/69 01/05/20 13:00 Pulse Ox 93 L 01/05/20 13:00 Weight - Most Recent: 99.79 kg I&O - Last 24 hours: Intake & Output 01/05/20 01/05/20 01/05/20 06:59 14:59 22:59 Intake Total 1940 Output Total 1875 Balance 65 Lab Results - Last 24 hrs: Laboratory Results - last 24 hr 01/04/20 01/04/20 01/05/20 Range/Units 18:08 19:25 03:21 WBC (4.0-11.0) K/uL RBC (4.30-5.90) M/uL Hgb (12.0-16.0) g/dL Hct (36.0-46.0) % MCV (80.0-98.0) fL MCH (27.0-32.0) pg MCHC (31.0-37.0) g/dL RDW Std Deviation (28.0-62.0) fl RDW Coeff of Brenda (11.0-15.0) % Plt Count (150-400) K/uL MPV (7.40-12.00) fL Neut % (Auto) (48.0-80.0) % Lymph % (Auto) (16.0-40.0) % [place] % (Auto) (0.0-15.0) % Eos % (Auto) (0.0-7.0) % Baso % (Auto) (0.0-1.5) % Neut # (Auto) (1.4-5.7) K/uL Lymph # (Auto) (0.6-2.4) K/uL [place] # (Auto) (0.0-0.8) K/uL Eos # (Auto) (0.0-0.7) K/uL Baso # (Auto) (0.0-0.1) K/uL Nucleated RBC % /100WBC Nucleated RBCs # K/uL Sodium (136-145) mmol/L Potassium (3.5-5.1) mmol/L Chloride (98-107) mmol/L Carbon Dioxide (21.0-32.0) mmol/L BUN (7.0-18.0) mg/dL Creatinine (0.6-1.0) mg/dL Est Cr Clr Drug Dosing mL/min Estimated GFR (MDRD) ml/min Glucose (74-106) mg/dL POC Glucose 65 69 65 (60-110) mg/dL Calcium (8.5-10.1) mg/dL Total Bilirubin (0.2-1.0) mg/dL AST (15-37) IU/L ALT (14-63) IU/L Alkaline Phosphatase (46-116) U/L Total Protein (6.4-8.2) g/dL Albumin (3.4-5.0) g/dL Globulin (2.6-4.0) g/dL Albumin/Globulin Ratio (0.9-1.6) 01/05/20 01/05/20 Range/Units 06:22 06:22 WBC 8.27 (4.0-11.0) K/uL RBC 4.00 L (4.30-5.90) M/uL Hgb 11.4 L (12.0-16.0) g/dL Hct 35.8 L (36.0-46.0) % MCV 89.5 (80.0-98.0) fL MCH 28.5 (27.0-32.0) pg MCHC 31.8 (31.0-37.0) g/dL RDW Std Deviation 47.2 (28.0-62.0) fl RDW Coeff of Brenda 14 (11.0-15.0) % Plt Count 260 (150-400) K/uL MPV 9.90 (7.40-12.00) fL Neut % (Auto) 70.6 (48.0-80.0) % Lymph % (Auto) 20.6 (16.0-40.0) % [place] % (Auto) 6.5 (0.0-15.0) % Eos % (Auto) 2.2 (0.0-7.0) % Baso % (Auto) 0.1 (0.0-1.5) % Neut # (Auto) 5.8 H (1.4-5.7) K/uL Lymph # (Auto) 1.7 (0.6-2.4) K/uL [place] # (Auto) 0.5 (0.0-0.8) K/uL Eos # (Auto) 0.2 (0.0-0.7) K/uL Baso # (Auto) 0.0 (0.0-0.1) K/uL Nucleated RBC % 0.0 /100WBC Nucleated RBCs # 0 K/uL Sodium 141 (136-145) mmol/L Potassium 3.8 (3.5-5.1) mmol/L Chloride 109 H (98-107) mmol/L Carbon Dioxide 23.2 (21.0-32.0) mmol/L BUN 4 L (7.0-18.0) mg/dL Creatinine 0.6 (0.6-1.0) mg/dL Est Cr Clr Drug Dosing 138.17 mL/min Estimated GFR (MDRD) > 60.0 ml/min Glucose 70 L (74-106) mg/dL POC Glucose (60-110) mg/dL Calcium 8.3 L (8.5-10.1) mg/dL Total Bilirubin 0.3 (0.2-1.0) mg/dL AST 15 (15-37) IU/L ALT 21 (14-63) IU/L Alkaline Phosphatase 75 (46-116) U/L Total Protein 6.3 L (6.4-8.2) g/dL Albumin 2.7 L (3.4-5.0) g/dL Globulin 3.6 (2.6-4.0) g/dL Albumin/Globulin Ratio 0.8 L (0.9-1.6) Med Orders - Current: Current Medications Diphenhydramine HCl (Benadryl) 50 mg IM ONETIME PRN PRN Reason: Agitation Folic Acid (Folic Acid) 1 mg SUBCUT DAILY NUNU Last Admin: 01/05/20 09:32 Dose: 1 mg Documented by: Haloperidol Lactate (Haldol) 5 mg IM ONETIME PRN PRN Reason: Agitation Thiamine HCl 100 mg/ Sodium (Chloride) 101 mls @ 202 mls/hr IV DAILY [facility] Last Admin: 01/05/20 09:34 Dose: 202 mls/hr Documented by: Sodium Chloride (Normal Saline) 1,000 mls @ 150 mls/hr IV ASDIRECTED [facility] Last Admin: 01/05/20 07:28 Dose: 150 mls/hr Documented by: Lorazepam (Ativan) 1 - 3 mg IVPUSH Q4H PRN; Protocol PRN Reason: CIWAA Last Admin: 01/04/20 00:15 Dose: 1 mg Documented by: Lorazepam (Ativan) 2 mg IVPUSH ONETIME PRN PRN Reason: Agitation Sodium Chloride (Saline Flush) 10 ml FLUSH ASDIRECTED PRN PRN Reason: Keep Vein Open Last Admin: 01/02/20 13:26 Dose: 10 ml Documented by: Sodium Chloride (Saline Flush) 2.5 ml FLUSH ASDIRECTED PRN PRN Reason: Keep Vein Open Last Admin: 01/02/20 13:26 Dose: 2.5 ml Documented by: Discontinued Medications Sodium Chloride (Normal Saline) 1,000 mls @ 999 mls/hr IV STAT ONE Stop: 01/02/20 14:20 Last Admin: 01/02/20 13:26 Dose: 999 mls/hr Documented by: Sodium Chloride (Normal Saline) 1,000 mls @ 150 mls/hr IV STAT ONE Stop: 01/02/20 20:00 Last Admin: 01/02/20 15:52 Dose: 150 mls/hr Documented by: Potassium Chloride 40 meq/ (Dextrose/Lactated Ringer's) 1,020 mls @ 200 mls/hr IV ASDIRECTED [facility] Potassium Chloride/Sodium Chloride (Normal Saline With 40 Meq Kcl) 1,000 mls @ 200 mls/hr IV ASDIRECTED [facility] Last Admin: 01/03/20 02:28 Dose: 200 mls/hr Documented by: Magnesium Sulfate (Magnesium Sulfate In Water Premix) 2 gm IV NOW STA Stop: 01/02/20 14:21 Last Admin: 01/02/20 14:53 Dose: 2 gm Documented by:
--- NOTE | 2020-01-05 16:01 | CONS ---
DATE OF CONSULTATION: 01/05/2020 DATE OF : 1995 PRIMARY CARE PHYSICIAN: Phillip PCP Site where the services are provided is [facility] in [place], [place]. Site where the services are provided from our offices in [facility]. Length of service for this 60 minute inpatient telemedicine event is 60 minutes. IDENTIFICATION: Patient is a 24-year-old female who was admitted to the inpatient Med-Surg Overflow at [facility] in [place], [place]. She is seen for psychiatric consultation per the request of staff attending Dr. Arnold and her treatment team. CHIEF COMPLAINT: "I took too many pills." HISTORY OF PRESENT ILLNESS: Patient is a 24-year-old female who was admitted to the inpatient Med-Surg Unit at [facility] in [place], [place] on January 02, 2020, in the face of an overdose with Seroquel after apparently losing her 6-year-old son in a custody issue. Patient also left a suicide note and apparently took approximately 11 to 20 Seroquel that she got "from my mama." U-tox was negative on admission. The patient is endorsing a history of amphetamine use to the point where it has been considered an addiction and she is in treatment on an outpatient basis with a CD counselor. She states she does not know when she last used "I can barely remember what I did yesterday" and endorses impaired memory. She states "I don't know, I just did. I just felt overwhelmed and I did it." She denies that she is depressed, but she states "I am still tired, but other than that, I am fine," and then expresses a desire to be discharged, "so I can go and see my son" and then starts crying when she talked about her son. She is denying that she is suicidal or homicidal on the unit. She states that she has been psychotic in the past "when I use drugs," but she is denying that she has been experiencing any psychotic, delusional, or paranoid symptoms lately. She is alert and oriented x2 to person and place but not to date, thinking it is the th or 27th of the month. MEDICATIONS AT TIME OF ADMISSION: None. ALLERGIES: Sumatriptan. PAST MEDICAL HISTORY: Patient denies. REVIEW OF SYSTEMS: Aside from neuro and GI due to overdose, all other major organ systems are negative at this point in time for acute difficulties or complications. FAMILY PSYCHIATRIC AND CD HISTORY: Mother has a history of mental health issues, for which she is taking Seroquel. PAST PSYCHIATRIC AND CD HISTORY: Patient has one psychiatric hospitalization in the past, "as a kid." She does report she has been in chemical dependency treatment in the past on the inpatient side and she is currently working with a CD counselor for treatment of amphetamines, marijuana, and alcohol. She denies any previous suicide attempts or self-injurious behaviors. She denies ever being on psychiatric medications in the past. SOCIAL HISTORY: Patient was born and raised in [place], [place]. She states her highest level of education is a GED. She most recently had been working at [employer]. She has never been , but currently engaged. She lives with her fiance and then also with her brother. She has a 6-year-old son from a previous relationship. She denies any prior service or any current legal difficulties. She is agnostic in terms of her theresa formation. She enjoys reading and spending time with her son in her spare time. MENTAL STATUS EXAM: Patient is a 24-year-old female, in no apparent distress. Speech is of regular rate and rhythm. The patient is cognitively oriented x2 to person and place but not to date, thinking it is 26th or 27th of the month and not knowing what month it actually is, when asked. Psychomotor activities within normal limits. There is no abnormal motor movements or tics observed. Gait and station are not observed, this patient is lying in bed during the inpatient consult. Mood is "tired but fine." Affect is inconsistent with stated mood and quite labile and tearful and restricted and irritable and vague in her answers during the interview. There is no stated evidence of acute suicidal or homicidal ideation. The patient is nomi for safety in the unit. There are no acute psychotic, delusional, or paranoid symptoms. However, thought processes are significant for thought blocking as well as some disorganization. There are no acute manic symptoms or loose associations evident. However, judgment and insight do appear impaired at this point in time secondary to the patient's impaired cognition as well as apparent impulsivity. Motivation for help is poor. Vitals on presentation: 125/79, 88, 16, and 98 degrees. IMPRESSION: [place] I: 1. Major depressive disorder, F32.2. 2. Anxiety disorder, not otherwise specified, F41.9. 3. Suspected methamphetamine dependence, F15.20. 4. Suspected cannabis abuse versus dependence. 5. Suspected alcohol abuse versus dependence. 6. Rule out bipolar affective disease, mixed type. [place] II: No diagnosis at this time. [place] III: Status post overdose. [place] IV: Severe. [place] V: 50 to 55. PLAN: 1. Given patient's current psychiatric presentation, I would recommend transferring patient to inpatient psychiatry for further psychiatric stabilization through medication management, counseling, and CD treatment if necessary once the patient again is medically stabilized. 2. If the patient attempts to be AMA, would place the patient on hold and place on one-to-one given her past behaviors that led to her admission as well as lack of collateral information regarding the circumstances surrounding her admission, but given the fact that treatment does help, it would appear that the actions of placing the patient on hold and transferring to Inpatient Psychiatry when medically stabilized is justifiable. 3. All other medications as those prescribed by patient's primary inpatient medical treatment team. 4. Sobriety. 5. Recommend the patient follow up with outpatient psychiatry and/or CD treatment programming such as AA or NA if need be when patient is discharged from the inpatient Psychiatry and back to the community. 6. We will continue follow up with patient on an as-needed basis while she remains on the Inpatient Med-Surge Unit, [facility] in [place], [place]. 7. We will follow up with the patient sooner if any complications in the interim. 8. Crisis plan is in place. GREGORIO / MARJORIE /[id number]
[2020-01-05 19:52] VITALS: BP 144/86; PULSE 103
== END 2020-01-05 20:05 ==
LOC: MW.ED 13:13 → MW.ICU 15:32
PROVIDERS: ADMIT Internal Medicine; ATTEND Internal Medicine
DX: T43.592A Poisoning by other antipsychotics and neuroleptics, intentional self-harm, initial encounter (principal); F17.210 Nicotine dependence, cigarettes, uncomplicated; F32.9 Major depressive disorder, single episode, unspecified; F41.9 Anxiety disorder, unspecified; Z88.8 Allergy status to other drugs, medicaments and biological substances; Z98.890 Other specified postprocedural states; Z20.828 Contact with and (suspected) exposure to other viral communicable diseases
CPT/HCPCS: 36415; 51702; 70450; 71045; 80053; 80305; 80307; 81003; 81025; 82962; 83735; 84100; 84132; 84443; 85025; 85027; 87635; 93005; 96365; 96367; 96372; 96375; 96376; 99291; G0378; J2060; J3411; J3475; J3480; J7030; 99217; 99218; 99225; U0002

== ENCOUNTER 2020-01-27 10:19 | Emergency (ER) | payer MEDICAID ==
[2020-01-27] MEDS ORDERED: Sodium Chloride 0.9% 2.5 ML Syringe FLUSH PRN (10:30)
[2020-01-27] MEDS ORDERED: Sodium Chloride 0.9% 10 ML Syringe FLUSH PRN (10:30)
[2020-01-27] MEDS ORDERED: Sodium Chloride 0.9% 10 ML SDV IV PRN (10:30)
[2020-01-27] MEDS ORDERED: Morphine 4 MG/ML Syringe IVPUSH ONE (10:30)
[2020-01-27 11:05] LABS: BLOOD UREA NITROGEN,BUN 16 mg/dL (7.0-18.0); CARBON DIOXIDE,CO2 22.3 mmol/L (21.0-32.0); CHLORIDE,CL 105 mmol/L (98-107); GLUCOSE RANDOM 100 mg/dL (74-106); POTASSIUM,K 4.1 mmol/L (3.5-5.1); SODIUM,NA 140 mmol/L (136-145)
--- NOTE | 2020-01-27 11:11 | CR ---
INDICATION: Trauma COMPARISON: None TECHNIQUE: AP upright single view study FINDINGS: TUBES AND LINES: None. HEART AND MEDIASTINUM: The heart size is normal. The mediastinal contour appears normal for patient age. LUNGS AND PLEURAL SPACES: The lungs appear normal.The pleural spaces are unremarkable. OSSEOUS STRUCTURES: Age-appropriate appearance. No acute focal finding. IMPRESSION: No evidence of active pulmonary disease. Dictated by Kai Bundy MD @ Jan 27 2020 11:09AM Signed by Dr. Kai Bundy @ Jan 27 2020 11:10AM
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
[2020-01-27] MEDS ORDERED: Acetaminophen 325 MG Tab PO ONE (11:33)
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
[2020-01-27 12:47] VITALS: BP 127/78; PULSE 91
[2020-01-27] MEDS ORDERED: Iopamidol 755 MG/ML 500 ML Multipack Bottle IVPUSH STA (12:52)
== END 2020-01-27 12:48 | disposition home or self-care (01) ==
LOC: MW.ED 10:19
DX: S16.1XXA Strain of muscle, fascia and tendon at neck level, initial encounter (principal); S00.83XA Contusion of other part of head, initial encounter; Z88.8 Allergy status to other drugs, medicaments and biological substances; Y04.0XXA Assault by unarmed brawl or fight, initial encounter
CPT/HCPCS: 36415; 70450; 70486; 70498; 71045; 80053; 80305; 80307; 81003; 84703; 85025; 85610; 85730; 99284; A9270; Q9967; 72125-26; 99283

== ENCOUNTER 2020-03-12 19:39 | Emergency (ER) | payer MEDICAID ==
--- NOTE | 2020-03-12 19:44 | EDM.PDOC ---
ED HPI GENERAL MEDICAL PROBLEM - General Chief Complaint: Lower Extremity Injury/Pain Stated Complaint: FELL DOWN STAIR/TWISTED ANKLE/HIT HEAD Time Seen by Provider: 03/12/20 19:42 Source of Information: Reports: Patient History Limitations: Reports: No Limitations - History of Present Illness INITIAL COMMENTS - FREE TEXT/NARRATIVE: HISTORY AND PHYSICAL: History of present illness: Patient is a 24-year-old female who presents to the ED with complaints of ankle pain. States she was helping her friend move today when she slipped down some stairs, rolled her ankle and hit the back of her head on the wall. She states she is unable to walk on her left foot as it causes a sharp, shooting pain. She states the back of her head is mildly tender but it is mostly her ankle that hurts. She has not taken anything for the pain. Patient denies any fever, chills, headache, change in vision, syncope or near syncope. Denies any chest pain, back pain, shortness of breath or cough. Denies any abdominal pain, nausea, vomiting, diarrhea, constipation or dysuria. Has not noted any blood in urine or stool. No concern for . Patient has been eating and drinking appropriately. Review of systems: As per history of present illness and below otherwise all systems reviewed and negative. Past medical history: As per history of present illness and as reviewed below otherwise noncontributory. Surgical history: As per history of present illness and as reviewed below otherwise noncontributory. Social history: See social history for further information Family history: As per history of present illness and as reviewed below otherwise noncontributory. Physical exam: General: Well developed and well nourished 24-year-old female. Alert and orientated x 3. Nontoxic in appearance and in no acute distress. Vital signs are stable and have been reviewed by me. Nursing notes were reviewed. HEENT: Atraumatic, normocephalic, pupils equal and reactive bilaterally, neg ative for conjunctival pallor or scleral icterus, mucous membranes moist, trachea midline. No drooling or trismus noted. No meningeal signs. No hot potato voice noted. Mild tenderness noted over occipital bone. Lungs: Clear to auscultation bilaterally. No wheezes, rales, or rhonchi. Chest nontender. Normal work of breathing, no accessory muscles used. Heart: S1S2, regular rate and rhythm without overt murmur, gallops, or rubs. No JVD. No peripheral edema Abdomen: Soft, nondistended, nontender. Pelvis: Stable nontender. C-spine/Back: No pinpoint vertebral tenderness upon palpation. No crepitus, step-offs or obvious deformities. Patient is ambulatory into the emergency room without difficulty or deficit. Able to rock back on heels and walk on toes. Denies any urinary or fecal incontinence. Denies any numbness, tingling or saddle paresthesia. No concerns of serious infection, fracture or cord compression, or cauda equina syndrome. Deep tendon reflexes brisk bilaterally. Skin: Intact, warm, dry. No lesions or rashes noted. Hematologic: No petechiae or purpra. Mucosa appropriate color and normal nail bed color and refill. Extremities: Mild left lateral malleolus tenderness and soft tissue swelling noted. Good flexion and extension at the ankle. Strong pedal and pretibial pulses bilaterally. She moves all extremities per self, negative for cords or calf pain. Neurovascular unremarkable. Neuro: Awake, alert, oriented. Cranial nerves II through XII unremarkable. Cerebellum unremarkable. Motor and sensory unremarkable throughout. Exam nonfocal. Psychiatric: Mood and affect are appropriate. Normal thought process. Answering questions appropriately. Notes: *This patient was seen and evaluated during the 2019 SARS-CoV-2 novel coronavirus pandemic period. Community viral transmission is ongoing at time of this encounter and the emergency department is operating under pandemic response procedures. After my physical assessment I have talked to her about doing an x-ray of the ankle and foot which she is agreeable. She states she did hit her head although she had no loss of consciousness, she has no change in vision, no headache or concerns with the fall. We discussed risks versus benefits of the head CT and that at this time I do not feel it is warranted, patient is agreeable. X-ray shows no acute findings. There is mild soft tissue swelling noted in the foot and ankle. Stirrup ankle splint and crutches for left ankle sprain. Patient to wear over the next 1-3 days to be nonweight bearing for comfort/healing purposes.I have talked with the patient about today's findings, in addition to providing specific details for plan of care. Reassessment at the time of disposition demonstrates that the patient is in no acute distress. The patient is stable for discharge, counseling was provided and we discussed in great detail signs and symptoms that would prompt them to return to the Emergency Department. Medication, follow up and supportive care measures were reviewed and discussed. Voices understanding and is agreeable to plan of care. Denies any further questions or concerns at this time. Diagnostics: Foot/ankle x-ray Therapeutics: Crutches, stirrup ankle splint, Toradol IM Prescription: None Impression: Ankle sprain Fall Plan: 1. Rest, ice, elevate the affected extremity. Please wear the splint and use crutches as directed. 2. Tylenol and/or Ibuprofen as needed for pain management. 3. Follow up with the Orthopedic provider as we discussed. Return to the ED as needed and as discussed. Definitive disposition and diagnosis as appropriate pending reevaluation and review of above. left ankle Pain Score (Numeric/FACES): 5 - Related Data Allergies Allergy/AdvReac Type Severity Reaction Status Date / Time sumatriptan [From Imitrex] Allergy Rash Verified 03/12/20 19:54 sumatriptan succinate Allergy Other Verified 03/12/20 19:54 [From Imitrex] Home Meds: Home Meds . 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: Musculoskeletal History: Reports: Other (See Below) Other Musculoskeletal History: broken right foot Neurological History: Reports: None Psychiatric History: Reports: None Endocrine/Metabolic History: Reports: None Hematologic History: Reports: None Immunologic History: Reports: None Oncologic (Cancer) History: Reports: None Dermatologic History: Reports: None - Infectious Disease History Infectious Disease History: Reports: None - Past Surgical History HEENT Surgical History: Reports: Eye Surgery GI Surgical History: Reports: Appendectomy Social & Family History - Family History Family Medical History: No Pertinent Family History - Caffeine Use Caffeine Use: Reports: Coffee Caffeine Use Comment: 16-32 ounces per day Review of Systems - Review of Systems Review Of Systems: Comprehensive ROS is negative, except as noted in HPI. ED EXAM, GENERAL - Physical Exam Exam: See Below (See dictation) Course - Vital Signs Last Recorded V/S: Last Vital Signs Temp 99 F 03/12/20 19:45 Pulse 107 H 03/12/20 19:45 Resp 16 03/12/20 19:45 BP 135/84 03/12/20 19:45 Pulse Ox 96 03/12/20 19:45 - Orders/Labs/Meds Orders: Active Orders 24 hr Category Date Time Status DME for Discharge [COMM] Stat Oth 03/12/20 20:36 Ordered Meds: Medications Discontinued Medications Generic Name Dose Route Start Last Admin Trade Name Freq PRN Reason Stop Dose Admin Ketorolac Tromethamine 60 mg 03/12/20 20:17 03/12/20 20:36 Toradol IM 03/12/20 20:18 60 mg ONETIME ONE Administration Departure - Departure Time of Disposition: 20:47 Disposition: Home, Self-Care 01 Clinical Impression: Fall Qualifiers: Encounter type: initial encounter Qualified Code(s): W19.XXXA - Unspecified fall, initial encounter Ankle sprain Qualifiers: Encounter type: initial encounter Involved ligament of ankle: unspecified ligament Laterality: left Qualified Code(s): S93.402A - Sprain of unspecified ligament of left ankle, initial encounter - Discharge Information Instructions: Ankle Sprain, [id number] Referrals: PCP,None [Primary Care Provider] - Forms: ED Department Discharge Additional Instructions: The following information is given to patients seen in the emergency department who are being discharged to home. This information is to outline your options for follow-up care. We provide all patients seen in our emergency department with a follow-up referral. The need for follow-up, as well as the timing and circumstances, are variable depending upon the specifics of your emergency department visit. If you don't have a primary care physician on staff, we will provide you with a referral. We always advise you to contact your personal physician following an emergency department visit to inform them of the circumstance of the visit and for follow-up with them and/or the need for any referrals to a consulting specialist. The emergency department will also refer you to a specialist when appropriate. This referral assures that you have the opportunity for follow-up care with a specialist. All of these measure are taken in an effort to provide you with optimal care, which includes your follow-up. Under all circumstances we always encourage you to contact your private physician who remains a resource for coordinating your care. When calling for follow-up care, please make the office aware that this follow-up is from your recent emergency room visit. If for any reason you are refused follow-up, please contact the [facility] Emergency Department at and asked to speak to the emergency department charge nurse. [facility] [address] [place] [id number] [facility] [address] [place] [id number] Thank you for choosing the [facility] emergency department in [place] for your medical needs today. It was a pleasure caring for you. Today you were seen in the emergency department for ankle sprain post fall. 1. Rest, ice, elevate the affected extremity. Please wear the splint and use crutches as directed. 2. Tylenol and/or Ibuprofen as needed for pain management. 3. Follow up with the Orthopedic provider as we discussed. Return to the ED as needed and as discussed. Sepsis Event Note (ED) - Focused Exam Vital Signs: Vital Signs Temp Pulse Resp BP Pulse Ox 03/12/20 19:45 99 F 107 H 16 135/84 96 - My Orders Last 24 Hours: My Active Orders 03/12/20 20:36 DME for Discharge [COMM] Stat - Assessment/Plan Last 24 Hours: My Active Orders 03/12/20 20:36 DME for Discharge [COMM] Stat
[2020-03-12 19:54] VITALS: PULSE 107
[2020-03-12] MEDS ORDERED: Ketorolac 60 MG/2 ML SDV IM ONE (20:17)
--- NOTE | 2020-03-12 20:47 | CR ---
HISTORY: Ankle pain. COMPARISON: None. FINDINGS: Three views of the left ankle. The ankle mortise appears intact. No evidence for acute fracture or dislocation. Mild soft tissue swelling about the ankle. Dictated by Fransisca Larson MD @ Mar 12 2020 8:43PM Signed by Dr. Fransisca Larson @ Mar 12 2020 8:44PM
--- NOTE | 2020-03-12 20:47 | CR ---
HISTORY: Foot pain. COMPARISON: None. FINDINGS: Two views of the left foot. No evidence for acute fracture or dislocation. The joint spaces appear preserved. No erosions. Mild soft tissue swelling about the foot. Dictated by Fransisca Larson MD @ Mar 12 2020 8:44PM Signed by Dr. Fransisca Larson @ Mar 12 2020 8:45PM
[2020-03-12 21:01] VITALS: BP 146/75
== END 2020-03-12 20:58 | disposition home or self-care (01) ==
LOC: MW.ED 19:39
DX: S93.402A Sprain of unspecified ligament of left ankle, initial encounter (principal); Z88.8 Allergy status to other drugs, medicaments and biological substances; X50.9XXA Other and unspecified overexertion or strenuous movements or postures, initial encounter
CPT/HCPCS: 73610; 73620; 96372; 99283; J1885

== ENCOUNTER 2021-02-10 19:04 | Emergency (ER) | payer MEDICAID ==
[2021-02-10 19:13] VITALS: BP 116/68; PULSE 97
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
== END 2021-02-10 19:45 ==
LOC: MW.ED 19:04
DX: S10.91XA Abrasion of unspecified part of neck, initial encounter (principal); F10.129 Alcohol abuse with intoxication, unspecified; Z88.8 Allergy status to other drugs, medicaments and biological substances
CPT/HCPCS: 99283

== ENCOUNTER 2021-02-23 14:34 | Emergency (ER) | payer SELFPAY ==
--- NOTE | 2021-02-23 15:10 | EDM.PDOC ---
ED HPI GENERAL MEDICAL PROBLEM - General Chief Complaint: ENT Problem Stated Complaint: EAR PAIN, SWOLLEN FACE Time Seen by Provider: 02/23/21 14:35 Source of Information: Reports: Patient History Limitations: Reports: No Limitations - History of Present Illness INITIAL COMMENTS - FREE TEXT/NARRATIVE: HISTORY AND PHYSICAL: History of present illness: Patient is a 25-year-old female who presents to the emergency room with complaints of left ear pain that started a few days ago and is now traveled to the left upper jaw. She has noticed some swelling to the left posterior gumline with tenderness to touch. Patient denies any fever, chills, headache, change in vision, syncope or near syncope. Denies any chest pain, back pain, shortness of breath or cough. Denies any GI or symptoms. Patient has been eating and drinking appropriately. No recent travel or sick contacts. Review of systems: As per history of present illness and below otherwise all systems reviewed and n egative. Past medical history: As per history of present illness and as reviewed below otherwise noncontributory. Surgical history: As per history of present illness and as reviewed below otherwise noncontributory. Social history: See social history for further information Family history: As per history of present illness and as reviewed below otherwise noncontributory. Physical exam: General: Well developed and well nourished 25-year-old female. Alert and orientated x 3. Nontoxic in appearance and in no acute distress. Vital signs are stable and have been reviewed by me. Nursing notes were reviewed. HEENT: Atraumatic, normocephalic, pupils equal and reactive bilaterally, negative for conjunctival pallor or scleral icterus, mucous membranes moist, redness and tenderness to the outer gumline of 14 and 15. No roof or floor tenderness. Mild redness noted at the 9 to 11 o'clock position on the left TM, right TMs normal, throat clear, neck supple, nontender, trachea midline. No drooling or trismus noted. No meningeal signs. No hot potato voice noted. Lungs: Clear to auscultation bilaterally. No wheezes, rales, or rhonchi. Chest nontender. Normal work of breathing, no accessory muscles used. Heart: S1S2, regular rate and rhythm without overt murmur, gallops, or rubs. No JVD. No peripheral edema Abdomen: Soft, nondistended, nontender. Normoactive bowel sounds. Negative for masses or costovertebral tenderness. Skin: Intact, warm, dry. No lesions or rashes noted. Hematologic: No petechiae or purpra. Mucosa appropriate color and normal nail bed color and refill. Extremities: Atraumatic, moves all extremities per self without difficulty or deficits, negative for cords or calf pain. Neurovascular unremarkable. Neuro: Awake, alert, oriented. Cranial nerves II through XII unremarkable. Cerebellum unremarkable. Motor and sensory unremarkable throughout. Exam nonfocal. Psychiatric: Mood and affect are appropriate. Normal thought process. Answering questions appropriately. Please note that the patient was seen and evaluated during the 2019 SARS-CoV-2 novel coronavirus pandemic period. Community viral transmission is ongoing at time of this encounter and the emergency department is operating under pandemic response procedures. Medical Decision Making: I have talked with the patient about today's findings, in addition to providing specific details for plan of care. Reassessment at the time of disposition demonstrates that the patient is in no acute distress. The patient is stable for discharge, counseling was provided and we discussed in great detail signs and symptoms that would prompt them to return to the Emergency Department. Medication, follow up and supportive care measures were reviewed and discussed. Voices understanding and is agreeable to plan of care. Denies any further questions or concerns at this time. Diagnostics: None Therapeutics: Dental balls Prescription: Ibuprofen, Augmentin Impression: Dental abscess Plan: 1. You were evaluated today on an emergent basis. Your left upper posterior molar and left ear has an infection. Please take the antibiotic as prescribed. 2. You can alternate Tylenol and ibuprofen as needed for pain and fever management. 3. We encourage you to follow up with your primary care provider and/or dentist for re-evaluation and further care/management. 4. If your symptoms should worsen, new symptoms develop or any of the signs and symptoms we discussed should arise please return to the emergency room or call 911 (if needed). Definitive disposition and diagnosis as appropriate pending reevaluation and review of above. left facial Pain Score (Numeric/FACES): 6 - Related Data Allergies Allergy/AdvReac Type Severity Reaction Status Date / Time sumatriptan [From Imitrex] Allergy Rash Verified 02/23/21 14:55 sumatriptan succinate Allergy Other Verified 02/23/21 14:55 [From Imitrex] Home Meds: Home Meds Amoxicillin/Clavulanate K [Augmentin 875-125 MG] 1 tab PO BID 10 Days #20 tablet 02/23/21 [Rx] Ibuprofen [Motrin] 800 mg PO TID PRN #30 tablet 02/23/21 [Rx] Past Medical History - Past Health History Medical/Surgical History: Denies Medical/Surgical History HEENT History: Reports: Other (See Below) Other HEENT History: wears glasses Cardiovascular History: Reports: None Respiratory History: Reports: None Gastrointestinal History: Reports: None Genitourinary History: Reports: None 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: Musculoskeletal History: Reports: Other (See Below) Other Musculoskeletal History: broken right foot Neurological History: Reports: None Psychiatric History: Reports: None Endocrine/Metabolic History: Reports: None Hematologic History: Reports: None Immunologic History: Reports: None Oncologic (Cancer) History: Reports: None Dermatologic History: Reports: None - Infectious Disease History Infectious Disease History: Reports: None - Past Surgical History HEENT Surgical History: Reports: Eye Surgery GI Surgical History: Reports: Appendectomy Social & Family History - Family History Family Medical History: No Pertinent Family History - Tobacco Use Second Hand Smoke Exposure: No - Caffeine Use Caffeine Use: Reports: None Caffeine Use Comment: 16-32 ounces per day - Recreational Drug Use Recreational Drug Use: No ED ROS ENT - Review of Systems Review Of Systems: Comprehensive ROS is negative, except as noted in HPI. ED EXAM, ENT - Physical Exam Exam: See Below (See dictation) Course - Vital Signs Last Recorded V/S: Last Vital Signs Temp 97.8 F 02/23/21 14:52 Pulse 91 02/23/21 15:20 Resp 16 02/23/21 15:20 BP 116/83 02/23/21 15:20 Pulse Ox 98 02/23/21 15:20 - Orders/Labs/Meds Meds: Medications Discontinued Medications Generic Name Dose Route Start Last Admin Trade Name Freq PRN Reason Stop Dose Admin Benzocaine 2 each 02/23/21 15:17 02/23/21 15:24 Benzocaine 20% Topical [place] Ud MUCMEM 02/23/21 15:18 2 each ONETIME ONE Administration Lidocaine HCl 15 ml 02/23/21 15:17 02/23/21 15:24 Lidocaine 2% Viscous Solution 15 Ml Ud PO 02/23/21 15:18 15 ml ONETIME ONE Administration Departure - Departure Time of Disposition: 15:20 Disposition: Home, Self-Care 01 Clinical Impression: Dental abscess - Discharge Information Prescriptions: Amoxicillin/Clavulanate K [Augmentin 875-125 MG] 1 tab PO BID 10 Days #20 tablet Ibuprofen [Motrin] 800 mg PO TID PRN #30 tablet PRN Reason: Pain Instructions: Dental Abscess, [id number] Forms: ED Department Discharge Additional Instructions: The following information is given to patients seen in the emergency department who are being discharged to home. This information is to outline your options for follow-up care. We provide all patients seen in our emergency department with a follow-up referral. The need for follow-up, as well as the timing and circumstances, are variable depending upon the specifics of your emergency department visit. If you don't have a primary care physician on staff, we will provide you with a referral. We always advise you to contact your personal physician following an emergency department visit to inform them of the circumstance of the visit and for follow-up with them and/or the need for any referrals to a consulting specialist. The emergency department will also refer you to a specialist when appropriate. This referral assures that you have the opportunity for follow-up care with a specialist. All of these measure are taken in an effort to provide you with optimal care, which includes your follow-up. Under all circumstances we always encourage you to contact your private physician who remains a resource for coordinating your care. When calling for follow-up care, please make the office aware that this follow-up is from your recent emergency room visit. If for any reason you are refused follow-up, please contact the [facility] at and asked to speak to the emergency department charge nurse. [facility] [address] [place] [id number] [facility] [address] [place] [id number] Thank you for choosing the [facility] emergency department in [place] for your medical needs today. It was a pleasure caring for you. Today you were seen in the emergency department for dental and ear infection Your prescription was electronically sent to: [place] pharmacy Medication/Directions: Augmentin, 1 tab twice daily x 10 days 1. You were evaluated today on an emergent basis. Your left upper posterior molar and left ear has an infection. Please take the antibiotic as prescribed. 2. You can alternate Tylenol and ibuprofen as needed for pain and fever management. 3. We encourage you to follow up with your primary care provider and/or dentist for re-evaluation and further care/management. 4. If your symptoms should worsen, new symptoms develop or any of the signs and symptoms we discussed should arise please return to the emergency room or call 911 (if needed). Sepsis Event Note (ED) - Evaluation Sepsis Screening Result: No Definite Risk - Focused Exam Vital Signs: Vital Signs Temp Pulse Resp BP Pulse Ox 02/23/21 15:20 91 16 116/83 98 02/23/21 14:52 97.8 F 100 20 141/75 H 95
[2021-02-23] MEDS ORDERED: Lidocaine 2% Viscous Solution 15 ML UD PO ONE (15:17)
[2021-02-23] MEDS ORDERED: Benzocaine 20% Topical Spray UD MUCMEM ONE (15:17)
[2021-02-23 15:21] VITALS: BP 116/83; PULSE 91
== END 2021-02-23 15:34 | disposition home or self-care (01) ==
LOC: MW.ED 14:34
DX: K04.7 Periapical abscess without sinus (principal); Z88.8 Allergy status to other drugs, medicaments and biological substances
CPT/HCPCS: 99283; A9270

== ENCOUNTER 2021-08-29 21:31 | Emergency (ER) | payer MEDICAID ==
[2021-08-29] MEDS ORDERED: Sodium Chloride 0.9% 2.5 ML Syringe FLUSH PRN (22:18)
[2021-08-29] MEDS ORDERED: Sodium Chloride 0.9% 10 ML Syringe FLUSH PRN (22:18)
[2021-08-29] MEDS ORDERED: Metoclopramide 10 MG/2 ML SDV IVPUSH ONE (22:19)
[2021-08-29] MEDS ORDERED: Lactated Ringers 1,000 ML IV ONE (22:19)
[2021-08-29 23:53] LABS: BLOOD UREA NITROGEN,BUN 16 mg/dL (7.0-18.0); CARBON DIOXIDE,CO2 24.4 mmol/L (21.0-32.0); CHLORIDE,CL 103 mmol/L (98-107); GLUCOSE RANDOM 96 mg/dL (74-106); POTASSIUM,K 3.4 mmol/L (3.5-5.1); SODIUM,NA 138 mmol/L (136-145)
[2021-08-29 23:55] LABS: ESTIMATED GFR 121 mL/min (>60)
[2021-08-30] MEDS ORDERED: Cephalexin 500 MG Cap PO ONE (01:07)
[2021-08-30 01:53] VITALS: BP 141/89; PULSE 84
[2021-08-30 02:33] LABS: C. TRACHOMATIS BY PCR NOT DETECTED; N. GONORRHOEAE BY PCR NOT DETECTED
== END 2021-08-30 01:43 | disposition home or self-care (01) ==
LOC: MW.ED 21:31
DX: O23.91 Unspecified genitourinary tract infection in pregnancy, first trimester (principal); R82.71 Bacteriuria; Z3A.01 Less than 8 weeks gestation of pregnancy; Z88.8 Allergy status to other drugs, medicaments and biological substances; Z90.49 Acquired absence of other specified parts of digestive tract
CPT/HCPCS: 36415; 76817; 80053; 81001; 84702; 85025; 87480; 87491; 87510; 87591; 87660; 96361; 96374; 99284; A9270; J2765; J3490; J7120

== ENCOUNTER 2021-11-09 15:25 | Emergency (ER) | payer MEDICAID ==
[2021-11-09] MEDS ORDERED: Sodium Chloride 0.9% 10 ML Syringe FLUSH PRN (15:30)
[2021-11-09] MEDS ORDERED: Sodium Chloride 0.9% 1,000 ML IV ONE (15:30)
[2021-11-09] MEDS ORDERED: Sodium Chloride 0.9% 2.5 ML Syringe FLUSH PRN (15:30)
[2021-11-09] MEDS ORDERED: Ondansetron 4 MG/2 ML SDV IVPUSH ONE (16:09)
[2021-11-09 16:52] LABS: CARBON DIOXIDE,CO2 24.6 mmol/L (21.0-32.0); POTASSIUM,K 3.5 mmol/L (3.5-5.1)
[2021-11-09 18:05] VITALS: BP 135/68; PULSE 86
== END 2021-11-09 18:04 | disposition home or self-care (01) ==
LOC: MW.ED 15:25
DX: O23.42 Unspecified infection of urinary tract in pregnancy, second trimester (principal); N39.0 Urinary tract infection, site not specified; K52.9 Noninfective gastroenteritis and colitis, unspecified; F17.210 Nicotine dependence, cigarettes, uncomplicated; Z88.8 Allergy status to other drugs, medicaments and biological substances; Z20.822 Contact with and (suspected) exposure to COVID-19; Z3A.16 16 weeks gestation of pregnancy
CPT/HCPCS: 36415; 80053; 81001; 85025; 87086; 87635; 96361; 96374; 99284; J2405; J3490; J7030; U0002

== ENCOUNTER 2022-01-26 23:42 | Emergency (ER) | payer MEDICAID ==
[2022-01-27] MEDS ORDERED: predniSONE 20 MG Tab PO ONE (01:04)
[2022-01-27] MEDS ORDERED: diphenhydrAMINE 50 MG Cap PO ONE (01:04)
[2022-01-27 01:15] VITALS: BP 123/74; PULSE 81
== END 2022-01-27 01:15 | disposition home or self-care (01) ==
LOC: MW.ED 23:42
DX: O99.713 Diseases of the skin and subcutaneous tissue complicating pregnancy, third trimester (principal); L50.9 Urticaria, unspecified; O99.333 Smoking (tobacco) complicating pregnancy, third trimester; F17.210 Nicotine dependence, cigarettes, uncomplicated; Z88.8 Allergy status to other drugs, medicaments and biological substances; Z3A.28 28 weeks gestation of pregnancy
CPT/HCPCS: 99282; A9270

== ENCOUNTER 2022-04-17 20:16 | Inpatient (IN) | payer MEDICAID ==
[2022-04-17] MEDS: Lactated Ringers 1,000 ML IV SCH ×2 (20:24→23:17)
[2022-04-17] MEDS ORDERED: Lidocaine 1% 50 ML MDV INJECT PRN (21:06)
[2022-04-17] MEDS ORDERED: Tranexamic Acid 1,000 MG in Sodium Chloride 0.9% 100 ML IV PRN (21:06)
[2022-04-17] MEDS ORDERED: Sodium Chloride 0.9% 10 ML Syringe FLUSH PRN (21:06)
[2022-04-17] MEDS ORDERED: Carboprost Tromethamine 250 MCG/1 ML Amp IM PRN (21:06)
[2022-04-17] MEDS ORDERED: Water For Irrigation,Sterile 1,000 ML Container IRR PRN (21:06)
[2022-04-17] MEDS ORDERED: Misoprostol 200 MCG Tab PO PRN (21:06)
[2022-04-17] MEDS ORDERED: Sodium Chloride 0.9% 2.5 ML Syringe FLUSH PRN (21:06)
[2022-04-17] MEDS ORDERED: Sodium Chloride 0.9% 20 ML SDV IV PRN (21:06)
[2022-04-17] MEDS ORDERED: Methylergonovine 0.2 MG/1 ML Amp IM PRN (21:06)
[2022-04-17] MEDS ORDERED: Terbutaline 1 MG/ML SDV SUBCUT PRN (21:13)
[2022-04-17] MEDS ORDERED: Misoprostol 25 MCG (1/4 of 100 MCG) Tab VAG PRN ×2 (21:13)
[2022-04-17] MEDS ORDERED: Oxytocin/0.9 % Sodium Chloride 30 UNIT/500 ML BAG IV SCH ×2 (21:15)
[2022-04-17] MEDS ORDERED: Acetaminophen 500 MG Tab PO ONE (21:26)
[2022-04-18] MEDS: Butorphanol 1 MG/ML SDV IVPUSH PRN ×2 (02:33→03:55)
[2022-04-18] MEDS ORDERED: Misoprostol 25 MCG (1/4 of 100 MCG) Tab VAG PRN ×2 (04:00)
[2022-04-18] MEDS: Lactated Ringers 1,000 ML IV SCH ×2 (04:09→07:00)
[2022-04-18] MEDS ORDERED: Ropivacaine/PF 400 MG/200 ML PCA ONE (04:15)
[2022-04-18] MEDS ORDERED: Bupivacaine 0.5% 10 ML SDV ONE (04:15)
[2022-04-18] MEDS ORDERED: ePHEDrine 50 MG/ML SDV IVPUSH PRN ×2 (04:41)
[2022-04-18] MEDS ORDERED: Phenylephrine HCl In 0.9% NaCl 1 MG/10 ML Vial IVPUSH PRN (04:41)
[2022-04-18] MEDS ORDERED: Phenylephrine HCl In 0.9% NaCl 1 MG/10 ML Vial IVPUSH SCH (04:45)
[2022-04-18] MEDS ORDERED: Ropivacaine HCl/PF 400 MG in Premix Bag 1 BAG EPIDUR SCH (04:45)
[2022-04-18] MEDS ORDERED: Ibuprofen 400 MG Tab PO PRN (10:15)
[2022-04-18] MEDS ORDERED: Docusate Sodium 100 MG Cap PO PRN (10:15)
[2022-04-18] MEDS ORDERED: Lanolin 100% Cream 7 GM Tube TOP PRN (10:15)
[2022-04-18] MEDS ORDERED: Tranexamic Acid 1,000 MG in Sodium Chloride 0.9% 100 ML IV PRN (10:15)
[2022-04-18] MEDS ORDERED: Acetaminophen 500 MG Tab PO PRN ×2 (10:15)
[2022-04-18] MEDS ORDERED: Bisacodyl 10 MG Supp RECTAL PRN (10:15)
[2022-04-18] MEDS ORDERED: Witch Hazel Medicated Pads 40/Jar TOP PRN (10:15)
[2022-04-18] MEDS ORDERED: Benzocaine/Menthol 20%-0.5% Spray 78 GM Cannister TOP PRN (10:15)
[2022-04-18] MEDS: Ibuprofen 800 MG Tab PO PRN (13:24)
[2022-04-19] MEDS: Ibuprofen 800 MG Tab PO PRN (04:19)
[2022-04-19 08:22] VITALS: PULSE 56
[2022-04-19 08:41] VITALS: BP 137/84
== END 2022-04-19 13:28 | disposition home or self-care (01) | DRG 807 ==
LOC: MW.OBCHECK 20:16 → MW.OB 20:16 → MW.OBCHECK 21:07 → MW.OB 21:07 → OBSVTOIN 04-18 10:15 → MW.OB 04-18 11:41
PROVIDERS: ADMIT Obstetrics & Gynecology; ATTEND Obstetrics & Gynecology
PROC: 10E0XZZ Delivery of Products of Conception, External Approach (ICD-10-PCS; principal; 2022-04-18)
PROC: 3E033VJ Introduction of Other Hormone into Peripheral Vein, Percutaneous Approach (ICD-10-PCS; 2022-04-18)
PROC: 3E0P7VZ Introduction of Hormone into Female Reproductive, Via Natural or Artificial Opening (ICD-10-PCS; 2022-04-18)
PROC: 3E0R3BZ Introduction of Anesthetic Agent into Spinal Canal, Percutaneous Approach (ICD-10-PCS; 2022-04-18)
PROC: 00HU33Z Insertion of Infusion Device into Spinal Canal, Percutaneous Approach (ICD-10-PCS; 2022-04-18)
PROC: 10H07YZ Insertion of Other Device into Products of Conception, Via Natural or Artificial Opening (ICD-10-PCS; 2022-04-18)
DX: O12.24 Gestational edema with proteinuria, complicating childbirth (principal); Z37.0 Single live birth; O99.214 Obesity complicating childbirth; E66.01 Morbid (severe) obesity due to excess calories; O24.429 Gestational diabetes mellitus in childbirth, unspecified control; O99.02 Anemia complicating childbirth; D64.9 Anemia, unspecified; O99.334 Smoking (tobacco) complicating childbirth; F17.210 Nicotine dependence, cigarettes, uncomplicated; Z20.822 Contact with and (suspected) exposure to COVID-19; Z3A.39 39 weeks gestation of pregnancy
CPT/HCPCS: 36415; 51702; 82803; 82947; 85014; 85018; 85027; 86592; 86850; 86900; 86901; A9270-GY; J0595; J2590; J2795; J3490; J7120; U0002

== ENCOUNTER 2022-10-22 11:32 | Emergency (ER) | payer MEDICAID | END 2022-10-22 12:34 | disposition left against medical advice (07) | LOC: MW.ED 11:32 | DX: Z53.21 Procedure and treatment not carried out due to patient leaving prior to being seen by health care provider (principal) ==

== ENCOUNTER 2022-12-15 15:14 | Emergency (ER) | payer MEDICAID ==
[2022-12-15] MEDS ORDERED: Amoxicillin/Clavulanate K 875-125 MG Tab PO ONE (15:39)
[2022-12-15] MEDS ORDERED: Lidocaine 1% PF 2 ML SDV INJECT ONE (15:41)
[2022-12-15] MEDS ORDERED: Bupivacaine 0.5% 10 ML SDV INJECT ONE (15:41)
[2022-12-15 16:22] VITALS: BP 120/75; PULSE 87
== END 2022-12-15 16:00 | disposition home or self-care (01) ==
LOC: MW.ED 15:14
DX: K04.7 Periapical abscess without sinus (principal); K08.9 Disorder of teeth and supporting structures, unspecified; Z88.8 Allergy status to other drugs, medicaments and biological substances
CPT/HCPCS: 64400; 99282; A9270; J3490; 99283

== ENCOUNTER 2023-03-06 20:20 | Emergency (ER) | payer MEDICAID ==
[2023-03-06] MEDS ORDERED: Sodium Chloride 0.9% 1,000 ML IV ONE (20:47)
[2023-03-06] MEDS ORDERED: Sodium Chloride 0.9% 2.5 ML Syringe FLUSH PRN (20:47)
[2023-03-06] MEDS ORDERED: Acetaminophen 500 MG Tab PO ONE (20:47)
[2023-03-06] MEDS ORDERED: Naloxone 0.4 MG/ML SDV IVPUSH PRN (20:47)
[2023-03-06] MEDS ORDERED: Sodium Chloride 0.9% 10 ML Syringe FLUSH PRN (20:47)
[2023-03-06] MEDS ORDERED: Ondansetron 4 MG/2 ML SDV IVPUSH ONE (20:47)
[2023-03-06] MEDS ORDERED: Morphine 4 MG/ML Syringe IVPUSH ONE (20:47)
[2023-03-06 21:03] LABS: BASOPHILS ABSOLUTE AUTO 0.02 K/uL (0.00-0.20); BASOPHILS PERCENT AUTO 0.2 % (0.0-1.0); EOSINOPHILS ABSOLUTE AUTO 0.07 K/uL (0.00-0.45); EOSINOPHILS PERCENT AUTO 0.7 % (0.0-6.0); HEMATOCRIT 39.2 % (37.0-47.0); HEMOGLOBIN 13.5 g/dL (12.0-16.0); IMMATURE GRAN ABSOLUTE AUTO 0.03 K/uL (0.00-0.05); IMMATURE GRAN PERCENT AUTO 0.3 % (0.0-0.4); LYMPHOCYTES PERCENT AUTO 20.4 % (24.0-44.0); MEAN CORPUSCULAR HEMOGLOBIN 29.7 pg (28.0-32.0); MEAN CORPUSCULAR HGB CONC 34.4 g/dL (32.0-36.0); MEAN CORPUSCULAR VOLUME 86.3 fL (83.0-99.0); MONOCYTES ABSOLUTE AUTO 0.56 K/uL (0.00-0.80); MONOCYTES PERCENT AUTO 5.5 % (0.0-8.0); NEUTROPHILS ABSOLUTE AUTO 7.49 K/uL (1.80-7.70); NEUTROPHILS PERCENT AUTO 72.9 % (41.0-71.0); PLATELET COUNT,PLT 316 K/uL (150-400); RED BLOOD CELL COUNT 4.54 M/uL (4.10-5.30); WHITE BLOOD CELL COUNT,WBC 10.27 K/uL (3.9-11.3)
[2023-03-06 21:16] LABS: APPEARANCE,URINE SLT CLOUDY; GLUCOSE,URINE NEGATIVE (NEGATIVE); KETONES,URINE >=80 mg/dL (NEGATIVE); LEUKOCYTE ESTERASE,URINE NEGATIVE (NEGATIVE); NITRITE,URINE POSITIVE (NEGATIVE); OCCULT BLOOD,URINE NEGATIVE (NEGATIVE); PROTEIN,URINE 100 mg/dL (NEGATIVE); UROBILINOGEN,URINE 0.2 EU/dL (<2.0)
[2023-03-06 21:28] LABS: BILIRUBIN,URINE MODERATE (NEGATIVE); COLOR,URINE DARK YELLOW
[2023-03-06 21:29] LABS: BACTERIA,URINE MODERATE (NEGATIVE); EPITHELIAL CELLS,URINE FEW (NONE-FEW); RBC,URINE 0-1 (0-2/HPF)
[2023-03-06] MEDS ORDERED: cefTRIAXone 2 GM in Sodium Chloride 0.9% 50 ML IV ONE (21:35)
[2023-03-06 21:51] LABS: A/G RATIO 0.9 (0.9-1.6); ALBUMIN 3.5 g/dL (3.4-5.0); BILIRUBIN TOTAL 0.4 mg/dL (0.2-1.0); CARBON DIOXIDE,CO2 25.5 mmol/L (21.0-32.0); CREATININE 0.7 mg/dL (0.6-1.0); EST CRCL DRUG DOSING (CG) 98.09 mL/min; POTASSIUM,K 3.1 mmol/L (3.5-5.1); PROTEIN TOTAL,TP 7.6 g/dL (6.4-8.2)
[2023-03-07 00:18] VITALS: BP 110/57; PULSE 69
== END 2023-03-07 00:16 | disposition home or self-care (01) ==
LOC: MW.ED 20:20
DX: O9A.211 Injury, poisoning and certain other consequences of external causes complicating pregnancy, first trimester (principal); O23.91 Unspecified genitourinary tract infection in pregnancy, first trimester; Z88.2 Allergy status to sulfonamides; Z90.49 Acquired absence of other specified parts of digestive tract; Z3A.12 12 weeks gestation of pregnancy
CPT/HCPCS: 36415; 76817; 80053; 81001; 83690; 84702; 85025; 86900; 86901; 96361; 96365; 96375; 99284; A9270; J0696; J2270; J2405; J3490; J7030

== ENCOUNTER 2023-06-04 14:15 | Emergency (ER) | payer MEDICAID | END 2023-06-04 16:00 | disposition left against medical advice (07) | LOC: MW.ED 14:15 | DX: Z53.21 Procedure and treatment not carried out due to patient leaving prior to being seen by health care provider (principal) ==

== ENCOUNTER 2023-07-07 12:22 | Emergency (ER) | payer MEDICAID ==
[2023-07-07] MEDS ORDERED: Lidocaine 1% with EPINEPHrine 1:100,000 10 ML MDV INJECT ONE (13:04)
[2023-07-07] MEDS: Lidocaine 1% with EPINEPHrine 1:200,000 30 ML SDV INJECT ONE (14:07)
[2023-07-07] MEDS: Diphtheria,Pertussis(Acell),Tetanus Vaccine 0.5 ML Syringe IM ONE (14:07)
[2023-07-07 18:05] VITALS: BP 141/86; PULSE 93
== END 2023-07-07 14:11 | disposition home or self-care (01) ==
LOC: MW.ED 12:22
DX: S61.512A Laceration without foreign body of left wrist, initial encounter (principal); Z23 Encounter for immunization; Z75.8 Other problems related to medical facilities and other health care; W26.9XXA Contact with unspecified sharp object(s), initial encounter
CPT/HCPCS: 12005; 90471; 90715; 99282; J3490; 99283

== ENCOUNTER 2023-07-17 12:39 | Emergency (ER) | payer MEDICAID ==
[2023-07-17 12:55] VITALS: BP 124/59; PULSE 84
== END 2023-07-17 14:00 | disposition home or self-care (01) ==
LOC: MW.ED 12:39
DX: O99.713 Diseases of the skin and subcutaneous tissue complicating pregnancy, third trimester (principal); L03.114 Cellulitis of left upper limb; Z3A.28 28 weeks gestation of pregnancy; Z88.8 Allergy status to other drugs, medicaments and biological substances; Z79.82 Long term (current) use of aspirin; Z75.8 Other problems related to medical facilities and other health care
CPT/HCPCS: 99283

== ENCOUNTER 2023-07-28 18:12 | Emergency (ER) | payer MEDICAID ==
[2023-07-28 19:46] VITALS: BP 120/87; PULSE 68
[2023-07-28] MEDS: Clindamycin HCl 150 MG Cap PO STA (20:35)
== END 2023-07-28 21:00 | disposition home or self-care (01) ==
LOC: MW.ED 18:12
DX: O99.613 Diseases of the digestive system complicating pregnancy, third trimester (principal); K04.7 Periapical abscess without sinus; K03.81 Cracked tooth; Z75.8 Other problems related to medical facilities and other health care; Z88.8 Allergy status to other drugs, medicaments and biological substances; Z79.82 Long term (current) use of aspirin; Z79.899 Other long term (current) drug therapy; Z3A.00 Weeks of gestation of pregnancy not specified
CPT/HCPCS: 99282; A9270; 99283

== ENCOUNTER 2024-02-05 20:56 | Emergency (ER) | payer MEDICAID ==
[2024-02-05 21:23] LABS: HEMATOCRIT 35.6 % (37.0-47.0); HEMOGLOBIN 11.3 g/dL (12.0-16.0); MEAN CORPUSCULAR HEMOGLOBIN 27.3 pg (28.0-32.0); MEAN CORPUSCULAR HGB CONC 31.7 g/dL (32.0-36.0); MEAN PLATELET VOLUME 9.3 fL (9.4-12.3); NRBC ABSOLUTE 0.05 K/uL (0.00-0.02); NRBC PERCENT 0.2 /100WBC (0.0-0.2); PLATELET COUNT,PLT 364 K/uL (150-400); RED BLOOD CELL COUNT 4.14 M/uL (4.10-5.30); WHITE BLOOD CELL COUNT,WBC 27.05 K/uL (3.9-11.3)
[2024-02-05 21:30] LABS: INR 1.07 (0.86-1.11)
[2024-02-05] MEDS: Midazolam HCl In 0.9 % NaCl/Pf 100 ML IV SCH (21:32)
[2024-02-05] MEDS: Sodium Chloride 0.9% 1,000 ML IV ONE (21:33)
[2024-02-05 21:37] LABS: AMPHETAMINES SCREEN, URINE NEGATIVE (CUTOFF=500); BARBITURATE SCREEN,URINE NEGATIVE (CUTOFF=200); BENZODIAZEPINES SCREEN,URINE NEGATIVE (CUTOFF=150); BUPRENORPHINE SCREEN,URINE NEGATIVE (CUTOFF=10); METHADONE SCREEN, URINE NEGATIVE (CUTOFF=200); METHAMPHETAMINES SCREEN, URINE NEGATIVE (CUTOFF=500); OXYCODONE SCREEN,URINE NEGATIVE (CUT0FF=100); PCP SCREEN,URINE NEGATIVE (CUTOFF=25); THC SCREEN,URINE 20 NG/ML PRESUMPTIVE POSITIVE (CUTOFF=50)
[2024-02-05] MEDS: Tenecteplase 50 MG Kit IV STA (21:38)
[2024-02-05] MEDS: Clopidogrel 75 MG Tab PO ONE (21:39)
[2024-02-05] MEDS: Heparin Sodium 5,000 Units/ML Vial IVPUSH ONE (21:39)
[2024-02-05] MEDS: Heparin Sodium/0.45% NaCl 25,000 UNITS/250 ML BAG IV SCH (21:40)
[2024-02-05 21:41] LABS: ALBUMIN 3.3 g/dL (3.4-5.0); BILIRUBIN TOTAL 0.2 mg/dL (0.2-1.0); CALCIUM 8.1 mg/dL (8.5-10.1); CARBON DIOXIDE,CO2 20.5 mmol/L (21.0-32.0); CREATININE 1.1 mg/dL (0.6-1.0); EST CRCL DRUG DOSING (CG) 70.01 mL/min; POTASSIUM,K 3.6 mmol/L (3.5-5.1); PROTEIN TOTAL,TP 6.7 g/dL (6.4-8.2)
[2024-02-05] MEDS: Rocuronium 100 MG/10 ML MDV IVPUSH ONE (21:41)
[2024-02-05] MEDS: Etomidate 2 MG/ML 20 ML SDV IVPUSH ONE (21:42)
[2024-02-05] MEDS: Labetalol 100 MG/20 ML MDV IVPUSH ONE (21:50)
[2024-02-05] MEDS: Labetalol 100 MG/20 ML MDV ONE (22:01)
[2024-02-05 22:03] LABS: BAND ABSOLUTE MAN 0.81; BAND PERCENT MAN 3 %; LYMPHOCYTES ABSOLUTE MAN 12.17 K/uL (1.00-4.80); LYMPHOCYTES PERCENT MAN 45 % (24-44); MONOCYTES ABSOLUTE MAN 1.08 K/uL (0.00-0.80); MONOCYTES PERCENT MAN 4 % (0-8); SEG NEUTROPHILS ABSOLUTE MAN 12.98 K/uL (1.80-7.70); SEG NEUTROPHILS PERCENT MAN 48 % (41-71)
[2024-02-05] MEDS: Sodium Chloride 0.9% 2.5 ML Syringe FLUSH PRN ×2 (22:03)
[2024-02-05] MEDS: Sodium Chloride 0.9% 10 ML Syringe FLUSH PRN ×2 (22:03)
[2024-02-05] MEDS: Aspirin 325 MG Tab PO STA (22:17)
[2024-02-05 22:21] LABS: BASE EXCESS ARTERIAL -7.5 (-2.0-3.0); BICARBONATE,ARTERIAL 18 mEq/L (22-26); PCO2 ARTERIAL 36 mmHG (35-45); PO2 ARTERIAL 76 mmHG (80-105)
[2024-02-05] MEDS: Midazolam 5 MG/ML SDV IVPUSH ONE (22:24)
[2024-02-05] MEDS: Midazolam 5 MG/ML SDV ONE (22:26)
[2024-02-05] MEDS: fentaNYL 100 MCG/2 ML SDV IVPUSH ONE (22:41)
[2024-02-05] MEDS: fentaNYL 100 MCG/2 ML SDV ONE (22:48)
[2024-02-05] MEDS: propofoL 1,000 MG/100 ML 100 ML IV SCH (22:57)
[2024-02-05] MEDS: Propofol 200 MG/20 ML SDV IVPUSH ONE (23:07)
[2024-02-05] MEDS: Norepinephrine Bit/D5W Premix 250 ML IV SCH (23:09)
[2024-02-05] MEDS: Propofol 200 MG/20 ML SDV ONE (23:15)
[2024-02-05] MEDS: Norepinephrine Bit/D5W Premix 250 ML ONE (23:16)
[2024-02-06 00:08] LABS: APPEARANCE,URINE HAZY; BILIRUBIN,URINE NEGATIVE (NEGATIVE); COLOR,URINE YELLOW; GLUCOSE,URINE 100 mg/dL (NEGATIVE); KETONES,URINE NEGATIVE (NEGATIVE); LEUKOCYTE ESTERASE,URINE NEGATIVE (NEGATIVE); NITRITE,URINE NEGATIVE (NEGATIVE); OCCULT BLOOD,URINE SMALL (NEGATIVE); PROTEIN,URINE 100 mg/dL (NEGATIVE); UROBILINOGEN,URINE 0.2 EU/dL (<2.0)
[2024-02-06 00:18] LABS: BACTERIA,URINE 1+ (NEGATIVE); EPITHELIAL CELLS,URINE RARE (NONE-FEW)
[2024-02-06 00:19] LABS: AMORPHOUS SEDIMENT,URINE LIGHT (NEGATIVE)
[2024-02-06 01:03] VITALS: BP 111/46; PULSE 112
[2024-02-06 01:22] LABS: LACTIC ACID 5.7 mmol/L (0.4-2.0)
[2024-02-06] MEDS: Sodium Chloride 0.9% 1,000 ML IV STA (02:55)
[2024-02-06] MEDS: EPINEPHrine 1:10,000 1 MG/10 ML Syringe IVPUSH ONE (03:00)
[2024-02-07] MEDS: Midazolam HCl In 0.9 % NaCl/Pf 100 ML ONE (06:44)
== END 2024-02-06 03:30 | disposition expired ==
LOC: MW.ED 20:56 → UNDOADMIN 02-06 01:12 → MW.ICU 02-06 01:12 → UNDODISIN 02-06 02:26
DX: I21.9 Acute myocardial infarction, unspecified (principal); R57.0 Cardiogenic shock; Z88.8 Allergy status to other drugs, medicaments and biological substances; Z79.899 Other long term (current) drug therapy; Z90.49 Acquired absence of other specified parts of digestive tract
CPT/HCPCS: 31500; 36415; 36556; 36600; 71045; 80053; 80305; 80307; 81001; 82803; 83605; 84484; 85025; 85610; 85730; 92950; 93005; 96365; 96366; 96368; 96375; 99291; 99292; A9270; J0171; J1644; J1920; J2250; J2251; J2704; J3010; J3101; J3490; J7030; J7050